=== PATIENT | male | born 1945 | race Caucasian/White ===

== ENCOUNTER → 2018-07-04 06:30 | Outpatient (CLI) | payer BC, SELFPAY ==
[2018-07-04 07:31] LABS: Absolute Lymphocyte Count 1.64 X10^3/ul (0.83-4.51); Absolute Neutrophil Count 3.8 X10^3/uL (2.0-7.7); Basophil# 0.04 X10^3/uL; Basophil% 0.6 % (0-1); Eosinophil# 0.34 X10^3/uL; Eosinophils% 5.2 % (0-5); Hemoglobin 15.2 g/dl (13.0-16.5); Lymphocyte # 1.64 X10^3/ul (4.0); Lymphocyte % 25.1 % (19-41); Mean Corp Hgb Conc 32.3 g/gl (32-36); Mean Corpuscular Hgb 34.3 pg (27.0-32.0); Mean Corpuscular Volume 106.1 fL (80-94); Mean Platelet Vol. 10.7 fl (6.2-12.0); Monocyte# 0.75 X10^3/uL; Monocyte% 11.5 % (0-10); Neutrophil # 3.75 X10^3/uL (2.7-7.7); Neutrophil % 57.4 % (47-70); POSITIVE COUNT NO; POSITIVE DIFFERENTIAL NO; POSITIVE MORPHOLOGY NO; Platelet Count 169 K/mm3 (150-450); RBC Distribution Width CV 13.5 % (11.6-14.6); RBC Distribution Width SD 52.5 fl (35.1-43.9); Red Blood Count 4.43 M/mm3 (4.6-6.2); White Blood Count 6.5 K/mm3 (4.4-11.0)
[2018-07-04 07:34] LABS: Color, Urine Yellow (Yellow); Glucose, Dipstick Normal (Normal); Ketone-Dipstick Negative (Negative); Leukocyte Esterase-Dipstick 25 /ul (Negative); Nitrite-Dipstick Negative (Negative); Occult Blood-Urine 10 /ul (Negative); Protein-Dipstick 15 mg/dl (Negative); Specific Gravity, Urine 1.015 (1.002-1.030); Urine Bilirubin Dipstick Negative (Negative); Urine Clarity Clear (Clear); Urine Urobilinogen 1 mg/dl (Normal); Urine pH 6.5 (5.0 - 8.0)
[2018-07-04 07:46] LABS: AST(SGOT) 22 U/L (15-37); Alanine Aminotransfer ALT/SGPT 26 U/L (16-61); Albumin, Serum 3.6 g/dL (3.2-5.0); Alkaline Phosphatase 129 U/L (45-117); Anion Gap 9 (5-15); BUN 16 mg/dL (7-18); BUN/Creat Ratio 15.7 RATIO (10-20); Calcium,Total 8.9 mg/dL (8.5-10.1); Chloride 103 mmol/L (98-107); Cholesterol 110 mg/dL (200); Creatinine, Serum 1.02 mg/dL (0.70-1.30); EST Glomerular Filtration Rate 76 mL/min (>60); Est Glom Filt Rate - Afr Amer 92 mL/min (>60); Globulin 3.7 g/dL (2.2-4.2); Glucose 123 mg/dL (74-106); High Density Lipoprotein 57 mg/dL; PSA,Total - Annual Screen 2.93 ng/mL (0.00-4.00); Protein, Total 7.3 g/dL (6.4-8.2); Sodium Level 142 mmol/L (136-145); Triglycerides 39 mg/dL; Very Low Density Lipoprotein 8 mg/dL (5-40)
[2018-07-04 07:58] LABS: Hemoglobin A1c 6.3 % (4.2-6.3)
== END ==
PROVIDERS: Family Provider Family Medicine; PCP Family Medicine; Visit Provider Family Medicine
DX: Z00.00 Encounter for general adult medical examination without abnormal findings (principal); E53.8 Deficiency of other specified B group vitamins; E78.70 Disorder of bile acid and cholesterol metabolism, unspecified; I10 Essential (primary) hypertension; E11.9 Type 2 diabetes mellitus without complications; Z12.5 Encounter for screening for malignant neoplasm of prostate
CPT/HCPCS: 36415; 80053; 80061; 81002; 83036; 84153; 85025; G0103

== ENCOUNTER → 2019-01-09 08:28 | Outpatient (CLI) | payer BC, SELFPAY ==
[2018-05-19 10:23] VITALS: BMI 28.3
[2019-01-09 16:07] LABS: Hemoglobin A1c 6.2 % (4.2-6.3)
[2019-01-09 16:33] LABS: Cholesterol 119 mg/dL (200); High Density Lipoprotein 70 mg/dL; Triglycerides 39 mg/dL; Very Low Density Lipoprotein 8 mg/dL (5-40)
== END ==
PROVIDERS: Family Provider Family Medicine; PCP Family Medicine
DX: E11.9 Type 2 diabetes mellitus without complications (principal); E78.00 Pure hypercholesterolemia, unspecified
CPT/HCPCS: 36415; 80061; 83036

== ENCOUNTER → 2019-07-13 07:56 | Outpatient (CLI) | payer BC, SELFPAY ==
[2018-05-19 10:23] VITALS: BMI 28.3
[2019-07-13 08:26] LABS: Absolute Lymphocyte Count 1.48 X10^3/uL (0.83-4.51); Absolute Neutrophil Count 5.9 X10^3/uL (2.0-7.7); Basophil# 0.05 X10^3/uL; Basophil% 0.6 % (0-1); Eosinophil# 0.39 X10^3/uL; Eosinophils% 4.5 % (0-5); Hematocrit 44.5 % (40-54); Hemoglobin 14.6 g/dL (13.0-16.5); Lymphocyte # 1.48 X10^3/ul (4.0); Lymphocyte % 17.1 % (19-41); Mean Corp Hgb Conc 32.8 g/dL (32-36); Mean Corpuscular Hgb 34.6 pg (27.0-32.0); Mean Corpuscular Volume 105.5 fL (80-94); Mean Platelet Vol. 10.8 fl (6.2-12.0); Monocyte# 0.85 X10^3/uL; Monocyte% 9.8 % (0-10); NRBC Flagged by Analyzer 0 % (0-5); Neutrophil # 5.87 X10^3/uL (2.7-7.7); Neutrophil % 67.7 % (47-70); Platelet Count 177 K/mm3 (150-450); RBC Distribution Width CV 12.8 % (11.6-14.6); Red Blood Count 4.22 M/mm3 (4.6-6.2); White Blood Count 8.7 K/mm3 (4.4-11.0)
[2019-07-13 08:27] LABS: Color, Urine Yellow (Yellow); Glucose, Dipstick Normal (Normal); Ketone-Dipstick 5 mg/dl (Negative); Leukocyte Esterase-Dipstick 100 /ul (Negative); Nitrite-Dipstick Negative (Negative); Occult Blood-Urine 10 /ul (Negative); Protein-Dipstick 30 mg/dl (Negative); Specific Gravity, Urine 1.025 (1.002-1.030); Urine Bilirubin Dipstick Negative (Negative); Urine Clarity Sl. Cloudy (Clear); Urine Urobilinogen 1 mg/dl (Normal)
[2019-07-13 08:56] LABS: ALB/GLOB Ratio 1.1 RATIO (0.9-2.4); AST(SGOT) 23 U/L (15-37); Alanine Aminotransfer ALT/SGPT 28 U/L (16-61); Albumin, Serum 3.9 g/dL (3.2-5.0); Alkaline Phosphatase 123 U/L (45-117); Anion Gap 8 (5-15); BUN 28 mg/dL (7-18); BUN/Creat Ratio 24.1 RATIO (10-20); Calcium,Total 9.1 mg/dL (8.5-10.1); Chloride 106 mmol/L (98-107); Cholesterol 131 mg/dL (200); Creatinine, Serum 1.16 mg/dL (0.70-1.30); EST Glomerular Filtration Rate 65 mL/min (>60); Est Glom Filt Rate - Afr Amer 79 mL/min (>60); Globulin 3.7 g/dL (2.2-4.2); Glucose 128 mg/dL (74-106); High Density Lipoprotein 61 mg/dL; PSA,Total - Annual Screen 3.17 ng/mL (0.00-4.00); Potassium 3.9 mmol/L (3.5-5.1); Protein, Total 7.6 g/dL (6.4-8.2); Sodium Level 142 mmol/L (136-145); Triglycerides 58 mg/dL; Very Low Density Lipoprotein 12 mg/dL (5-40)
== END ==
PROVIDERS: Family Provider Family Medicine; PCP Family Medicine; Referring Provider Family Medicine; Visit Provider Family Medicine
DX: Z00.00 Encounter for general adult medical examination without abnormal findings (principal); E11.9 Type 2 diabetes mellitus without complications; I10 Essential (primary) hypertension; E78.00 Pure hypercholesterolemia, unspecified; D51.0 Vitamin B12 deficiency anemia due to intrinsic factor deficiency; Z12.5 Encounter for screening for malignant neoplasm of prostate
CPT/HCPCS: 36415; 80053; 80061; 81002; 83036; 84153; 85025; G0103

== ENCOUNTER → 2019-08-03 09:05 | Outpatient (CLI) | payer BC, SELFPAY ==
[2019-07-23 08:37] VITALS: BMI 27.1
--- NOTE | 2019-08-03 09:12 | EKG12_ITS ---
Test Reason : PRE-OP Blood Pressure : / mmHG Vent. Rate : 052 BPM Atrial Rate : 052 BPM P-R Int : 178 ms QRS Dur : 092 ms QT Int : 448 ms P-R-T Axes : 058 -07 023 degrees QTc Int : 416 ms Sinus bradycardia Otherwise normal ECG Confirmed by DOV KUO, ARLEEN ([id number]), book editor VIJAYA WILSON ([id number]) on 08/06/2019 9:45:11 AM Referred By: Nasir Lopez Confirmed By:ARLEEN MONAE MD
--- NOTE | 2019-08-03 09:17 | RAD_ITS ---
STUDY: X-RAY CHEST REASON FOR EXAM: Male, 74 years old. Pre-op TECHNIQUE: Frontal and lateral views of the chest. COMPARISON: None. FINDINGS: The lungs are hyperexpanded. There are coarsened interstitial markings suggestive of mild chronic fibrosis. No gross focal infiltrates. No gross effusions. Normal size heart. Normal mediastinum and trisha. Normal visualized pulmonary arteries. Normal visualized aortic arch and descending thoracic aorta. Normal visualized thoracic spine. Normal visualized ribs, clavicles, and shoulders. There is no demonstrated abnormality of the visualized soft tissue structures of the upper abdomen. RAD/Chest PA and Lateral IMPRESSION: There are findings consistent with COPD. There is no evidence of acute chest disease. Electronically Signed: Bijan Lopez MD at 14:01 EST , Service support ,
== END ==
PROVIDERS: Family Provider Family Medicine; PCP Family Medicine; Referring Provider Orthopaedic Surgery; Visit Provider Orthopaedic Surgery
DX: Z01.810 Encounter for preprocedural cardiovascular examination (principal); Z01.811 Encounter for preprocedural respiratory examination
CPT/HCPCS: 71046; 93005

== ENCOUNTER 2019-10-05 08:43 | Inpatient (IN) | payer BC, MEDICARE, SELFPAY ==
[2019-07-23 08:37] VITALS: BMI 27.1
[2019-10-05] VITALS (15 sets, daily range): BP systolic 114–143; BP diastolic 47–93; PULSE 63–115; RESP 13–20; TEMP 36.6–37.3; O2SAT 94–98; BMI 27.8; BMI 27.5
--- NOTE | 2019-10-05 08:52 | EKG12_ITS ---
Test Reason : SYNCOPE Blood Pressure : / mmHG Vent. Rate : 088 BPM Atrial Rate : 129 BPM P-R Int : 000 ms QRS Dur : 086 ms QT Int : 376 ms P-R-T Axes : 000 -12 008 degrees QTc Int : 454 ms Atrial fibrillation Abnormal ECG Confirmed by ANAND KOU, CHARLY ([id number]), photograph editor VIJAYA WILSON ([id number]) on 10/09/2019 9:04:04 AM Referred By: José Miguel Sibley Confirmed By:CHARLY MICHEL MD
--- NOTE | 2019-10-05 08:53 | ED.VIS.GEN ---
History of Present Illness Chief Complaint: Syncope Detail of Chief Complaint: Near syncope Informant: Patient Onset: Today Current Severity: - - Resolved Maximum Severity: Moderate Narrative: Patient had right knee replacement performed on October 01. Patient started physical therapy yesterday. He states he got up this morning and took 2 oxycodone and went to take a shower before PT. He became dizzy and lightheaded in the shower and felt as if he may pass out. He denies chest pain or palpitations. He does not feel short of breath. - Past Medical History (1) High cholesterol Status: Chronic (2) Premature atrial contractions Status: Chronic (3) Premature ventricular contraction Status: Chronic (4) Valvular heart disease Status: Chronic (5) Essential hypertension Status: Chronic (6) Nonrheumatic aortic (valve) insufficiency Status: Chronic (7) Nonrheumatic mitral valve regurgitation Status: Chronic (8) Type 2 diabetes mellitus Status: Chronic Past Medical History - Allergies and Home Meds Allergies/Adverse Reactions: Allergies No Known Allergies Allergy (Unverified 10/05/19 08:47) Primary Care Physician: David Malin MD [Primary Care Provider] - Doctors: Dr. Nasir Lopez Prior records reviewed: Yes Surgical History: - - Right knee replacement Lives: Spouse/ Significant Other Smoking Status: Former smoker Review of Systems General: Denies: Chills, Fever Eyes: Denies: Visual changes - bilaterally ENT: Denies: Bilateral ear pain Cardiovascular: Denies: Chest pain, Palpitations Respiratory: Denies: Dyspnea, Cough Gastrointestinal: Denies: Abdominal pain, Nausea, Vomiting, Diarrhea Musculoskeletal: Reports: Arthralgias, Extremity Pain Skin: Reports: Wounds Neurological: Denies: Headache Hematologic: Denies: Easy bruising Allergy: Denies: Uticaria Physical Exam Vital Signs/Narrative: Vital Signs Temp Pulse Resp BP Pulse Ox 10/05/19 08:49 97.8 F 101 H 18 127/75 H 97 10/05/19 08:44 97.8 F 95 16 127/75 H 95 Inital Vital Signs reviewed: Yes General: Well nourished, Well developed Head: Normocephalic ENT: Moist mucous membranes Neck: Supple Cardiovascular: Irregular Respiratory: No distress, CTA bilaterally Abdomen: Soft, Nontender, Nondistended Extremities: - - Healing incision over the anterior right knee. Mild surrounding ecchymosis. Calf is soft nontender. Neurological: Alert, Oriented x3 Psychological: Normal affect Diagnostic/Tx/Re-eval Impressions Chest CTA 10/05/19 09:07 IMPRESSION: No demonstrated PE, or thoracic aortic aneurysm or dissection Chronic interstitial changes in both lung chapa without a superimposed infiltrate or effusion, there is evidence of chronic bronchitis Degenerative bony changes Electronically Signed: Bryant Rm MD at 10:15 EST , Service support , 10/05/19 09:07 CTA Chest W/WO Contrast [CT] Stat Laboratory Results 10/05/19 10/05/19 09:00 09:00 WBC 15.0 H RBC 3.26 L Hgb 10.9 L Hct 33.8 L MCV 103.7 H MCH 33.4 H MCHC 32.2 RDW Std Deviation 51.0 H RDW Coeff of Victorina 13.4 Plt Count 184 MPV 11.1 Immature Gran % (Auto) 0.500 Neut % (Auto) 81.8 H Lymph % (Auto) 8.5 L [place] % (Auto) 6.9 Eos % (Auto) 2.0 Baso % (Auto) 0.3 Absolute Neuts (auto) 12.3 H Absolute Lymphs (auto) 1.28 Nucleated RBC % 0 Sodium 138 Potassium 3.6 Chloride 102 Carbon Dioxide 28.0 Anion Gap 8 BUN 20 H Creatinine 1.31 H Estim Creat Clear Calc 49.53 Est GFR (MDRD) Af Amer 68 Est GFR (MDRD) Non-Af 57 L BUN/Creatinine Ratio 15.3 Glucose 180 H Calcium 9.2 Troponin I < 0.015 - EKG Initial EKG Interpretation: Atrial Fibrillation - Atrial fibrillation [address] change. - Medical Decision Making Patient presents after near syncopal episode after taking his pain medication and getting a warm shower. The patient, however, is a new onset atrial fibrillation. It appears patient does have history of PACs and PVCs, but no documented history of atrial fibrillation. I spoke with patient's orthopedist, Dr. Nasir Lopez. Patient is given dose of Lovenox. Patient will be admitted for further treatment. ED Disposition - Plan for ED Patient: Disposition: Acute Care [facility] Diagnosis: New onset a-fib, Near syncope Referrals: David Malin MD [Primary Care Provider] -
[2019-10-05] MEDS: 0.9% Normal Saline 1,000 ML 150 ML IV (09:06)
--- NOTE | 2019-10-05 09:07 | CT_ITS ---
STUDY: CTA CHEST REASON FOR EXAM: Male, 74 years old. PT STATED KNEE REPLACEMENT X 4 DAYS AGO, DIZZINESS TODAY IN THE SHOWER RADIATION DOSAGE (If Supplied By Facility): CTDIvol = ( 13.61 ) mGy, DLP = ( 493.91 ) mGycm TECHNIQUE: The examination was performed with the intravenous administration of 100ml isovue 370. Post-processing of the angiographic images was performed, with multiplanar reformation and 3D reconstruction. Individualized dose optimization techniques were used for this CT. COMPARISON: None. FINDINGS: Normal enhancement of the main pulmonary artery and right and left pulmonary arteries. Normal enhancement of the bilateral peripheral pulmonary arteries. There is no demonstrated pulmonary embolism. Normal thoracic aorta and visualized great vessels. There is no demonstrated aortic dissection. Normal heart and pericardium. Normal mediastinum. Normal hilar regions. There is peribronchial thickening. The lungs are well expanded. Chronic interstitial changes in both lung chapa, no superimposed acute pulmonary process. Normal pleura. Normal chest wall structures. There are degenerative changes of thoracic spine. Normal visualized upper abdomen. CT/CTA Chest W/WO Contrast IMPRESSION: No demonstrated PE, or thoracic aortic aneurysm or dissection Chronic interstitial changes in both lung chapa without a superimposed infiltrate or effusion, there is evidence of chronic bronchitis Degenerative bony changes Electronically Signed: Bryant Rm MD at 10:15 EST , Service support ,
[2019-10-05 09:18] LABS: Absolute Lymphocyte Count 1.28 X10^3/uL (0.83-4.51); Absolute Neutrophil Count 12.3 X10^3/uL (2.0-7.7); Basophil# 0.05 X10^3/uL; Basophil% 0.3 % (0-1); Hematocrit 33.8 % (40-54); Hemoglobin 10.9 g/dL (13.0-16.5); Lymphocyte # 1.28 X10^3/ul (4.0); Lymphocyte % 8.5 % (19-41); Mean Corp Hgb Conc 32.2 g/dL (32-36); Mean Corpuscular Hgb 33.4 pg (27.0-32.0); Mean Corpuscular Volume 103.7 fL (80-94); Mean Platelet Vol. 11.1 fl (6.2-12.0); Monocyte# 1.04 X10^3/uL; Monocyte% 6.9 % (0-10); NRBC Flagged by Analyzer 0 % (0-5); Neutrophil # 12.29 X10^3/uL (2.7-7.7); Neutrophil % 81.8 % (47-70); Platelet Count 184 K/mm3 (150-450); RBC Distribution Width CV 13.4 % (11.6-14.6); Red Blood Count 3.26 M/mm3 (4.6-6.2)
[2019-10-05 09:37] LABS: Anion Gap 8 (5-15); BUN 20 mg/dL (7-18); BUN/Creat Ratio 15.3 RATIO (10-20); Calcium,Total 9.2 mg/dL (8.5-10.1); Chloride 102 mmol/L (98-107); Creatinine, Serum 1.31 mg/dL (0.70-1.30); EST Glomerular Filtration Rate 57 mL/min (>60); Est Glom Filt Rate - Afr Amer 68 mL/min (>60); Estimated Creatinine Clearance 49.53 ml/min; Glucose 180 mg/dL (74-106); Potassium 3.6 mmol/L (3.5-5.1); Sodium Level 138 mmol/L (136-145)
--- NOTE | 2019-10-05 10:32 | NURSING ---
DR RAMIREZ FOR DR CANDELARIA
--- NOTE | 2019-10-05 10:34 | NURSING ---
ANDRZEJU AFIB ASHLEY
[2019-10-05] MEDS: Enoxaparin 80 MG/0.8 ML Syringe SC ×2 (10:37→20:48)
--- NOTE | 2019-10-05 10:45 | PCM.HP.STD ---
Problem List (1) High cholesterol Status: Chronic (2) Near syncope Status: Acute (3) Essential hypertension Status: Chronic (4) Valvular heart disease Status: Chronic (5) Premature atrial contractions Status: Chronic (6) Type 2 diabetes mellitus Status: Chronic (7) Nonrheumatic aortic (valve) insufficiency Status: Chronic (8) Nonrheumatic mitral valve regurgitation Status: Chronic (9) Premature ventricular contraction Status: Chronic History of Present Illness Date of Admission: 10/05/19 Chief Complaint: Near syncope and new onset A. fib The patient is a 74 year old M with history of hypertension, valvular heart disease mild to moderate MR came to ER with near syncope and was found to be A. fib. Patient had right TKR on 10/01/[address] Nasir Lopez. In the morning today he took 2 oxycodone tablets and went to take a shower before physical therapy. He felt dizzy lightheaded in the shower but did not pass out. Denies any chest pain or palpitation. No shortness of breath. He has chronic cough for more than 3 months. No fever or chills, URI symptoms or lower urinary tract symptoms. In ED, EKG shows atrial fibrillation at 88 bpm. Previous EKG in August 2019 was normal sinus rhythm. Denies any previous history of A. fib. Basic labs in the ER shows leukocytosis 15,000, K3.6. BUN/creatinine 20/1.31. Glucose 180. First troponin negative Chest CT was done for concern of PE but was negative. Chronic interstitial changes found in both lung chapa without a superimposed infiltrate or effusion. Evidence of chronic bronchitis. Past Medical History Past Medical History (Chronic Problems): Chronic Problems (Last Reviewed 07/23/19 @ 08:42 by Asha Childers) High cholesterol (Chronic) Essential hypertension (Chronic) Valvular heart disease (Chronic) Premature atrial contractions (Chronic) Type 2 diabetes mellitus (Chronic) Nonrheumatic aortic (valve) insufficiency (Chronic) Nonrheumatic mitral valve regurgitation (Chronic) Premature ventricular contraction (Chronic) Medical History: Medical History (Last Reviewed 07/23/19 @ 08:42 by Asha Childers) Essential hypertension (Chronic) I10 Valvular heart disease (Chronic) I38 Premature atrial contractions (Chronic) I49.1 Type 2 diabetes mellitus (Chronic) E11.9 Nonrheumatic aortic (valve) insufficiency (Chronic) I35.1 Nonrheumatic mitral valve regurgitation (Chronic) I34.0 Premature ventricular contraction (Chronic) I49.3 Gout M10.9 Pernicious anemia D51.0 GERD (gastroesophageal reflux disease) K21.9 Allergies No Known Allergies Allergy (Unverified 10/05/19 08:47) Home Medications: Ambulatory Orders Medication Instructions Recorded allopurinol 300 mg tablet 300 mg PO QDAY 03/01/18 aspirin 81 mg tablet,delayed 81 mg PO BID 03/01/18 release atenolol 50 mg tablet 50 mg PO BID tab 03/01/18 enalapril maleate 20 mg tablet 20 mg PO BID tab 03/01/18 hydrochlorothiazide 25 mg tablet 25 mg PO QDAY 03/01/18 metformin 500 mg tablet 500 mg PO BID 03/01/18 mnmqxhtb-dphljgm-vgn-iron 3 1 tab PO QDAY tab 03/01/18 mg-folic 200 mcg-phytosterol 400 mg tablet Amlodipine Besylate 10 mg PO DAILY 10/05/19 Cholestrol Essential 1 tab PO BID 10/05/19 Esomeprazole Mag Trihydrate 20 mg PO DAILY 10/05/19 [Nexium] Glucos Sul 2Kcl/MSM/Chond/C/Mn 1 ea PO DAILY 10/05/19 [Glucosamine Chondroitin Cap] Hydrocodone Bitart/Apap 5-325 1 - 2 tab PO Q4H PRN PRN 10/05/19 [Niota 5MG-325MG] Milk Thistle 150 mg PO BID 10/05/19 Morphine [Morphine IR] 15 mg PO BID 10/05/19 Sennosides/Docusate Sodium [Dok 1 ea PO BID 10/05/19 Plus Tablet] Ubidecarenone/Vit E Acet [Co Q-10 1 ea PO DAILY 10/05/19 100 mg Softgel] Surgical History: Surgical History (Last Reviewed 07/23/19 @ 08:42 by Asha Childers) History of hernia repair Z98.890, Z87.19 Surgical History: - - Right knee replacement Lives: Spouse/ Significant Other Smoking Status: Former smoker - *Family History Paternal Family History: Family History (Last Reviewed 07/23/19 @ 08:42 by Asha Childers) Sister Sudden cardiac History Items: Heart Disease - Sister had sudden cardiac . Review of Systems Constitutional: Denies: Chills, Fever, Weight Change HEENT: Denies: Head Aches, Sinus Congestion, Sinus Drainage Cardiovascular: Denies: Palpitations Respiratory: Reports: Cough - Chronic cough for 3 months. Denies: Shortness of Breath, Shortness of breath at rest, Shortness of breath upon exertion, Sputum production Gastrointestinal: Denies: Abdominal Pain, Nausea, Vomiting Genitourinary: Denies: Dysuria Musculoskeletal: Denies: Joint Pain, Joint Tenderness Skin: Denies: Rash, Wounds Neurological: Reports: - - Right TKR. Denies: Focal weakness, Numbness, Tingling Psychiatric: Denies: Anxiety, Depression, Homicidal Ideations, Suicidal Ideations Hematologic/ Lymphatic: Denies: Easy Bruising, Easy Bleeding VTE Information - Inpt Only VTE Present on Admission: No VTE Mechan Device Prophylaxis: None VTE Pharm Prophylaxis ordered?: Yes Patient Problems: Active and Suspected Problems (Last Reviewed 07/23/19 @ 08:42 by Asha Childers) New onset a-fib (Acute) Near syncope (Acute) - Physical Exam Vitals/I&O's: Vital Signs Temp Pulse Resp BP Pulse Ox 97.8 F 115 H 13 134/93 H 96 10/05/19 08:49 10/05/19 10:08 10/05/19 10:08 10/05/19 10:08 10/05/19 10:08 Oxygen Delivery Method Room Air Weight: 193 lb 12.581 oz Body Mass Index (BMI) 27.8 General: Alert, Oriented x3, Cooperative HEENT: Atraumatic, PERRLA, EOMI, Normocephalic Oral: Moist Mucosa, No Gingival or Mucosal Lesions/ Ulcerations Neck: Supple, No JVD, Negative Carotid Bruits Lungs: Clear to auscultation, No rhonchi, No wheeze, No rales, Diminished - Air entry is diminished in bilateral lung bases. Cardiovascular: Regular rate, Normal S1, Irregular Rate, Murmur - Holosystolic murmur present over apex. Abdomen: Bowel Sounds Present, Soft, Non Tender, Non-Distended Extremities: Capillary Refill Less than 3 Seconds, Edema - Mild postoperative edema over right TKR surgical region. Dressing is dry. Skin: No rashes, No breakdown Musculoskeletal: No Tenderness to Palpation of Joints or Extremities, Arthritic Changes Neurological: Cranial nerves II-XII grossly intact, Deep Tendon Reflexes 2+/4 and Symmetrical, Neuro grossly intact Psych/Mental Status: Normal Affect, Appropriate Laboratory Results 10/05/19 09:00: WBC 15.0 H, RBC 3.26 L, Hgb 10.9 L, Hct 33.8 L, MCV 103.7 H, MCH 33.4 H, MCHC 32.2, RDW Std Deviation 51.0 H, RDW Coeff of Victorina 13.4, Plt Count 184, MPV 11.1, Immature Gran % (Auto) 0.500, Neut % (Auto) 81.8 H, Lymph % (Auto) 8.5 L, [place] % (Auto) 6.9, Eos % (Auto) 2.0, Baso % (Auto) 0.3, Absolute Neuts (auto) 12.3 H, Absolute Lymphs (auto) 1.28, Nucleated RBC % 0 10/05/19 09:00: Sodium 138, Potassium 3.6, Chloride 102, Carbon Dioxide 28.0, Anion Gap 8, BUN 20 H, Creatinine 1.31 H, Estim Creat Clear Calc 49.53, Est GFR (MDRD) Af Amer 68, Est GFR (MDRD) Non-Af 57 L, BUN/Creatinine Ratio 15.3, Glucose 180 H, Calcium 9.2, Troponin I < 0.015 Current Medications Sodium Chloride () 1,000 mls @ 150 mls/hr IV .Q6H40M [facility] Last Admin: 10/05/19 09:06 Dose: 150 mls/hr Documented by: Assessment/Plan All Active Problems (Last Reviewed 07/23/19 @ 08:42 by Asha Childers) New onset a-fib (Acute) Near syncope (Acute) The patient is a 74 year old M with history of hypertension, valvular heart disease mild to moderate MR came to ER with near syncope and was found to be A. fib. Patient had right TKR on 10/01/[address] Nasir Lopez. In the morning today he took 2 oxycodone tablets and went to take a shower before physical therapy. He felt dizzy lightheaded in the shower but did not pass out. Denies any chest pain or palpitation. No shortness of breath. In ED, EKG shows atrial fibrillation at 88 bpm. Previous EKG in August 2019 was normal sinus rhythm. Denies any previous history of A. fib. Basic labs in the ER shows leukocytosis 15,000, K3.6. BUN/creatinine 20/1.31. Glucose 180. First troponin negative Chest CT was done for concern of PE but was negative. Chronic interstitial changes found in both lung chapa without a superimposed infiltrate or effusion. Evidence of chronic bronchitis. 1. Near syncope probably related to new onset A. fib: Patient is being admitted in PCU for further work-up. Serial troponin enzymes. 2D echo ordered. Patient denies any previous history of [place], arrhythmia or stroke. 2. New onset A. fib with RVR: Patient came to ER with heart rate 115/min. Currently it is controlled, heart rate in 90s. Started on metoprolol 50 mg twice daily, titrate up the dose to control RVR. Patient on atenolol 50 mg twice daily at home. IV fluid Ringer lactate 100 mils per hour for 1 L. Magnesium is normal. 3. Hypertension: Continue amlodipine and enalapril 4. Mitral regurgitation: Patient had echo in January 2017 reported as EF 60% with no regional wall motion abnormality. Moderate to severe LAE, right atrium mildly enlarged. 1+ mitral regurgitation with moderate mitral annular calcification. Moderate TR, RVSP 42 Hg. Mild AR. Patient had exercise EKG stress test done on January 2017 reported as technically inadequate. No obvious ECG changes. Occasional PVCs. Repeat echo ordered. Discussed with Dr. Madden, his primary hospice rn. 5. Diabetes mellitus type 2: Glucose 180. Accu-Cheks before meals and at bedtime and cover with Humalog sliding scale continue metformin. 6. Recent right TKR: Stable. ER physician consulted Dr. Nasir Lopez. 7. Chronic cough with chest CT picture of chronic interstitial changes and evidence of chronic bronchitis/emphysema: Patient states he uses 2 years of smoking during teenage. Will Need formal PFT and pulmonary clinic visit. Laboratory Results 10/05/19 09:00: WBC 15.0 H, RBC 3.26 L, Hgb 10.9 L, Hct 33.8 L, MCV 103.7 H, MCH 33.4 H, MCHC 32.2, RDW Std Deviation 51.0 H, RDW Coeff of Victorina 13.4, Plt Count 184, MPV 11.1, Immature Gran % (Auto) 0.500, Neut % (Auto) 81.8 H, Lymph % (Auto) 8.5 L, [place] % (Auto) 6.9, Eos % (Auto) 2.0, Baso % (Auto) 0.3, Absolute Neuts (auto) 12.3 H, Absolute Lymphs (auto) 1.28, Nucleated RBC % 0 10/05/19 09:00: Sodium 138, Potassium 3.6, Chloride 102, Carbon Dioxide 28.0, Anion Gap 8, BUN 20 H, Creatinine 1.31 H, Estim Creat Clear Calc 49.53, Est GFR (MDRD) Af Amer 68, Est GFR (MDRD) Non-Af 57 L, BUN/Creatinine Ratio 15.3, Glucose 180 H, Calcium 9.2, Troponin I < 0.015 10/05/19 09:00: Magnesium 1.9 Clinical Impression(s) from Imaging Studies Chest CTA 10/05/19 09:07 IMPRESSION: No demonstrated PE, or thoracic aortic aneurysm or dissection Chronic interstitial changes in both lung chapa without a superimposed infiltrate or effusion, there is evidence of chronic bronchitis Degenerative bony changes [] Code Visit Inpatient E&M: 15363 Init Hosp L3
--- NOTE | 2019-10-05 12:10 | ECHOD_ITS ---
Reason For Study: New onset A. fib Procedure This was a 2D Doppler, Color Flow transthoracic echocardiogram. Exam performed portable in patient room. Left Ventricle Normal LV size. Left ventricular systolic function is normal. The estimated ejection fraction is 60 %. Unable to assess diastolic dysfunction due to arrhythmia. No regional wall motion abnormalities noted. Right Ventricle Normal RV size. Normal systolic function. Atria The left atrium is moderately enlarged. The right atrium is mildly enlarged. Mitral Valve There is moderate mitral annular calcification. Mild (1+) eccentric mitral valve insufficiency. Tricuspid Valve Normal tricuspid valve. Mild (1+) tricuspid valve insufficiency. Pulmonary artery systolic pressure is 35 mmHg. Aortic Valve Trisinus/trileaflet aortic valve. Mild (1+) eccentric aortic valve insufficiency. Pulmonic Valve Normal pulmonic valve. Great Vessels Mildly dilated aortic root. The pulmonary artery is normal size. Normal inferior vena cava. Pericardium/Pleural No pericardial effusion. MMode/2D Measurements & Calculations LVIDd: 4.0 cm IVSd: 1.3 cm Ao root diam: 3.9 cm LVIDs: 2.5 cm LVPWd: 1.1 cm RVDd: 4.4 cm FS: 37.3 % LAV(MOD-bp): 97.1 ml LA A4 area: 29.2 cm2 LA dimension(2D): 4.1 cm LAV(MOD-bp) Indexed: 47.4 ml/m2 LAV(MOD-sp2): 99.9 ml LAV(MOD-sp4): 96.0 ml RA A4 area: 20.9 cm2 Doppler Measurements & Calculations MV E max alta: 103.5 cm/sec Ao V2 max: 131.4 cm/sec AI max alta: 376.0 cm/sec Ao max P.0 mmHg AI max P.6 mmHg AI dec slope: 180.5 cm/sec2 AI P1/2t: 610.0 msec LV V1 max: 88.8 cm/sec PA V2 max: 118.6 cm/sec TR max alta: 275.6 cm/sec LV V1 max P.2 mmHg TR max P.4 mmHg Interpretation Summary Normal LV size. Left ventricular systolic function is normal. The estimated ejection fraction is 60 %. Pulmonary artery systolic pressure is 35 mmHg. The left atrium is moderately enlarged. Unable to assess diastolic dysfunction due to arrhythmia. Compared to prior study, there is no significant change. Ordering Physician: José Miguel Sibley Referring Physician: Kimo Hernandez Performed By: Svitlana Montes De Oca RDCS
[2019-10-05 12:30] LABS: Magnesium 1.9 mg/dL (1.6-2.6)
[2019-10-05] MEDS: Metoprolol Tartrate 50 MG Tablet PO (14:20)
[2019-10-05] MEDS: Lactated Ringers 1,000 ML 100 ML IV (14:35)
[2019-10-05] MEDS: oxyCODONE 5 MG Tablet PO (15:56)
[2019-10-05] MEDS: Senna/Docusate Sodium 1 Tablet 2 TABLET PO ×2 (16:33→20:48)
[2019-10-05 16:45] LABS: Bedside Glucose 118 mg/dL (70-110)
[2019-10-05] MEDS: Metoprolol Tartrate 25 MG Tablet 50 MG PO (17:17)
--- NOTE | 2019-10-05 20:05 | CON.PCM_ITS ---
Reason for Consult Date of Consultation: 10/05/19 History of Present Illness: The patient is a 74 year old male with multiple medical problems that underwent a right total knee replacement a primary hospital on Tuesday. He was discharged on October 02. Patient reportedly had a near syncopal episode and was brought to the hospital. He denies chest pain or shortness of breath. Denies knee pain. He was diagnosed with new onset atrial fibrillation. Admitted to the medical service and orthopedics consulted. [] Past Medical History Past Medical History (Chronic Problems): Chronic Problems (Last Reviewed 07/23/19 @ 08:42 by Asha Childers) High cholesterol (Chronic) Essential hypertension (Chronic) Valvular heart disease (Chronic) Premature atrial contractions (Chronic) Type 2 diabetes mellitus (Chronic) Nonrheumatic aortic (valve) insufficiency (Chronic) Nonrheumatic mitral valve regurgitation (Chronic) Premature ventricular contraction (Chronic) Medical History: Medical History (Last Reviewed 07/23/19 @ 08:42 by Asha Childers) Essential hypertension (Chronic) I10 Valvular heart disease (Chronic) I38 Premature atrial contractions (Chronic) I49.1 Type 2 diabetes mellitus (Chronic) E11.9 Nonrheumatic aortic (valve) insufficiency (Chronic) I35.1 Nonrheumatic mitral valve regurgitation (Chronic) I34.0 Premature ventricular contraction (Chronic) I49.3 Gout M10.9 Pernicious anemia D51.0 GERD (gastroesophageal reflux disease) K21.9 Allergies No Known Allergies Allergy (Unverified 10/05/19 08:47) Home Medications: Ambulatory Orders Medication Instructions Recorded allopurinol 300 mg tablet 300 mg PO QDAY 03/01/18 aspirin 81 mg tablet,delayed 81 mg PO BID 03/01/18 release atenolol 50 mg tablet 50 mg PO BID tab 03/01/18 enalapril maleate 20 mg tablet 20 mg PO BID tab 03/01/18 hydrochlorothiazide 25 mg tablet 25 mg PO QDAY 03/01/18 metformin 500 mg tablet 500 mg PO BID 03/01/18 ajiyfozl-tlgnbed-xvy-iron 3 1 tab PO QDAY tab 03/01/18 mg-folic 200 mcg-phytosterol 400 mg tablet Amlodipine Besylate 10 mg PO DAILY 10/05/19 Cholestrol Essential 1 tab PO BID 01/03/20 Esomeprazole Mag Trihydrate 20 mg PO DAILY 10/05/19 [Nexium] Glucos Sul 2Kcl/MSM/Chond/C/Mn 1 ea PO DAILY 10/05/19 [Glucosamine Chondroitin Cap] Hydrocodone Bitart/Apap 5-325 1 - 2 tab PO Q4H PRN PRN 10/05/19 [[place] 5MG-325MG] Milk Thistle 150 mg PO BID 10/05/19 Morphine [Morphine IR] 15 mg PO BID 10/05/19 Sennosides/Docusate Sodium [Dok 1 ea PO BID 10/05/19 Plus Tablet] Ubidecarenone/Vit E Acet [Co Q-10 1 ea PO DAILY 10/05/19 100 mg Softgel] Surgical History: Surgical History (Last Reviewed 07/23/19 @ 08:42 by Asha Childers) History of hernia repair Z98.890, Z87.19 Surgical History: total knee arthroplasty, - - Right knee replacement Lives: Spouse/ Significant Other Smoking Status: Former smoker - *Family History Paternal Family History: Family History (Last Reviewed 07/23/19 @ 08:42 by Asha Childers) Sister Sudden cardiac History Items: Heart Disease - Sister had sudden cardiac . Patient Problems: Active and Suspected Problems (Last Reviewed 07/23/19 @ 08:42 by Asha Childers) New onset a-fib (Acute) Near syncope (Acute) Objective: Right knee bandages on clean and dry. Right knee motion is 0-70 degrees without significant pain. Small knee effusion consistent with the surgery. Some redness about the knee consistent with the surgery. No blood noted on the Mepilex dressing. The superior border of the Mepilex dressing has come undone. No calf pain or swelling bilaterally. Negative Homans sign bilaterally. Good active motion of the feet and ankles. Able to do a straight leg raise on the right. No pain with axial loading of the right lower extremity. No hip pain with motion. Laboratory work and vital signs reviewed Notes from the ER doctor and hospitalist reviewed - Physical Exam Vitals/I&O's: Vital Signs Temp Pulse Resp BP Pulse Ox 99.2 F H 67 20 H 114/47 L 96 10/05/19 16:40 10/05/19 18:59 10/05/19 16:40 10/05/19 16:40 10/05/19 16:40 Oxygen Delivery Method Room Air Weight: 87.09 kg Body Mass Index (BMI) 27.5 Intake and Output for Last 24 Hours 10/03/19 10/04/19 10/05/19 23:59 23:59 23:59 Intake Total 842.5 / 842.5 Balance 842.5 / 842.5 Microbiology Past 72 Hours 10/05/19 12:27 Mucosa - Nose Rapid RSV (DFA) - Final 10/05/19 12:27 Mucosa - Nose Influenza Types A,B Direct FA (REJI) - Final Laboratory Results 10/05/19 09:00: WBC 15.0 H, RBC 3.26 L, Hgb 10.9 L, Hct 33.8 L, MCV 103.7 H, MCH 33.4 H, MCHC 32.2, RDW Std Deviation 51.0 H, RDW Coeff of Victorina 13.4, Plt Count 184, MPV 11.1, Immature Gran % (Auto) 0.500, Neut % (Auto) 81.8 H, Lymph % (Auto) 8.5 L, Pope % (Auto) 6.9, Eos % (Auto) 2.0, Baso % (Auto) 0.3, Absolute Neuts (auto) 12.3 H, Absolute Lymphs (auto) 1.28, Nucleated RBC % 0 10/05/19 09:00: Sodium 138, Potassium 3.6, Chloride 102, Carbon Dioxide 28.0, Anion Gap 8, BUN 20 H, Creatinine 1.31 H, Estim Creat Clear Calc 49.53, Est GFR (MDRD) Af Amer 68, Est GFR (MDRD) Non-Af 57 L, BUN/Creatinine Ratio 15.3, Glucose 180 H, Calcium 9.2, Troponin I < 0.015 10/05/19 09:00: Magnesium 1.9 10/05/19 12:30: Troponin I < 0.015 10/05/19 15:30: Troponin I < 0.015 10/05/19 16:31: POC Glucose 118 H Current Medications Acetaminophen (Tylenol) 650 mg PO Q6H PRN PRN PRN Reason: Pain Score 1-3/Temp > 100.7 F Allopurinol (Zyloprim) 300 mg PO DAILY [facility] Amlodipine Besylate (Norvasc) 10 mg PO DAILY [facility] Dextrose (D50w Syringe) 0 gm IV X1 PRN; Protocol PRN Reason: Hypoglycemia Enoxaparin Sodium (Lovenox) 80 mg SC Q12 [facility] Glucagon () 1 mg IM .X1 PRN PRN Reason: Hypoglycemia Guaifenesin (Robitussin) 20 ml PO Q4H PRN PRN PRN Reason: COUGH Hydrochlorothiazide (Hctz) 25 mg PO DAILY [facility] Sodium Chloride () 250 mls @ 15 mls/hr IV .[id number] PRN PRN Reason: Saline Flush Sodium Chloride () 250 mls @ 15 mls/hr IV .[id number] PRN PRN Reason: Additional IVPB Infusion Lactated Ringer's () 1,000 mls @ 100 mls/hr IV .Q10H [facility] Last Admin: 10/05/19 14:35 Dose: 100 mls/hr Documented by: Insulin Human Lispro (Humalog Kwikpen (Bkc)) 0 unit SC ACHS [facility]; Protocol Last Admin: 10/05/19 16:34 Dose: Not Given Documented by: Lisinopril (Zestril) 10 mg PO BID [facility] Metoprolol Tartrate (Lopressor (Beta Mike)) 5 mg IV Q6 PRN PRN Reason: HR>120/m Metoprolol Tartrate (Lopressor (Beta Mike)) 100 mg PO BID [facility] Morphine Sulfate () 2 mg IV Q3H PRN PRN PRN Reason: Pain Score 6-10/10 Morphine Sulfate (Ms Contin) 15 mg PO BID [facility] Nitroglycerin (Nitrostat) 0.4 mg SUBLINGUAL Q5M PRN PRN Reason: CARDIAC/CHEST PAIN Ondansetron HCl (Zofran) 4 mg IV Q8H PRN PRN PRN Reason: NAUSEA/VOMITING Oxycodone HCl (Oxyir) 5 mg PO Q4H PRN PRN PRN Reason: Pain Score 4-5/10 Last Admin: 10/05/19 15:56 Dose: 5 mg Documented by: Pantoprazole Sodium (Protonix) 20 mg PO DAILY [facility] Psyllium Hydrophilic Mucilloid (Metamucil) 1 packet PO DAILY PRN PRN PRN Reason: Constipation Senna/Docusate Sodium (Senokot-S, Divya-Colace) 2 tablet PO BID [facility] Last Admin: 10/05/19 16:33 Dose: 2 tablet Documented by: Sodium Chloride () 10 - 40 ml IV UD PRN PRN Reason: SALINE FLUSH Throat Lozenges (Cepacol Sore Throat Lozenge) 1 lozenge MUCOUS MEM Q2H PRN PRN PRN Reason: Sore Throat/Cough Assessment/Plan All Active Problems (Last Reviewed 07/23/19 @ 08:42 by Asha Childers) New onset a-fib (Acute) Near syncope (Acute) Right total knee replacement postoperative day #4 with new onset atrial fibrillation and near syncopal episode. Patient will continue on the medical service. On Lovenox for blood thinner. Patient understands the risks of hemorr jossy into the knee. I explained this is something we may have to deal with if it occurs. Continue with ice. New bandage will be applied by the nurse. Try to keep this intact. Can do JOLENE hose and SCDs on the lower extremities. Weight bearing as tolerated. Knee range of motion as tolerated. From an orthopedic standpoint he can be discharged when medically stable. He will keep his follow- up appointment in our office. I can be notified if further orthopedic input is necessary
[2019-10-05] MEDS: Lisinopril 10 MG Tablet PO (20:40)
[2019-10-05] MEDS: Metoprolol Tartrate 100 MG Tablet PO (20:40)
[2019-10-05] MEDS: morphine SR 15 MG Tablet PO (20:49)
[2019-10-06] VITALS (8 sets, daily range): BP systolic 99–134; BP diastolic 59–96; PULSE 62–77; RESP 16–18; TEMP 36.7–37.2; O2SAT 94–96
[2019-10-06] MEDS: Lactated Ringers 1,000 ML 100 ML IV ×2 (00:20→09:43)
[2019-10-06 00:32] LABS: Bedside Glucose 135 mg/dL (70-110)
[2019-10-06 06:55] LABS: Absolute Lymphocyte Count 1.46 X10^3/uL (0.83-4.51); Absolute Neutrophil Count 7.8 X10^3/uL (2.0-7.7); Basophil# 0.04 X10^3/uL; Basophil% 0.4 % (0-1); Eosinophil# 0.33 X10^3/uL; Eosinophils% 3.1 % (0-5); Hemoglobin 10.3 g/dL (13.0-16.5); Lymphocyte # 1.46 X10^3/ul (4.0); Lymphocyte % 13.6 % (19-41); Mean Corp Hgb Conc 32.2 g/dL (32-36); Mean Corpuscular Hgb 33.1 pg (27.0-32.0); Mean Corpuscular Volume 102.9 fL (80-94); Mean Platelet Vol. 11.5 fl (6.2-12.0); Monocyte# 1.11 X10^3/uL; Monocyte% 10.3 % (0-10); NRBC Flagged by Analyzer 0 % (0-5); Neutrophil # 7.77 X10^3/uL (2.7-7.7); Platelet Count 200 K/mm3 (150-450); RBC Distribution Width CV 13.2 % (11.6-14.6); RBC Distribution Width SD 49.1 fl (35.1-43.9); Red Blood Count 3.11 M/mm3 (4.6-6.2); White Blood Count 10.8 K/mm3 (4.4-11.0)
[2019-10-06 07:10] LABS: Bedside Glucose 99 mg/dL (70-110)
[2019-10-06 08:00] LABS: Anion Gap 6 (5-15); BUN 16 mg/dL (7-18); BUN/Creat Ratio 17.4 RATIO (10-20); Calcium,Total 8.7 mg/dL (8.5-10.1); Chloride 105 mmol/L (98-107); Cholesterol 107 mg/dL (200); Creatinine, Serum 0.92 mg/dL (0.70-1.30); EST Glomerular Filtration Rate 85 mL/min (>60); Est Glom Filt Rate - Afr Amer 103 mL/min (>60); Estimated Creatinine Clearance 70.53 ml/min; Glucose 108 mg/dL (74-106); High Density Lipoprotein 39 mg/dL; Potassium 3.7 mmol/L (3.5-5.1); Sodium Level 138 mmol/L (136-145); Thyroid Stim Hormone (TSH) 1.07 uIU/mL (0.358-3.74); Triglycerides 76 mg/dL; Very Low Density Lipoprotein 15 mg/dL (5-40)
[2019-10-06] MEDS: amLODIPine 10 MG Tablet PO (09:30)
[2019-10-06] MEDS: Senna/Docusate Sodium 1 Tablet 2 TABLET PO (09:30)
[2019-10-06] MEDS: morphine SR 15 MG Tablet PO (09:30)
[2019-10-06] MEDS: hydroCHLOROthiazide 25 MG Tablet PO (09:30)
[2019-10-06] MEDS: Lisinopril 10 MG Tablet PO (09:31)
[2019-10-06] MEDS: Pantoprazole Sodium 20 MG Tablet PO (09:31)
[2019-10-06] MEDS: Metoprolol Tartrate 100 MG Tablet PO (09:31)
[2019-10-06] MEDS: APIXABAN 5 MG TABLET PO (10:43)
[2019-10-06] MEDS: Allopurinol 300 MG Tablet PO (10:43)
--- NOTE | 2019-10-06 10:55 | DCINST_ITS ---
- Discharge Diagnoses Current Active Problems: Current Active and Chronic Problems (Last Reviewed 07/23/19 @ 08:42 by Asha Childers) New onset a-fib (Acute) Near syncope (Acute) You will use the following diet at home:: Calorie/Carbohydrate Controlled (specify 1200, 1400, etc) - Carb count diet, Cardiac Your food should be the consistency of: Regular Discharge Activity: May Not Drive - Recent TKR Weight Bearing Status: Weight bearing as tolerated Call your doctor if you observe: Fever of 101 or Higher, Coldness, Increased Pain, Numbness or Tingling, Change in Color, Inability to urinate, Inability to have a bowel movement, Shortness of breath, Fainting spells, Swelling in the ankles, Chest pain, Prolonged hiccoughing, Increased palpitations (irregular heartbeat), Calf discomfort, Uncontrolled pain Allergies/Adverse Reactions: Allergies No Known Allergies Allergy (Unverified 10/05/19 08:47) Medications to take at Discharge allopurinol 300 mg tablet 300 mg PO QDAY 03/01/18 metformin 500 mg tablet 500 mg PO BID 03/01/18 ibalnamg-fndwvfx-zon-iron 3 mg-folic 200 mcg-phytosterol 400 mg tablet 1 tab PO QDAY tab 03/01/18 Amlodipine Besylate 10 mg PO DAILY 10/05/19 Cholestrol Essential 1 tab PO BID 10/05/19 Esomeprazole Mag Trihydrate [Nexium] 20 mg PO DAILY 10/05/19 Glucos Sul 2Kcl/MSM/Chond/C/Mn [Glucosamine Chondroitin Cap] 1 ea PO DAILY 10/05/19 Hydrocodone Bitart/Apap 5-325 [[place] 5/325] 1 - 2 tab PO Q4H PRN PRN 10/05/19 Milk Thistle 150 mg PO BID 10/05/19 Morphine [Morphine IR] 15 mg PO BID 10/05/19 Sennosides/Docusate Sodium [Dok Plus Tablet] 1 ea PO BID 10/05/19 Ubidecarenone/Vit E Acet [Co Q-10 100 mg Softgel] 1 ea PO DAILY 10/05/19 Apixaban [Eliquis] 5 mg PO BID #60 tab 10/06/19 Enalapril Maleate 10 mg PO BID #0 tab 10/06/19 Hydrochlorothiazide [Hctz] 25 mg PO QDAY #0 10/06/19 Metoprolol Tartrate [Lopressor (beta caitlyn)] 100 mg PO BID #60 tab 10/06/19 The following prescriptions were given: Apixaban [Eliquis] 5 mg PO BID #60 tab Transmission Status: P[facility] to [id number] Metoprolol Tartrate [Lopressor (beta caitlyn)] 100 mg PO BID #60 tab Transmission Status: Pending to [id number] Primary Care Physician: David Malin MD [Primary Care Provider] - Please follow up with your Primary Care Physician in: IN 2 WEEKS Test Results: Test results from this visit will be discussed in further detail at your follow- up appointment, if applicable. Please Follow Up With: Nilay Madden MD When: in 3 weeks for newonset Afib Please Follow Up With: Nasir Lopez MD When: for Right TKR as scheduled
--- NOTE | 2019-10-06 10:57 | DS.PCM_ITS ---
Discharge Date and Diagnosis Date of Admission: 10/05/19 Date of Discharge: 10/06/19 - Primary Discharge Diagnosis Active and Suspected Problems (Last Reviewed 07/23/19 @ 08:42 by Asha Childers) New onset a-fib (Acute) Near syncope (Acute) - Secondary Discharge Diagnosis Chronic Problems (Last Reviewed 07/23/19 @ 08:42 by Asha Childers) High cholesterol (Chronic) Essential hypertension (Chronic) Valvular heart disease (Chronic) Premature atrial contractions (Chronic) Type 2 diabetes mellitus (Chronic) Nonrheumatic aortic (valve) insufficiency (Chronic) Nonrheumatic mitral valve regurgitation (Chronic) Premature ventricular contraction (Chronic) Hospital Course and Treatment Summary of Care Provided: [] The patient is a 74 year old M with history of hypertension, valvular heart disease mild to moderate MR came to ER with near syncope and was found to be A. fib. Patient had right TKR on 10/01/[address] Nasir Lopez. In the morning today he took 2 oxycodone tablets and went to take a shower before physical therapy. He felt dizzy lightheaded in the shower but did not pass out. Denies any chest pain or palpitation. No shortness of breath. In ED, EKG shows atrial fibrillation at 88 bpm. Previous EKG in August 2019 was normal sinus rhythm. Denies any previous history of A. fib. Basic labs in the ER shows leukocytosis 15,000, K3.6. BUN/creatinine 20/1.31. Glucose 180. First troponin negative Chest CT was done for concern of PE but was negative. Chronic interstitial changes found in both lung chapa without a superimposed infiltrate or effusion. Evidence of chronic bronchitis. 1. Near syncope probably related to new onset A. fib: Patient is being admitted in PCU for further work-up. Serial troponin enzymes. 2D echo ordered. Patient denies any previous history of PR, arrhythmia or stroke. 10/06/2019: Resolved. 2D echo was done on 10/05/2019 Normal LV size. Left ventricular systolic function is normal. The estimated ejection fraction is 60 %. Pulmonary artery systolic pressure is 35 mmHg. The left atrium is moderately enlarged. Unable to assess diastolic dysfunction due to arrhythmia. Compared to prior study, there is no significant change. 2. New onset A. fib with RVR: Patient came to ER with heart rate 115/min. Currently it is controlled, heart rate in 90s. Started on metoprolol 50 mg twice daily, titrate up the dose to control RVR. Patient on atenolol 50 mg twice daily at home. IV fluid Ringer lactate 100 mils per hour for 1 L. Magnesium is normal. /: Patient converted to normal sinus rhythm overnight. Dose of metoprolol was increased to 100 mg twice daily yesterday. Currently normal sinus rhythm. Heart rate is 67. 3. Hypertension: Continue amlodipine, HCTZ and enalapril. She is on enalapril 20 mg twice daily, HCTZ 25 mg daily and amlodipine 10 mg daily. Patient blood pressure is controlled 120/59. I think he might have near syncope secondary to low blood pressure at home. Dose of enalapril decreased to 10 mg twice daily with holding parameters. Fasting profile shows LDL 53, HDL 39, TG 76. 4. Mitral regurgitation: Patient had echo in January 2017 reported as EF 60% with no regional wall motion abnormality. Moderate to severe LAE, right atrium mildly enlarged. 1+ mitral regurgitation with moderate mitral annular calcification. Moderate TR, RVSP 42 Hg. Mild AR. Patient had exercise EKG stress test done on January 2017 reported as technically inadequate. No obvious ECG changes. Occasional PVCs. Repeat echo ordered. Discussed with Dr. Madden, his primary barley steeper. 5. Diabetes mellitus type 2: Glucose 180. Accu-Cheks before meals and at bedtime and cover with Humalog sliding scale continue metformin. Glucose is controlled. 6. Recent right TKR: Stable. ER physician consulted Dr. Nasir Lopez. He was seen by Dr. Lopez here. Follow-up with Dr. Nasir Lopez as an outpatient. 7. Chronic cough with chest CT picture of chronic interstitial changes and evidence of chronic bronchitis/emphysema: Patient states he uses 2 years of smoking during teenage. Will Need formal PFT and pulmonary clinic visit. Patient was admitted as inpatient but was discharged because of sooner recovery than expected. Discharge medication reconciliation done. Discharge follow-up instructions completed. Discharge process discussed with the patient and all questions were answered to patient's satisfaction. Follow-up with Dr. Madden in 3 weeks on Eliquis. Prescription given for metoprolol and Eliquis. Follow-up with pulmonary clinic in 2 to 3 weeks for formal PFT. Total time spent, exact 35 minutes on discharge meds reconciliation, exam ination, review of imaging and blood test and discussion with the patient on follow-up instructions. Subjective: Seen and examined. Patient does not have chest complaint including palpitation, shortness of breath or chest pain. Patient still gets right knee pain after recent TKR on walking. Complain of pain 5/10 at rest. Working with physical therapist. - Physical Exam Vitals/I&O's: Vital Signs Temp Pulse Resp BP Pulse Ox 98.1 F 67 18 120/59 L 96 10/06/19 05:30 10/06/19 09:31 10/06/19 05:30 10/06/19 09:31 10/06/19 08:30 Oxygen Delivery Method Room Air Weight: 192 lb Body Mass Index (BMI) 27.5 Intake and Output for Last 24 Hours 10/04/19 10/05/19 10/06/19 23:59 23:59 23:59 Intake Total 1442.5 / 1642.5 1753.33 / 1753.33 Output Total 250 / 250 Balance 1442.5 / 1392.5 1503.33 / 1503.33 General: Alert, Oriented x3, Cooperative HEENT: Atraumatic, PERRLA, EOMI, Normocephalic Neck: Supple, No JVD, Negative Carotid Bruits Lungs: Clear to auscultation, Normal air movement, No rhonchi, No wheeze, No ra les Cardiovascular: Regular rate, Regular Rhythm, Normal S1, Normal S2, No murmurs, - - Converted to normal sinus rhythm last night. Abdomen: Bowel Sounds Present, Soft, Non Tender, Non-Distended Extremities: No edema, Capillary Refill Less than 3 Seconds Skin: No rashes, No breakdown Musculoskeletal: No Tenderness to Palpation of Joints or Extremities, Arthritic Changes - Status post right TKR Neurological: Cranial nerves II-XII grossly intact, Deep Tendon Reflexes 2+/4 and Symmetrical, Neuro grossly intact Psych/Mental Status: Normal Affect, Appropriate Microbiology Past 72 Hours 10/05/19 12:27 Mucosa - Nose Rapid RSV (DFA) - Final 10/05/19 12:27 Mucosa - Nose Influenza Types A,B Direct FA (REJI) - Final Laboratory Results 10/05/19 09:00: Magnesium 1.9 10/05/19 12:30: Troponin I < 0.015 10/05/19 15:30: Troponin I < 0.015 10/05/19 16:31: POC Glucose 118 H 10/05/19 20:37: POC Glucose 135 H 10/06/19 06:16: WBC 10.8, RBC 3.11 L, Hgb 10.3 L, Hct 32.0 L, MCV 102.9 H, MCH 33.1 H, MCHC 32.2, RDW Std Deviation 49.1 H, RDW Coeff of Victorina 13.2, Plt Count 200, MPV 11.5, Immature Gran % (Auto) 0.600, Neut % (Auto) 72.0 H, Lymph % (Auto) 13.6 L, Garvin % (Auto) 10.3 H, Eos % (Auto) 3.1, Baso % (Auto) 0.4, Absolute Neuts (auto) 7.8 H, Absolute Lymphs (auto) 1.46, Nucleated RBC % 0 10/06/19 06:16: Sodium 138, Potassium 3.7, Chloride 105, Carbon Dioxide 27.0, Anion Gap 6, BUN 16, Creatinine 0.92, Estim Creat Clear Calc 70.53, Est GFR (MDRD) Af Amer 103, Est GFR (MDRD) Non-Af 85, BUN/Creatinine Ratio 17.4, Glucose 108 H, Calcium 8.7, Triglycerides 76, Cholesterol 107, LDL Cholesterol 53, VLDL Cholesterol 15, HDL Cholesterol 39 L, TSH 1.07 10/06/19 06:53: POC Glucose 99 Current Medications Acetaminophen (Tylenol) 650 mg PO Q6H PRN PRN PRN Reason: Pain Score 1-3/Temp > 100.7 F Allopurinol (Zyloprim) 300 mg PO DAILY [facility] Last Admin: 10/06/19 10:43 Dose: 300 mg Documented by: Amlodipine Besylate (Norvasc) 10 mg PO DAILY [facility] Last Admin: 10/06/19 09:30 Dose: 10 mg Documented by: Apixaban (Eliquis) 5 mg PO BID [facility] Last Admin: 10/06/19 10:43 Dose: 5 mg Documented by: Dextrose (D50w Syringe) 0 gm IV X1 PRN; Protocol PRN Reason: Hypoglycemia Glucagon () 1 mg IM .X1 PRN PRN Reason: Hypoglycemia Guaifenesin (Robitussin) 20 ml PO Q4H PRN PRN PRN Reason: COUGH Hydrochlorothiazide (Hctz) 25 mg PO DAILY [facility] Last Admin: 10/06/19 09:30 Dose: 25 mg Documented by: Sodium Chloride () 250 mls @ 15 mls/hr IV .[id number] PRN PRN Reason: Saline Flush Sodium Chloride () 250 mls @ 15 mls/hr IV .[id number] PRN PRN Reason: Additional IVPB Infusion Lactated Ringer's () 1,000 mls @ 100 mls/hr IV .Q10H [facility] Last Admin: 10/06/19 09:43 Dose: 100 mls/hr Documented by: Insulin Human Lispro (Humalog Kwikpen (Bkc)) 0 unit [place] [facility]; Protocol Last Admin: 10/06/19 06:59 Dose: Not Given Documented by: Lisinopril (Zestril) 10 mg PO BID [facility] Last Admin: 10/06/19 09:31 Dose: 10 mg Documented by: Metoprolol Tartrate (Lopressor (Beta Mike)) 5 mg IV Q6 PRN PRN Reason: HR>120/m Metoprolol Tartrate (Lopressor (Beta Mike)) 100 mg PO BID [facility] Last Admin: 10/06/19 09:31 Dose: 100 mg Documented by: Morphine Sulfate () 2 mg IV Q3H PRN PRN PRN Reason: Pain Score 6-10/10 Morphine Sulfate (Ms Contin) 15 mg PO BID [facility] Last Admin: 10/06/19 09:30 Dose: 15 mg Documented by: Nitroglycerin (Nitrostat) 0.4 mg SUBLINGUAL Q5M PRN PRN Reason: CARDIAC/CHEST PAIN Ondansetron HCl (Zofran) 4 mg IV Q8H PRN PRN PRN Reason: NAUSEA/VOMITING Oxycodone HCl (Oxyir) 5 mg PO Q4H PRN PRN PRN Reason: Pain Score 4-5/10 Last Admin: 10/05/19 15:56 Dose: 5 mg Documented by: Pantoprazole Sodium (Protonix) 20 mg PO DAILY [facility] Last Admin: 10/06/19 09:31 Dose: 20 mg Documented by: Psyllium Hydrophilic Mucilloid (Metamucil) 1 packet PO DAILY PRN PRN PRN Reason: Constipation Senna/Docusate Sodium (Senokot-S, Divya-Colace) 2 tablet PO BID [facility] Last Admin: 10/06/19 09:30 Dose: 2 tablet Documented by: Sodium Chloride () 10 - 40 ml IV UD PRN PRN Reason: SALINE FLUSH Throat Lozenges (Cepacol Sore Throat Lozenge) 1 lozenge MUCOUS MEM Q2H PRN PRN PRN Reason: Sore Throat/Cough Discharge Activity: May Not Drive - Recent TKR Weight Bearing Status: Weight bearing as tolerated Call your doctor if you observe: Fever of 101 or Higher, Coldness, Increased Pain, Numbness or Tingling, Change in Color, Inability to urinate, Inability to have a bowel movement, Shortness of breath, Fainting spells, Swelling in the ankles, Chest pain, Prolonged hiccoughing, Increased palpitations (irregular heartbeat), Calf discomfort, Uncontrolled pain Home Medications: Medications to take at Discharge allopurinol 300 mg tablet 300 mg PO QDAY 03/01/18 metformin 500 mg tablet 500 mg PO BID 03/01/18 gbgjxyqi-trdpzwy-fez-iron 3 mg-folic 200 mcg-phytosterol 400 mg tablet 1 tab PO QDAY tab 03/01/18 Amlodipine Besylate 10 mg PO DAILY 10/05/19 Cholestrol Essential 1 tab PO BID 10/05/19 Esomeprazole Mag Trihydrate [Nexium] 20 mg PO DAILY 10/05/19 Glucos Sul 2Kcl/MSM/Chond/C/Mn [Glucosamine Chondroitin Cap] 1 ea PO DAILY 10/05/19 Hydrocodone Bitart/Apap 5-325 [[place] 5/325] 1 - 2 tab PO Q4H PRN PRN 10/05/19 Milk Thistle 150 mg PO BID 10/05/19 Morphine [Morphine IR] 15 mg PO BID 10/05/19 Sennosides/Docusate Sodium [Dok Plus Tablet] 1 ea PO BID 10/05/19 Ubidecarenone/Vit E Acet [Co Q-10 100 mg Softgel] 1 ea PO DAILY 10/05/19 Apixaban [Eliquis] 5 mg PO BID #60 tab 10/06/19 Enalapril Maleate 10 mg PO BID #0 tab 10/06/19 Hydrochlorothiazide [Hctz] 25 mg PO QDAY #0 10/06/19 Metoprolol Tartrate [Lopressor (beta mike)] 100 mg PO BID #60 tab 10/06/19 Following Prescrptions Were Given to Patient: Apixaban [Eliquis] 5 mg PO BID #60 tab Transmission Status: [facility] by [id number] Metoprolol Tartrate [Lopressor (beta mike)] 100 mg PO BID #60 tab Transmission Status: Received by [id number] Primary Care Physician: David Malin MD [Primary Care Provider] - Please follow up with your Primary Care Physician in: IN 2 WEEKS Please Follow Up With: Nilay Madden MD When: in 3 weeks for newonset Afib Please Follow Up With: Nasir Lopez MD When: for Right TKR as scheduled Medical Necessity - Tobacco Use Smoking Status: Former smoker Meaningful Use Info Meaningful Use Diagnoses (Choose all that apply): None applicable Code Visit Inpatient E&M: 10477 Disch Hosp
[2019-10-06 11:21] LABS: Bedside Glucose 124 mg/dL (70-110)
--- NOTE | 2019-10-06 11:48 | CM.UR ---
Spoke with [facility] pharmacy. Eliquis is $50 per month. Has commercial insurance as still works. Gave $10 copay per month coupon and explained to . Verb understanding. Renea Almanza RN, CCM.
--- NOTE | 2019-10-06 12:47 | OT ---
EDU PT ON ENERGY CONSERVATOIN/WRK SIMPLIFICATION STRATEGIES. PT AND CG VERB UNDERSTANDING. ISSUED BUE HEP AND VERBALLY REVIEWED EXERCISES
--- NOTE | 2019-10-06 14:16 | NURSING ---
Reviewed and agreed on all charting with Renea Baez RN
== END 2019-10-06 14:15 | disposition home or self-care (01) | DRG 310 ==
LOC: ED 10:48 → PCU 11:21
PROVIDERS: Admitting Provider Internal Medicine; Emergency Provider Emergency Medicine; Family Provider Family Medicine; PCP Family Medicine; Referring Provider Internal Medicine; Visit Provider Internal Medicine
DX: I48.91 Unspecified atrial fibrillation (principal); I10 Essential (primary) hypertension; R55 Syncope and collapse; E11.9 Type 2 diabetes mellitus without complications; Z79.84 Long term (current) use of oral hypoglycemic drugs; I35.1 Nonrheumatic aortic (valve) insufficiency; I34.0 Nonrheumatic mitral (valve) insufficiency; Z96.651 Presence of right artificial knee joint; E78.00 Pure hypercholesterolemia, unspecified; J42 Unspecified chronic bronchitis; J43.9 Emphysema, unspecified; Z87.891 Personal history of nicotine dependence
CPT/HCPCS: 36415; 71275; 80048; 80061; 82962; 83735; 84443; 84484; 85025; 87804; 87807; 93005; 93306; 97162; 97165; 99285; J7030; J7120; Q9967; A4216

== ENCOUNTER → 2019-11-06 10:52 | Outpatient (CLI) | payer BC, MEDICARE, SELFPAY ==
[2019-11-05 14:09] VITALS: BMI 26.6
[2019-11-06 12:48] LABS: Absolute Lymphocyte Count 1.91 X10^3/uL (0.83-4.51); Absolute Neutrophil Count 8.2 X10^3/uL (2.0-7.7); Basophil# 0.05 X10^3/uL; Basophil% 0.4 % (0-1); Eosinophil# 0.33 X10^3/uL; Eosinophils% 2.9 % (0-5); Hematocrit 33.5 % (40-54); Hemoglobin 10.6 g/dL (13.0-16.5); Lymphocyte # 1.91 X10^3/ul (4.0); Lymphocyte % 16.8 % (19-41); Mean Corp Hgb Conc 31.6 g/dL (32-36); Mean Corpuscular Hgb 33.2 pg (27.0-32.0); Mean Platelet Vol. 10.9 fl (6.2-12.0); Monocyte% 7.9 % (0-10); NRBC Flagged by Analyzer 0 % (0-5); Neutrophil # 8.15 X10^3/uL (2.7-7.7); Neutrophil % 71.6 % (47-70); Platelet Count 219 K/mm3 (150-450); RBC Distribution Width CV 13.5 % (11.6-14.6); RBC Distribution Width SD 52.3 fl (35.1-43.9); Red Blood Count 3.19 M/mm3 (4.6-6.2); White Blood Count 11.4 K/mm3 (4.4-11.0)
== END ==
PROVIDERS: PCP Family Medicine; Referring Provider Nurse Practitioner Family; Visit Provider Nurse Practitioner Family
DX: D64.9 Anemia, unspecified (principal); I48.0 Paroxysmal atrial fibrillation; I10 Essential (primary) hypertension; I35.1 Nonrheumatic aortic (valve) insufficiency; E78.5 Hyperlipidemia, unspecified
CPT/HCPCS: 36415; 85025

== ENCOUNTER → 2020-10-01 07:46 | Outpatient (CLI) | payer BC, SELFPAY ==
[2020-07-11 09:16] VITALS: BMI 28.4
[2020-10-01 09:30] LABS: Absolute Lymphocyte Count 1.93 X10^3/uL (0.83-4.51); Absolute Neutrophil Count 5.4 X10^3/uL (2.0-7.7); Basophil# 0.04 X10^3/uL; Basophil% 0.5 % (0-1); Eosinophil# 0.17 X10^3/uL; Eosinophils% 2.1 % (0-5); Hematocrit 44.7 % (40-54); Hemoglobin 14.4 g/dL (13.0-16.5); Lymphocyte # 1.93 X10^3/ul (4.0); Lymphocyte % 23.4 % (19-41); Mean Corp Hgb Conc 32.2 g/dL (32-36); Mean Corpuscular Hgb 34.9 pg (27.0-32.0); Mean Corpuscular Volume 108.2 fL (80-94); Mean Platelet Vol. 10.8 fl (6.2-12.0); Monocyte# 0.69 X10^3/uL; Monocyte% 8.4 % (0-10); NRBC Flagged by Analyzer 0 % (0-5); Neutrophil % 65.2 % (47-70); Platelet Count 205 K/mm3 (150-450); RBC Distribution Width CV 13.6 % (11.6-14.6); RBC Distribution Width SD 54.1 fl (35.1-43.9); Red Blood Count 4.13 M/mm3 (4.6-6.2); White Blood Count 8.3 K/mm3 (4.4-11.0)
[2020-10-01 09:46] LABS: Hemoglobin A1c 5.7 % (3.8-5.6)
[2020-10-01 09:55] LABS: Vitamin B12 554 pg/mL (211-911)
[2020-10-01 09:58] LABS: ALB/GLOB Ratio 1.1 RATIO (0.9-2.4); AST(SGOT) 21 U/L (15-37); Alanine Aminotransfer ALT/SGPT 23 U/L (16-61); Albumin, Serum 3.7 g/dL (3.2-5.0); Alkaline Phosphatase 136 U/L (45-117); Anion Gap 4 (5-15); BUN 19 mg/dL (7-18); Chloride 104 mmol/L (98-107); Cholesterol 120 mg/dL (200); Creatinine, Serum 1.12 mg/dL (0.70-1.30); EST Glomerular Filtration Rate 68 mL/min (>60); Est Glom Filt Rate - Afr Amer 82 mL/min (>60); Globulin 3.5 g/dL (2.2-4.2); Glucose 116 mg/dL (74-106); High Density Lipoprotein 60 mg/dL; Potassium 3.8 mmol/L (3.5-5.1); Protein, Total 7.2 g/dL (6.4-8.2); Sodium Level 139 mmol/L (136-145); Triglycerides 57 mg/dL; Very Low Density Lipoprotein 11 mg/dL (5-40)
== END ==
PROVIDERS: PCP Family Medicine; Referring Provider Family Medicine; Visit Provider Family Medicine
DX: Z00.00 Encounter for general adult medical examination without abnormal findings (principal); E11.9 Type 2 diabetes mellitus without complications; I10 Essential (primary) hypertension; E78.00 Pure hypercholesterolemia, unspecified; D51.0 Vitamin B12 deficiency anemia due to intrinsic factor deficiency; E53.8 Deficiency of other specified B group vitamins
CPT/HCPCS: 36415; 80053; 80061; 82607; 83036; 85025

== ENCOUNTER → 2021-04-10 08:20 | Outpatient (CLI) | payer BC, SELFPAY ==
[2021-01-07 08:30] VITALS: BMI 28.5
== END ==
PROVIDERS: PCP Family Medicine; Referring Provider Family Medicine; Visit Provider Family Medicine
DX: E11.9 Type 2 diabetes mellitus without complications (principal); I10 Essential (primary) hypertension; E78.70 Disorder of bile acid and cholesterol metabolism, unspecified

== ENCOUNTER 2021-04-27 09:18 | Inpatient (IN) | payer BC, MEDICARE, SELFPAY ==
[2021-01-07 08:30] VITALS: BMI 28.5
--- NOTE | 2021-04-10 08:37 | RAD_ITS ---
STUDY: X-RAY CHEST REASON FOR EXAM: Male, 76 years old. Preop TECHNIQUE: PA and lateral views of the chest. COMPARISON: Comparison is made with prior study dated 08/03/2019. FINDINGS: There is hyperinflation of the lungs consistent with chronic obstructive lung disease (COPD). There is no demonstrated pleural abnormality. Normal size heart. Normal mediastinum and trisha. Normal visualized pulmonary arteries. There is atherosclerotic calcification of the aortic arch with tortuosity. There are diffuse degenerative changes of the visualized thoracic spine. Normal visualized ribs, clavicles, and shoulders. There is no demonstrated abnormality of the visualized soft tissue structures of the upper abdomen. RAD/Chest PA and Lateral IMPRESSION: Hyperinflation. Stable mild increased markings at the lung bases suggestive of linear scarring. Electronically Signed: Luigi López MD at 15:17 EDT , Service support ,
--- NOTE | 2021-04-10 08:37 | EKG12_ITS ---
Test Reason : PREOP Blood Pressure : / mmHG Vent. Rate : 103 BPM Atrial Rate : 120 BPM P-R Int : 000 ms QRS Dur : 076 ms QT Int : 326 ms P-R-T Axes : 000 -07 003 degrees QTc Int : 427 ms Atrial fibrillation with premature ventricular or aberrantly conducted complexes Abnormal ECG Confirmed by ANAND KUO, CHARLY ([id number]), editor city VIJAYA WILSON ([id number]) on 04/13/2021 12:45:49 PM Referred By: Nasir Lopez Confirmed By:CHARLY MICHEL MD
[2021-04-10 09:23] LABS: Absolute Lymphocyte Count 1.93 X10^3/uL (0.83-4.51); Absolute Neutrophil Count 4.9 X10^3/uL (2.0-7.7); Basophil# 0.04 X10^3/uL; Basophil% 0.5 % (0-1); Eosinophil# 0.12 X10^3/uL; Eosinophils% 1.6 % (0-5); Hematocrit 44.4 % (40-54); Hemoglobin 14.8 g/dL (13.0-16.5); Lymphocyte # 1.93 X10^3/ul (0.83-4.51); Lymphocyte % 25.2 % (19-41); Mean Corp Hgb Conc 33.3 g/dL (32-36); Mean Corpuscular Hgb 35.4 pg (27.0-32.0); Mean Corpuscular Volume 106.2 fL (80-94); Mean Platelet Vol. 10.8 fl (6.2-12.0); Monocyte# 0.65 X10^3/uL; Monocyte% 8.5 % (0-10); NRBC Flagged by Analyzer 0 % (0-5); Neutrophil % 63.9 % (47-70); Platelet Count 201 K/mm3 (150-450); RBC Distribution Width CV 13.1 % (11.6-14.6); RBC Distribution Width SD 51.9 fl (35.1-43.9); Red Blood Count 4.18 M/mm3 (4.6-6.2); White Blood Count 7.7 K/mm3 (4.4-11.0)
[2021-04-10 09:40] LABS: International Normalized Ratio 1.2; Prothrombin Time (Protime)PT. 14.3 SECONDS (11.7-14.9)
[2021-04-10 09:41] LABS: Partial Thromboplast Time 29.1 Seconds (24.1-36.2)
[2021-04-10 10:01] LABS: ALB/GLOB Ratio 1.1 RATIO (0.9-2.4); AST(SGOT) 20 U/L (15-37); Alanine Aminotransfer ALT/SGPT 21 U/L (16-61); Albumin, Serum 3.8 g/dL (3.2-5.0); Alkaline Phosphatase 111 U/L (45-117); Anion Gap 8 (5-15); BUN 24 mg/dL (7-18); BUN/Creat Ratio 19.7 RATIO (10-20); Calcium,Total 9.1 mg/dL (8.5-10.1); Chloride 102 mmol/L (98-107); Cholesterol 115 mg/dL (200); Creatinine, Serum 1.22 mg/dL (0.70-1.30); EST Glomerular Filtration Rate 61 mL/min (>60); Est Glom Filt Rate - Afr Amer 74 mL/min (>60); Globulin 3.4 g/dL (2.2-4.2); Glucose 125 mg/dL (74-106); High Density Lipoprotein 58 mg/dL; Potassium 4.1 mmol/L (3.5-5.1); Protein, Total 7.2 g/dL (6.4-8.2); Sodium Level 139 mmol/L (136-145); Triglycerides 50 mg/dL; Very Low Density Lipoprotein 10 mg/dL (5-40)
[2021-04-10 10:02] LABS: AST(SGOT) 17 U/L (15-37); Alanine Aminotransfer ALT/SGPT 20 U/L (16-61); Albumin, Serum 3.8 g/dL (3.2-5.0); Alkaline Phosphatase 110 U/L (45-117); Globulin 3.4 g/dL (2.2-4.2); Magnesium 1.4 mg/dL (1.6-2.6); Protein, Total 7.2 g/dL (6.4-8.2)
[2021-04-10 11:33] LABS: Hemoglobin A1c 5.9 % (3.8-5.6)
[2021-04-27] VITALS (27 sets, daily range): BP systolic 69–129; BP diastolic 43–80; PULSE 54–110; RESP 14–18; TEMP 36–36.6; O2SAT 93–100; BMI 36.2
--- NOTE | 2021-04-27 | HIP_PTH ---
PATIENT: LAURA VENTURA THOMPSONACCT #:[id number] LOC: MS3 U#:[id number] AGE/SX: 76/M ROOM: [facility] RE04/29/[address]: Dr. Valentino Mcrae DO : 1945 BED: 1 DIS: 04/30/2021 SPEC #: [id number] RECD: 04/27/21 14:58 STATUS: BREN REQ #: [id number] DIONTE: 04/27/21 00:[address]: Nasir Lopez DEPT: SURGICAL PATHOLOGY RECD BY: Fausto Cook ENTERED: 04/28/21 08:45 SP TYPE: TOTAL HIP OTHR DR: MD Dr. Debra Padron MD Dr. Christopher Ranney, MD Dr. Mary Catherine Sementi, MD Chris Hill Dr., MD Dr. Eric Jopperi, MD Dr. Lynda Medrano Dr., MD Dr. Joseph Agyepong, MD Dr. James Mooney, MD Dr. Kathryn Lee, DO Dr. Samira Tse Dr., MD Dr. Nicholas F Kotsonis, MD Dr. Nhan Luu, MD Dr. Prakash Chand, MD Dr. Paul Nielsen, MD Dr. Raymond Mason, MD Dr. Rodney Miller, MD Barbara Tickton, CHEMISTRY SPECIALIST-C Agata Winn, CHEMISTRY SPECIALIST-Edu Wilson, MONTEZ Ya, MARU-Edu Pena, FELICIANO Barron, FELICIANO Vora Tissues: Hip, NOS Procedures: Decalcification bone/plaque Surgery Specimen Level IV Comments: @ Ordering doctor for DEC edited from to DR.[email or web address] Black by OTONIEL at 04/28/21918 @ Ordering doctor for NIMO edited from to DR.[email or web address] Wayne FREDERICK at 04/28/21918 @ Submitting doctor edited from to DR.[email or web address] Wayne FREDERICK at 04/28/21918 HEADER OPERATION: ERAS, total hip replacement PRE-OP DIAGNOSIS: Left hip severe primary osteoarthritis TISSUE SUBMITTED: Left hip bone MICROSCOPIC DIAGNOSIS Bone and tissue of left hip, total hip replacement: Severe degenerative joint disease. Mild synovial hyperplasia. AM:dong 05/01/2021 MICROSCOPIC DESCRIPTION Slides are reviewed. GROSS DESCRIPTION Received is one container labeled with the patient's name and designated bone left hip. The specimen consists of a femoral head measuring 4.5 x 5 x 5 cm. The portion of femoral neck measures 1.5 cm in length.) Also present at the top of the portion of soft tissue measuring 3 x 2 x 0.3 cm. The articular surface displays prominent osteophyte formation, eburnation and bone erosion. Jewelry Inspector sections are submitted in two cassettes as follows: 1 - entire soft tissue, 2 - femoral head after decalcification. / MICHELLE:dong 04/28/21 TC:5 CPT: 16212, 76038
[2021-04-27] MEDS: Lactated Ringers 1,000 ML 100 ML IV ×2 (06:00→08:45)
[2021-04-27] MEDS: Scopolamine 1mg/72hr Patch 1 PATCH TD (06:35)
[2021-04-27] MEDS: Acetaminophen 500 MG Tablet 1000 MG PO ×3 (06:37→21:17)
[2021-04-27] MEDS: Gabapentin 600 MG Tablet PO (06:37)
[2021-04-27] MEDS: Celecoxib 200 MG Capsule 400 MG PO (06:37)
[2021-04-27 07:01] LABS: Bedside Glucose 120 mg/dL (70-110)
[2021-04-27] MEDS: dexAMETHasone 10 MG/ML Vial IV (08:37)
--- NOTE | 2021-04-27 09:23 | RAD_ITS ---
STUDY: X-RAY - PELVIS AND LEFT HIP REASON FOR EXAM: Male, 76 years old. Post Op -- AP both hips on single adiel/lateral of op hip PACU TECHNIQUE: 2 views of the pelvis and hip. COMPARISON: None. FINDINGS: The patient is status post left total hip replacement. There is good alignment. Healed proximal right femoral fracture with deformity. RAD/Hip Min 2 Views (Portable) IMPRESSION: Status post left total hip replacement. Is the alignment. Postoperative soft tissue changes. Electronically Signed: Luigi López MD at 11:27 EDT , Service support ,
--- NOTE | 2021-04-27 09:42 | PCM.OP.BLANK ---
Problems Associated Problem List Diagnoses (1) Arthritis of left hip: Operative Report Date of Procedure: 04/27/21 Preoperative diagnosis: left hip primary osteoarthritis Postoperative diagnosis: Same Operation: Left total hip replacement surgery Surgeon: Dr. Nasir Lopez MD Tree Topper:Edu Mehta CRNA Second expanded duty dental assistant Sarah spain Anesthesia:spinal Anesthesiologist Dr Wolfe EBL: 900 Complications: None Specimen bone and soft tissue Fluid in 1500 crystalloid Special medications: Vancomycin IV, Tranexamic acid intraincisional washes Indications for surgery : Patient is a 76 -year-old with a long-standing history of left severe hip pain that has failed adequate nonoperative treatment. Due to persistent pain and disability, they decided to proceed with hip replacement surgery. Appropriate informed consent was obtained and signed. Appropriate medical workup was performed preoperatively and patient was deemed safe for surgery by the anesthesia department as well. fleet assistant, LINDEN , was utilized throughout the entire procedure. They were vital in helping with patient positioning, holding of retractors, exposing the tissues adequately for safe completion of the procedure including cutting of the bone, helping hot tar roofer appropriate alignment and sizing of the components, implantation of the components, as well as wound closure, bandage application, and safe patient transfer. Without operating room surgical technician, physician expanded duty dental assistant, surgical time would have been significantly increased, and surgical outcome would have been less optimal. Operative findings: Patient had severe arthritis of the involved hip joint. They underwent a small posterior approach to the hip. We utilized a size [8 press-fit Accolade 2 stem] 127 degree neck angle, a press fit acetabular component size 58 titanium cluster, Trident X3 10? hooded polyethylene liner with a 36 mm inner diameter, a Biolox ceramic femoral head size [36] with a +0 neck length. This reproduced their anatomy nicely. Clinically good leg lengths were noted. Good hip stability through range of motion with no undue pistoning. Standard wound closure in layers, followed by meaghan, followed by Mepilex dressing Details of procedure: Patient was taken to the operating room and transferred to the operating table. Given appropriate anesthetic agent by that department. Patient was then rolled into a lateral decubitus position with the involved painful hip up in the air. Appropriate timeouts had been performed. Hip had been appropriately marked with my initials. Padded anterior and posterior position was utilized. Axillary roll placed. JOLENE hose and SCDs on the nonoperative limb utilized throughout the procedure. Operative lower extremity was prepped padded and draped in the usual orthopedic sterile fashion for the procedure. I injected the pain relieving solution in the standard sterile technique of the soft tissues of the hip carefully. Incision was made curving over the tip of the greater trochanter posteriorly. Full thickness skin flaps are raised down on the fascia hope. Fascia hope was opened in length with our incision. Charnley self-retaining hip retractor was carefully placed by the surgeon. Leg was appropriately rotated and held by the expanded duty dental assistant. Retractor was used to lift the abductors anteriorly to visualize the piriformis tendon and external rotators. Area was infiltrated with pain relieving cocktail. Piriformis tendon and external rotators released off the greater trochanter with the Bovie. Bovie and aqua Mantis were used to control bleeding throughout the procedure. Tagging suture was placed in each of these separately. We then split the tissue superior to the piriformis tendon through capsule and onto the pelvis. Acetabular labrum was also divided. With traction and manipulation arthritic femoral head was dislocated from the acetabulum. Retractors were carefully placed around the femoral neck. Cutting guide was utilized to map out the proposed cut approximately 1 fingerbreadth above the lesser trochanter. This femoral neck cut was carried out with a saw. Arthritic femoral head removed and measured and inspected. Inferior acetabular retractor was placed by the surgeon, held by the expanded duty dental assistant. Bone hook utilized to pull the proximal femur anteriorly. Labrum removed from about the acetabulum a long knife. Tissue removed from the depth of the acetabulum with the Bovie. Arthritic acetabulum was noted. We began reaming with the appropriate sized reamer based on the measurement of the femoral head. Reaming was done with 45? of abduction, 20? of anteversion, reproducing there anatomy. Reaming was done incrementally up to the appropriate size creating a smooth cylindrical acetabulum and was done down to healthy bone. Trial acetabular component 1 millimeters smaller than the largest reamer was utilized with the outrigger device. Appropriate abduction and anteversion confirmed as well as size and position of cup. We irrigated with bulb syringe saline. Appropriate acetabular opponent was opened and hammered into position with the outrigger device, with 45? of abduction and 20 degrees of anteversion. We could see through the hole in the cup it was adequately down onto the bone in the pelvis. Good stability was noted. Trial liner with a 10? denson was appropriately positioned. Any anterior and/ or posterior osteophytes removed with an osteotome, rondure. Acetabular retractors removed. A proximal femoral elevator utilized. Held by the expanded duty dental assistant. We used a sharp awl entering down inside the bone of the proximal femur. Utilized the [employer] cutting osteotome in the proximal lateral greater trochanteric region. The fragment removed. Broaching was then done from the smallest broach, upto the appropriate size. Good stability was confirmed. We then trialed the construct with a standard neck length and appropriate sized femoral head on 127? angle neck. We were happy with the construct. Good stability to flexion, rotation by the expanded duty dental assistant. At this point trials removed. I now placed the appropriate polyethylene acetabular liner into a clean dry previously placed shell. This was hammered into position. Suction device was used to confirm its stability. We now exposed the proximal femur with appropriate retractors in place, held by the expanded duty dental assistant, actual femoral stem was checked, opened, and then hammered into the proximal femur and seated down to a similar position as the trial had. We now again trialed appropriate neck length upon. It was then opened. Now impacted the appropriate sized femoral head, neck construct onto the clean dried trunion. Was noted to be stable. Hip was inspected, and joint was reduced for a final time. Good hip stability and leg lengths noted. We used 2 g of Tranexamic acid wash for greater than 2 minutes. We used irrisept solution for greater than 2 minutes. This was then irrigated with saline and cleaned. Next the remainder of the pain relieving solution was injected carefully throughout the soft tissues of the hip joint. Closure was carried out with a combination of #1 Vicryl, running #2 strata fix in the fascia hope, followed by mid layer #1 Vicryl with #1 strata fix running. Next running 0 strata fix, followed by skin meaghan, Xeroform, Mepilex dressing. We placed JOLENE hose and SCD on the operative leg. Patient awoken from the anesthetic and transferred back to room bed in recovery room in satisfactory condition. Patient will be admitted for pain management, PT, IV antibiotics, medication for DVT prevention. Hospitalist consulted for postoperative medical management. Hopeful discharge to home tomorrow This note was generated with [employer] dictation software. It may contain incorrect words, spelling, and punctuation that were not noted in checking the note before signing.
[2021-04-27 10:11] LABS: Bedside Glucose 132 mg/dL (70-110)
--- NOTE | 2021-04-27 13:41 | PCM.PN.HOSP ---
Documented by User: Steve WIGGINS 04/27/21 13:51 Subjective Subjective Patient is a 76-year-old male comfortably resting in bed status post hip replacement, alert and orient x3. Patient denies any complaints. Denies chest pain, shortness of breath, palpitations, hemoptysis, sputum production, fever, chills, N/V/D. Objective Data Objective Data Vital Signs: Vital Signs Temp Pulse Resp BP Pulse Ox 97.8 F 68 18 101/60 100 04/27/21 12:13 04/27/21 12:13 04/27/21 12:13 04/27/21 12:13 04/27/21 12:13 Oxygen Flow Rate (L/min) 6 Oxygen Delivery Method Simple Mask Weight: 191 lb 12.835 oz Body Mass Index (BMI) 36.2 Intake & Output: Intake and Output for Last 24 Hours 04/25/21 04/26/21 04/27/21 23:59 23:59 23:59 Intake Total 1500 / 1500 Balance 1500 / 1500 Lab / Micro Data Result Diagrams: 04/27/21 18:00 04/10/21 08:23 Labs: Laboratory Results - last 24 hr 04/27/21 06:29: POC Glucose 120 H 04/27/21 10:06: POC Glucose 132 H Micro: Microbiology 04/10/21 08:23 Swab (Method) Nasal Screen MRSA/MSSA - Final 04/10/21 09:00 Interface Orders SARS-CoV-2 Antigen (Rapid) - Final Radiography Diagnostic Testing: Radiology Impression Hip X-Ray 04/27/21 09:23 IMPRESSION: Status post left total hip replacement. Is the alignment. Postoperative soft tissue changes. Electronically Signed: Luigi López MD at 11:27 EDT , Service support , Physical Exam Const alert, oriented x3 and no apparent distress HEENT head/scalp atraumatic and moist oral mucous membranes Head and Scalp: normocephalic Eyes EOMs intact bilaterally and conjunctivae normal Neck no lymphadenopathy, supple and no JVD Resp normal respiratory effort, no retractions, no use of accessory muscles and clear to auscultation bilaterally Cardio regular rate, regular rhythm, no murmurs and no JVD GI normal to inspection, nondistended, normoactive bowel sounds, soft to palpation and non-tender Extremity normal to inspection, full ROM and no clubbing, cyanosis or edema Skin no rashes or lesions noted, no wounds and skin turgor normal Neuro CN's II-XII intact bilaterally Psych affect normal Assessment & Plan Assessment/Plan (1) Essential hypertension: (2) Paroxysmal atrial fibrillation: (3) Type 2 diabetes mellitus: (4) Arthritis of left hip: (5) High cholesterol: PLAN: Patient is a 76-year-old male who presents to the hospital medicine team on consult from orthopedics status post left total hip replacement for left hip primary osteoarthritis. 1) HTN Mildly hypotenisve, verbally instructed nursing staff to hold hydrochlorothiazide, lisinopril and amlodipine. Continue metoprolol. 2) DM2 Stable, hemoglobin A1c 5.9. Continue Metformin. 3) PAF Currently on metoprolol for rate control and Eliquis for anticoagulation. Hold anticoagulation, coordinate with orthopedics to resume. 4) GERD Continue Protonix. 5) left hip osteoarthritis status post left hip replacement Management per orthopedics. DVT Prophylaxis - Eliquis on hold, coordinate with Orthopedics for resumption. Patient seen by Steve Montalvo PA-C, under the supervision of Dr. Mcrae. Documented by User: Dr. Valentino Mcrae DO 04/27/21 18:44 Objective Data Lab / Micro Data Result Diagrams: 04/27/21 18:00 04/10/21 08:23 Charges/Coding Addendum Addendum: Patient was seen and examined independently of Steve Montalvo today, patient underwent a left hip replacement today, his blood pressure was in the 100s systolic just after surgery, later on this afternoon it dropped, he was found lethargic at approximately 5 PM this afternoon and it was noted that his blood pressure was in the 60s systolic. I obtained a hemoglobin on the patient which was 10.8, patient was not tachycardic and he is in atrial fib which is a chronic rhythm for the patient. At the time of this dictation, I have administered IV fluids to him, I have ordered an EKG to make sure that there are no signs of any acute ischemia. This EKG is pending at the time of this dictation. I talked briefly with orthopedic surgery who stated he had approximately 900 cc of blood loss during the surgery-a Cell Saver was not used. On examination he appeared in good health and spirits. Vital signs as documented. Skin warm and dry and without overt rashes. Neck without JVD, neck was supple, trachea midline, thyroid was normal. Lungs clear bilaterally, normal air movement was noted. Heart exam notable for regular rhythm, normal sounds and absence of murmurs, rubs or gallops. Abdomen unremarkable and without evidence of organomegaly, masses, or abdominal aortic enlargement. Bowel sounds are present, abdomen is not distended. Extremities nonedematous, no cyanosis was noted, no clubbing was noted. Neuro: Cranial nerves II through XII are grossly intact, no focal motor deficits were noted, sensation to light touch and pinprick intact, motor exam 5/5 throughout. Psych: Patient is alert and oriented x3, he does not appear anxious or depressed, he does not appear agitated. I am unsure why the patient is hypotensive at this time, I will continue to administer fluids for now and recheck the patient's hemoglobin at 9:00 tonight. If his blood pressure does not improve with fluid administration, he may need to be transferred to ICU for pressor agents. I have reviewed Steve Montalvo's progress note including his medical assessment and plan of care and with the above additions endorse it. Patient's blood pressure medications will be stopped for now. Visit Charges Inpatient E&M: 97[address] [facility] Hosp L3
[2021-04-27] MEDS: Lactated Ringers 1,000 ML 125 ML IV ×2 (14:15→19:56)
[2021-04-27] MEDS: Pantoprazole Sodium 20 MG Tablet PO (14:17)
[2021-04-27 14:30] LABS: Bedside Glucose 150 mg/dL (70-110)
--- NOTE | 2021-04-27 15:30 | NURSING ---
Dizzy when up with therapy. This nurse called in by PT/OT and pt was already sitting in the recliner chair. Pale/mendoza face. Cold wash cloth applied to head and back of neck and applied 2L of o2. Will continue to monitor.
--- NOTE | 2021-04-27 17:40 | NURSING ---
Lab called and are aware of need for H&H.
--- NOTE | 2021-04-27 17:55 | NURSING ---
This nurse in to see pt and pt had his eyes open and was staring straight ahead with a glassy look in his eyes. COMMISSIONS MANAGER came in and was told to get Dr. Mcrae whom was on the floor at the computers. Dr. Mcrae came in. Vitals were being obtained by this nurse and Blood sugar was being done. Dr. Mcrae was told by this nurse EBL was 900cc. Pt was pale and clammy. BS was 227. Sternal rub to awaken pt but kept saying he was tired. BP low, see interventions. Pt was layed down in his chair with feet up and LR bolus started. Pt now more alert and talkative. This nurse is aware that pt has not voided. Despite not feeling urge to void, bladder scanned showed 525cc of retention.
--- NOTE | 2021-04-27 17:59 | NURSING ---
Lab here to get H&H.
[2021-04-27] MEDS: Lactated Ringers 500 ML 999 ML IV ×3 (18:08→19:20)
[2021-04-27 18:11] LABS: Hematocrit 32.7 % (40-54); Hemoglobin 10.8 g/dL (13.0-16.5)
[2021-04-27] MEDS: metFORMIN HCl 500 MG Tablet PO (18:46)
--- NOTE | 2021-04-27 19:13 | NURSING ---
Dr. Mcrae made aware that a total of 1L LR infused as a bolus and bp 89/51, HR 72. Order for another 500cc bolus of LR and transfuse 1 unit PRBC if Hemoglobin below 9 at 2100 today.
--- NOTE | 2021-04-27 19:18 | EKG12_ITS ---
Test Reason : DYSRHYTHMIA Blood Pressure : / mmHG Vent. Rate : 085 BPM Atrial Rate : 102 BPM P-R Int : 000 ms QRS Dur : 076 ms QT Int : 408 ms P-R-T Axes : 000 009 008 degrees QTc Int : 485 ms Atrial fibrillation Prolonged QT Abnormal ECG Confirmed by DOV KUO, ARLEEN ([id number]), medical editor VIJAYA WILSON ([id number]) on 04/29/2021 1:18:36 PM Referred By: Nasir Lopez Confirmed By:ARLEEN MONAE MD
[2021-04-27 21:01] LABS: Hematocrit 31.3 % (40-54); Hemoglobin 10.3 g/dL (13.0-16.5)
[2021-04-27] MEDS: Senna/Docusate Sodium 1 Tablet 2 TABLET PO (21:17)
[2021-04-27 21:30] LABS: Bedside Glucose 227 mg/dL (70-110)
[2021-04-27 23:15] LABS: Bedside Glucose 169 mg/dL (70-110)
[2021-04-28] VITALS (13 sets, daily range): BP systolic 98–111; BP diastolic 54–68; PULSE 72–152; RESP 16–18; TEMP 36.5–37.6; O2SAT 93–98
[2021-04-28] MEDS: Acetaminophen 500 MG Tablet 1000 MG PO ×3 (05:50→20:51)
[2021-04-28] MEDS: Lactated Ringers 1,000 ML 125 ML IV ×2 (05:52→13:30)
[2021-04-28 06:20] LABS: Hematocrit 29.6 % (40-54); Hemoglobin 9.7 g/dL (13.0-16.5); Mean Corp Hgb Conc 32.8 g/dL (32-36); Mean Corpuscular Hgb 35.3 pg (27.0-32.0); Mean Corpuscular Volume 107.6 fL (80-94); Mean Platelet Vol. 10.5 fl (6.2-12.0); Platelet Count 127 K/mm3 (150-450); RBC Distribution Width CV 13.3 % (11.6-14.6); RBC Distribution Width SD 52.6 fl (35.1-43.9); Red Blood Count 2.75 M/mm3 (4.6-6.2); White Blood Count 16.5 K/mm3 (4.4-11.0)
[2021-04-28 06:45] LABS: Anion Gap 5 (5-15); BUN 25 mg/dL (7-18); BUN/Creat Ratio 19.2 RATIO (10-20); Calcium,Total 7.9 mg/dL (8.5-10.1); Chloride 104 mmol/L (98-107); EST Glomerular Filtration Rate 57 mL/min (>60); Est Glom Filt Rate - Afr Amer 69 mL/min (>60); Estimated Creatinine Clearance 34.64 ml/min; Glucose 140 mg/dL (74-106); Potassium 4.4 mmol/L (3.5-5.1); Sodium Level 136 mmol/L (136-145)
[2021-04-28 06:51] LABS: Bedside Glucose 146 mg/dL (70-110)
--- NOTE | 2021-04-28 07:53 | PN.ORTHO_ITS ---
Objective Data Objective Data Patient sitting up in bed eating breakfast. Patient reports he has little or no pain. Patient denies chest pain, shortness of breath, calf pain, nausea vomiting. Patient states he would like to go home, but would like to see how he does with therapy today. Patient has no other complaints at this time. Vital Signs: Vital Signs Temp Pulse Resp BP Pulse Ox 97.7 F L 101 H 16 101/55 L 98 04/28/21 02:10 04/28/21 04:00 04/28/21 02:10 04/28/21 02:10 04/28/21 02:10 Oxygen Flow Rate (L/min) 2 Oxygen Delivery Method Nasal Cannula Weight: 87 kg Body Mass Index (BMI) 36.2 Intake & Output: Intake and Output for Last 24 Hours 04/26/21 04/27/21 04/28/21 23:59 23:59 23:59 Intake Total 4556.18 / 4556.18 981.25 / 981.25 Output Total 625 / 625 Balance 4556.18 / 4231.18 356.25 / 356.25 Lab / Micro Data Result Diagrams: 04/28/21 05:43 04/28/21 05:43 Labs: Laboratory Results - last 24 hr 04/27/21 10:06: POC Glucose 132 H 04/27/21 12:55: POC Glucose 150 H 04/27/21 17:33: POC Glucose 227 H 04/27/21 18:00: Hgb 10.8 L, Hct 32.7 L 04/27/21 18:00: Blood Type A NEGATIVE, Antibody Screen NEGATIVE, Crossmatch See Detail 04/27/21 20:50: Hgb 10.3 L, Hct 31.3 L 04/27/21 23:13: POC Glucose 169 H 04/28/21 05:43: WBC 16.5 H, RBC 2.75 L, Hgb 9.7 L, Hct 29.6 L, MCV 107.6 H, MCH 35.3 H, MCHC 32.8, RDW Std Deviation 52.6 H, RDW Coeff of Victorina 13.3, Plt Count 127 L, MPV 10.5 04/28/21 05:43: Sodium 136, Potassium 4.4, Chloride 104, Carbon Dioxide 27.0, Anion Gap 5, BUN 25 H, Creatinine 1.30, Estim Creat Clear Calc 34.64, Est GFR (MDRD) Af Amer 69, Est GFR (MDRD) Non-Af 57 L, BUN/Creatinine Ratio 19.2, Glucose 140 H, Calcium 7.9 L 04/28/21 06:46: POC Glucose 146 H Micro: Microbiology 04/10/21 08:23 Swab (Method) Nasal Screen MRSA/MSSA - Final 04/10/21 09:00 Interface Orders SARS-CoV-2 Antigen (Rapid) - Final Radiography Diagnostic Testing: Radiology Impression Hip X-Ray 04/27/21 09:23 IMPRESSION: Status post left total hip replacement. Is the alignment. Postoperative soft tissue changes. Electronically Signed: Luigi López MD at 11:27 EDT , Service support , Physical Exam Narrative Dressings clean dry intact. Negative signs and symptoms of DVT. Patient is in no respiratory distress, speaking in full sentences. Patient has good flexion- extension of bilateral knees ankles and feet. Good strong distal posterior tibial dorsalis pedis pulses bilaterally of lower extremities. Patient is afebr ile. Const alert and oriented x3 HEENT Head and Scalp: atraumatic Assessment & Plan Assessment/Plan (1) Status post total hip replacement, left: PLAN: 1. Continue all pain medications as prescribed 2. Continue physical therapy today, weight-bear as tolerated with walker 3. Continue Eliquis as prescribed for postop DVT prophylaxis 4. Encourage incentive spirometry 5. Discharge home today after p.m. therapy and when clear with medicine 6. Shower in 3 days 7. Follow-up as scheduled with Dr. Nasir Lopez
--- NOTE | 2021-04-28 07:59 | PCM.DC ---
Discharge Instructions Follow Up Care Test Results: Test results from this visit will be discussed in further detail at your follow-up appointment, if applicable. Discharge Plan Admission Admit Date/Time: 04/27/21 09:18 Primary Reason for Your Visit: Left total hip replacement Attending Provider: Valentino Mcrae Primary Care Provider: David Malin Consulting Providers: Tyra Ayala ; Debra Good ; Brian Obrien ; Mercedes Dubose ; Jorge Turcios ; Chris rBan ; Pankaj Smith ; Juan Delaney ; Lynda Delaney ; Arnav Rose ; John Paul Maldonado ; Renate Lemus ; Valentino Mcrae ; Samira Hoang ; Jose Antonio Guevara ; Silvestre Taylor ; José Miguel Sibley ; Nilay Cameron ; Lynn Perera CABIN EQUIPMENT SUPERVISOR ; Agata Winn ; Waleska Wilson NP ; Valentino Ya CABIN EQUIPMENT SUPERVISOR ; Ole Pena ; Asha Barron ; Tigist Echeverria Discharge Orders/Prescriptions Prescriptions: New acetaminophen 500 mg Tablet 1,000 mg PO Q8 MDD 3000 MG 7 Days Qty: 42 RF: 0 hydrocodone-acetaminophen 5-325 mg Tablet 2 tab PO Q4H PRN PRN (Reason: Pain Score 4-10) 7 Days Qty: 84 RF: 0 Continued rb-Ri-tqm-deiq-mjgte-gnfascgfg 3-200-400 mg-mcg-mg tablet 1 tab PO QDAY RF: 0 metformin 500 mg tablet 500 mg PO BID RF: 0 allopurinol 300 mg tablet 300 mg PO DAILY PRN PRN (Reason: gout) RF: 0 cyanocobalamin (vitamin B-12) 1,000 mcg tablet 1,000 mcg PO DAILY RF: 0 omeprazole 20 mg tablet,delayed release (DR/EC) 20 mg PO DAILY RF: 0 hydrochlorothiazide 25 mg tablet 25 mg PO DAILY RF: 0 amlodipine 10 mg tablet 10 mg PO DAILY RF: 0 coenzyme [id number] E 1 EACH capsule 1 ea PO DAILY RF: 0 Cholestrol Essential 1 tab PO BID RF: 0 enalapril maleate 20 mg tablet 10 mg PO BID Qty: 0 RF: 0 metoprolol tartrate 100 MG tablet 100 mg PO BID RF: 0 apixaban 5 MG tablet 5 mg PO BID RF: 0 Referrals / Follow Up: David Malin MD [Primary Care Provider] -
[2021-04-28] MEDS: APIXABAN 2.5 MG TABLET PO ×2 (08:15→20:51)
[2021-04-28] MEDS: metFORMIN HCl 500 MG Tablet PO ×2 (08:15→17:01)
[2021-04-28] MEDS: Senna/Docusate Sodium 1 Tablet 2 TABLET PO ×2 (09:14→20:51)
[2021-04-28] MEDS: Metoprolol Tartrate 100 MG Tablet PO ×2 (09:15→20:52)
[2021-04-28] MEDS: Pantoprazole Sodium 20 MG Tablet PO (09:17)
--- NOTE | 2021-04-28 12:02 | PCM.PN.HOSP ---
Documented by User: Steve WIGGINS 04/28/21 12:17 Subjective Subjective Patient is a 76-year-old male comfortably resting in bed, alert to self. Patient is acutely confused on exam with tangential speech, only oriented to self, is unaware of place, time and president. Cannot provide much insight into his current condition or status, although is concerned about returning home and like to be remain admitted due to confusion. Objective Data Objective Data Vital Signs: Vital Signs Temp Pulse Resp BP Pulse Ox 98.9 F 108 H 18 98/68 95 04/28/21 08:06 04/28/21 09:15 04/28/21 08:06 04/28/21 08:06 04/28/21 08:10 Oxygen Flow Rate (L/min) 2 Oxygen Delivery Method Room Air Weight: 191 lb 12.835 oz Body Mass Index (BMI) 36.2 Intake & Output: Intake and Output for Last 24 Hours 04/26/21 04/27/21 04/28/21 23:59 23:59 23:59 Intake Total 4556.18 / 4556.18 981.25 / 981.25 Output Total 625 / 625 Balance 4556.18 / 4231.18 356.25 / 356.25 Lab / Micro Data Result Diagrams: 04/30/21 04:58 04/30/21 04:58 Labs: Laboratory Results - last 24 hr 04/27/21 12:55: POC Glucose 150 H 04/27/21 17:33: POC Glucose 227 H 04/27/21 18:00: Hgb 10.8 L, Hct 32.7 L 04/27/21 18:00: Blood Type A NEGATIVE, Antibody Screen NEGATIVE, Crossmatch See Detail 04/27/21 20:50: Hgb 10.3 L, Hct 31.3 L 04/27/21 23:13: POC Glucose 169 H 04/28/21 05:43: WBC 16.5 H, RBC 2.75 L, Hgb 9.7 L, Hct 29.6 L, MCV 107.6 H, MCH 35.3 H, MCHC 32.8, RDW Std Deviation 52.6 H, RDW Coeff of Victorina 13.3, Plt Count 127 L, MPV 10.5 04/28/21 05:43: Sodium 136, Potassium 4.4, Chloride 104, Carbon Dioxide 27.0, Anion Gap 5, BUN 25 H, Creatinine 1.30, Estim Creat Clear Calc 34.64, Est GFR (MDRD) Af Amer 69, Est GFR (MDRD) Non-Af 57 L, BUN/Creatinine Ratio 19.2, Glucose 140 H, Calcium 7.9 L 04/28/21 06:46: POC Glucose 146 H Micro: Microbiology 04/10/21 08:23 Swab (Method) Nasal Screen MRSA/MSSA - Final 04/10/21 09:00 Interface Orders SARS-CoV-2 Antigen (Rapid) - Final Physical Exam Const alert Orientation / Consciousness: confused and disoriented Exam Limitations: altered mental status HEENT head/scalp atraumatic and moist oral mucous membranes Head and Scalp: normocephalic Eyes EOMs intact bilaterally and conjunctivae normal Neck no lymphadenopathy, supple and no JVD Resp normal respiratory effort, no retractions, no use of accessory muscles and clear to auscultation bilaterally Cardio regular rate, no murmurs and no JVD Rate: tachycardic GI normal to inspection, nondistended, normoactive bowel sounds, soft to palpation and non-tender Extremity normal to inspection, full ROM and no clubbing, cyanosis or edema Skin no rashes or lesions noted, no wounds, skin turgor normal and no jaundice Neuro CN's II-XII intact bilaterally Psych affect normal Assessment & Plan Assessment/Plan (1) Essential hypertension: (2) Paroxysmal atrial fibrillation: (3) Type 2 diabetes mellitus: (4) Arthritis of left hip: (5) Status post total hip replacement, left: PLAN: Patient is a 76-year-old male who presents to the hospital medicine team on consult from orthopedics status post left total hip replacement for left hip primary osteoarthritis. 1) Acute encephalopathy of unclear etiology Patient is acutely confused on presentation this morning which was not present on examination yesterday. Upon obtaining history from patient significant other, patient had a similar episode after a surgery performed in 2019. Patient significant other reports that patient was acutely confused for 10 days after procedure. Patient displays no focal neurological deficits on my exam. Patient not on any sedating medications. Of note, white count is elevated at 16,000. Patient's vital signs are also tachycardic, however patient has atrial fibrillation. Plan: Recommend no discharge at this time, obtain urinalysis and chest x-ray. 2) Hypotension Patient's blood pressure has consistently dipped below 90/60. Currently 98/68 while being infused with lactated Ringer's. Hemoglobin stable. No evidence of an acute bleed. Plan: Continue infusing lactated Ringer's, continue to monitor, hold hydrochlorothiazide, lisinopril and amlodipine, continue metoprolol for PAF. 3) HTN As above. 4) DM2 Stable, hemoglobin A1c 5.9. Continue Metformin. 5) PAF Currently on metoprolol for rate control and Eliquis for anticoagulation. Hold anticoagulation, coordinate with orthopedics to resume. 6) GERD Continue Protonix. 7) left hip osteoarthritis status post left hip replacement Management per orthopedics. DVT Prophylaxis - per orthopedics Patient seen by Steve Montalvo PA-C, under the supervision of Dr. Mcrae. Documented by User: Dr. Valentino Mcrae, 04/30/21 07:48 Objective Data Lab / Micro Data Result Diagrams: 04/30/21 04:58 04/30/21 04:58 Charges/Coding Addendum Addendum: Patient was seen and examined today independently of Steve Montalvo, patient is confused today, the etiology of his confusion is not really understood by this examiner, and may be secondary to medications given yesterday for anesthesia. Patient does not appear to be in any distress but he does know he is in the hospital but he has nonsensical conversation at times. On examination he appeared in no distress. Vital signs as documented. Skin warm and dry and without overt rashes. Neck without JVD, neck was supple, trachea midline, thyroid was normal. Lungs clear bilaterally, normal air movement was noted. Heart exam notable for regular rhythm, normal sounds and absence of murmurs, rubs or gallops. Abdomen unremarkable and without evidence of organomegaly, masses, or abdominal aortic enlargement. Bowel sounds are present, abdomen is not distended. Extremities nonedematous, no cyanosis was noted, no clubbing was noted. Neuro: Cranial nerves II through XII are grossly intact, no focal motor deficits were noted, sensation to light touch and pinprick intact, motor exam 5/5 throughout. Psych: Patient is pleasantly confused, he is not agitated or aggressive. We will continue to observe the patient for any further changes in mental status, I have reviewed Steve Garsia's progress note including his medical assessment and plan of care and endorse it. Visit Charges Inpatient E&M: 18331 Subs Hosp L2
--- NOTE | 2021-04-28 12:05 | CASEMGMT ---
RN CM Face to Face with patient for initial transition planning/care coordination assessment. RN CM introduced self and role at [facility]. Patient lying in bed, alert and slightly confused. Patient willing to participate in assessment and is able to answer all questions appropriately. Care providers, pharmacy, and demographics verified. Patient is confused about discharge disposition. is requesting patient go to SNF at discharge as he will be alone during the day. 's first choice for SNF is [facility], SW updated regarding requests. Patient states he has no further needs or concerns at this time. CM to follow for discharge planning needs that may arise. 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 Patient was independent at home. Transportation: family DME/HHC: Patient has cane, walker, hip kit, grab bars, and built in shower chair. Patient is scheduled for outpatient therapy at [facility]. Currently patient is requiring max assistance of 1. Disposition Plan: TBD, SNF vs HHC vs Outpatient therapy. Sarah PARKS, RN, CM
--- NOTE | 2021-04-28 12:11 | RAD_ITS ---
STUDY: X-RAY CHEST REASON FOR EXAM: Male, 76 years old. Encephalopathy with elevated white count. TECHNIQUE: PA and lateral views of the chest. COMPARISON: 04/10/2021 FINDINGS: The lungs are clear and expanded. There is no demonstrated pleural abnormality. Mild cardiomegaly. Normal mediastinum and trisha. Normal visualized pulmonary arteries. There is atherosclerotic calcification of the aortic arch with tortuosity. There are diffuse degenerative changes of the visualized thoracic spine. There is degenerative osteoarthritis of the bilateral shoulders. There is no demonstrated abnormality of the visualized soft tissue structures of the upper abdomen. RAD/Chest PA and Lateral IMPRESSION: Cardiomegaly without acute pulmonary disease or other major interval change. Electronically Signed: Kobi Mendoza DO at 16:50 EDT Tel [phone], Service support ,
[2021-04-28 12:25] LABS: Bedside Glucose 121 mg/dL (70-110)
[2021-04-28] MEDS: 0.9% Saline Lock 10 ML Syringe IV (14:04)
--- NOTE | 2021-04-28 14:29 | CASEMGMT ---
Social Work Note SW received referral for SNF placement and pt's preferred provider is [facility]. LANI placed a call to Susan with TCU and provided referral. Susan states TCU is able to accept pt and will submit for pre-cert. Pt's Asha requesting to speak to this worker. LANI updated Asha that TCU is able to accept pending pre-cert. LANI spoke with Asha about how pt's surgery was an outpatient scheduled surgery and typically they do get denied SNF as again, it was an outpatient scheduled procedure. LANI did speak with Asha about how pt was max assist today with therapy so pt's insurance should take that into consideration. LANI informed Asha that this worker will not hear from pt's insurance today, hopefully tomorrow. Asha states understanding. Patient was provided a list of SNF providers including quality and resource use data and consistent with the patient?s preferred geographic region, medical needs, and insurance network. Plan: TCU pending pre-cert Sarah Lauren MSW, VETERINARIAN ASSISTANT
[2021-04-28 15:19] LABS: Color, Urine Yellow (Yellow); Glucose, Dipstick Normal (Normal); Ketone-Dipstick Negative (Negative); Leukocyte Esterase-Dipstick 100 /ul (Negative); Nitrite-Dipstick Negative (Negative); Occult Blood-Urine Negative /ul (Negative); Protein-Dipstick Negative (Negative); Specific Gravity, Urine 1.015 (1.002-1.030); Urine Bilirubin Dipstick Negative (Negative); Urine Clarity Clear (Clear); Urine Urobilinogen Normal (Normal)
[2021-04-28 17:16] LABS: Bedside Glucose 119 mg/dL (70-110)
--- NOTE | 2021-04-28 19:50 | NURSING ---
PT setting off bed exit, taking off tele repeatedly, trying to get out of bed without assist, talking about moving furniture. 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 pulled out iv just prior to shift change. pt states he drinks 2 cocktails with rum every night, will let dr know. states he does not need to urinate and is not hungry. bed exit on.
[2021-04-28] MEDS: LORazepam 1 MG Tablet 2 MG PO (20:50)
[2021-04-28 21:21] LABS: Bedside Glucose 119 mg/dL (70-110)
--- NOTE | 2021-04-28 21:27 | NURSING ---
scope patch removed to see if helps confusion and bp
--- NOTE | 2021-04-28 21:57 | NURSING ---
setting off bed exit staff in to assist, assisted with urinal but didnt use; assisted to reposition in bed; pt oriented to self only unable to reorient; bed exit reset
[2021-04-29] VITALS (9 sets, daily range): BP systolic 93–107; BP diastolic 59–78; PULSE 88–117; RESP 16–18; TEMP 36.4–37.1; O2SAT 94–99
--- NOTE | 2021-04-29 00:15 | NURSING ---
pt in bed with eyes closed but is mumbling and has hand motions as if he is texting on a phone. pt removed his gown, polar care and blankets. bed exit on will continue to monitor
[2021-04-29] MEDS: HYDROcodone Bitartrate/Apap 5/325 Tablet PO ×3 (02:15→21:04)
[2021-04-29] MEDS: LORazepam 1 MG Tablet 2 MG PO ×2 (02:15→21:04)
[2021-04-29 05:24] LABS: Hematocrit 25.5 % (40-54); Hemoglobin 8.4 g/dL (13.0-16.5); Mean Corp Hgb Conc 32.9 g/dL (32-36); Mean Corpuscular Hgb 35.6 pg (27.0-32.0); Mean Corpuscular Volume 108.1 fL (80-94); Mean Platelet Vol. 10.5 fl (6.2-12.0); POSITIVE COUNT YES; Platelet Count 116 K/mm3 (150-450); RBC Distribution Width CV 13.7 % (11.6-14.6); RBC Distribution Width SD 54.1 fl (35.1-43.9); Red Blood Count 2.36 M/mm3 (4.6-6.2); White Blood Count 12.5 K/mm3 (4.4-11.0)
[2021-04-29 06:51] LABS: Bedside Glucose 119 mg/dL (70-110)
--- NOTE | 2021-04-29 07:59 | PN.ORTHO_ITS ---
Subjective Subjective Patient is postoperative day #2 from left total hip replacement. He is having postoperative confusion. He had postoperative confusion after previous knee replacement. 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 He does follow simple commands. He does seem comfortable. Objective Data Objective Data Vital Signs: Vital Signs Temp Pulse Resp BP Pulse Ox 98.7 F 88 16 103/68 95 04/29/21 02:31 04/29/21 02:31 04/29/21 02:31 04/29/21 02:31 04/29/21 07:41 Oxygen Flow Rate (L/min) 2 Oxygen Delivery Method Room Air Weight: 87 kg Body Mass Index (BMI) 36.2 Intake & Output: Intake and Output for Last 24 Hours 04/27/21 04/28/21 04/29/21 23:59 23:59 23:59 Intake Total 4556.18 / 4556.18 3182.50 / 3182.50 440 / 440 Output Total 975 / 975 200 / 200 Balance 4556.18 / 4231.18 2207.50 / 2207.50 240 / 240 Lab / Micro Data Result Diagrams: 04/29/21 04:48 04/28/21 05:43 Labs: Laboratory Results - last 24 hr 04/28/21 12:16: POC Glucose 121 H 04/28/21 15:05: Urine Color Yellow, Urine Clarity Clear, Urine pH 5.0, Ur Specific [place] 1.015, Urine Protein Negative, Urine Glucose (UA) Normal, Urine Ketones Negative, Urine Occult Blood Negative, Urine Nitrite Negative, Urine Bilirubin Negative, Urine Urobilinogen Normal, Ur Leukocyte Esterase 100 H 04/28/21 16:58: POC Glucose 119 H 04/28/21 21:10: POC Glucose 119 H 04/29/21 04:48: WBC 12.5 H, RBC 2.36 L, Hgb 8.4 L, Hct 25.5 L, MCV 108.1 H, MCH 35.6 H, MCHC 32.9, RDW Std Deviation 54.1 H, RDW Coeff of Victorina 13.7, Plt Count 116 L, MPV 10.5 04/29/21 06:45: POC Glucose 119 H Micro: Microbiology 04/10/21 08:23 Swab (Method) Nasal Screen MRSA/MSSA - Final 04/10/21 09:00 Interface Orders SARS-CoV-2 Antigen (Rapid) - Final Radiography Diagnostic Testing: Radiology Impression Chest X-Ray 04/28/21 12:11 IMPRESSION: Cardiomegaly without acute pulmonary disease or other major interval change. Electronically Signed: Kobi Mendoza DO at 16:50 EDT Tel [phone], Service support , Physical Exam Narrative Left hip bandages on clean and dry. There are three small spots of dried bloody drainage. They do not contact the borders of the dressing. There is some mild bruising and redness about the bandage. No severe swelling. No obvious calf pain or swelling. Negative Homans' sign. Good active motion toes and ankles on command. Clinically leg lengths are equal without deformity. No obvious pain with hip flexion and rotation. No obvious pain with axial loading of the hip. X-rays AP pelvis AP and lateral of left hip shows a press-fit left total hip replacement in good position without obvious loosening failure or fracture. Right healed femoral fracture noted Laboratory work and vital signs reviewed Notes from hospitalist reviewed Assessment & Plan Assessment/Plan (1) Status post total hip replacement, left: PLAN: His diagnosis and treatment options regarding his left hip replacement discussed with him. We will continue hip dislocation precautions. Pillow between legs when in bed. No hip flexion greater than 90 degrees. Do not cross legs. Continue on Eliquis 2.5 mg twice daily for DVT prevention as well as JOLENE hose and SCDs. Tylenol or [place] for pain. Try to avoid narcotics if possible. Continue incentive spirometer, physical therapy, occupational therapy. DC to ECF when arrangements made due to postoperative confusion (2) Arthritis of left hip: (3) Paroxysmal atrial fibrillation: PLAN: On Eliquis (4) Essential hypertension: PLAN: Pressures have been low postoperatively. Blood pressure medications have been held. Continue further evaluation and management per hospitalist service (5) Type 2 diabetes mellitus: (6) Confusion, postoperative: PLAN: Evaluation and management per hospitalist service (7) Blood loss anemia: PLAN: Patient on Eliquis preoperatively. Blood loss anemia related to surgical procedure and blood thinner use pre and postoperatively. Continue to follow.
[2021-04-29] MEDS: metFORMIN HCl 500 MG Tablet PO ×2 (08:43→16:48)
[2021-04-29] MEDS: Senna/Docusate Sodium 1 Tablet 2 TABLET PO ×2 (09:21→21:04)
[2021-04-29] MEDS: Pantoprazole Sodium 20 MG Tablet PO (09:21)
[2021-04-29] MEDS: Metoprolol Tartrate 100 MG Tablet PO ×2 (09:21→21:05)
[2021-04-29] MEDS: APIXABAN 2.5 MG TABLET PO ×2 (09:21→21:04)
--- NOTE | 2021-04-29 10:18 | CASEMGMT ---
Addendum entered by Sarah Lauren 04/29/21 10:28: SW in to speak with pt and pt's Asha. SW updated Asha that pt was approved for TCU, approval is good for 48 hours. Asha became teary eyed, states she is just trying to process everything. LANI spoke with Asha and offered support. SW informed Asha to let this worker know if she needs anything. Asha states understanding. Original Note: Social Work Note LANI received message from Susan with TCU, pt was approved for TCU. LANI spoke with PA, pt not medically cleared for discharge today. LANI placed a call to Susan with TCU and updated her. Pre-cert is good for 48 hours. SW to continue to follow. Plan: TCU when medically cleared. Pre-cert is good for 48 hours. Sarah Lauren MAPPING SPECIALIST, SR. MEDIA MANAGER
--- NOTE | 2021-04-29 13:18 | PCM.PN.HOSP ---
Documented by User: Steve WIGGINS 04/29/21 13:36 Subjective Subjective Patient is a 76-year-old male who having postoperative confusion. 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 He does follow simple commands. Objective Data Objective Data Vital Signs: Vital Signs Temp Pulse Resp BP Pulse Ox 97.6 F L 100 18 93/67 96 04/29/21 08:46 04/29/21 09:21 04/29/21 08:46 04/29/21 08:46 04/29/21 08:46 Oxygen Flow Rate (L/min) 2 Oxygen Delivery Method Room Air Weight: 191 lb 12.835 oz Body Mass Index (BMI) 36.2 Intake & Output: Intake and Output for Last 24 Hours 04/27/21 04/28/21 04/29/21 23:59 23:59 23:59 Intake Total 4556.18 / 4556.18 3182.50 / 3182.50 440 / 440 Output Total 975 / 975 200 / 200 Balance 4556.18 / 4231.18 2207.50 / 2207.50 240 / 240 Lab / Micro Data Result Diagrams: 04/29/21 04:48 04/28/21 05:43 Labs: Laboratory Results - last 24 hr 04/28/21 15:05: Urine Color Yellow, Urine Clarity Clear, Urine pH 5.0, Ur Specific [place] 1.015, Urine Protein Negative, Urine Glucose (UA) Normal, Urine Ketones Negative, Urine Occult Blood Negative, Urine Nitrite Negative, Urine Bilirubin Negative, Urine Urobilinogen Normal, Ur Leukocyte Esterase 100 H 04/28/21 16:58: POC Glucose 119 H 04/28/21 21:10: POC Glucose 119 H 04/29/21 04:48: WBC 12.5 H, RBC 2.36 L, Hgb 8.4 L, Hct 25.5 L, MCV 108.1 H, MCH 35.6 H, MCHC 32.9, RDW Std Deviation 54.1 H, RDW Coeff of Victorina 13.7, Plt Count 116 L, MPV 10.5 04/29/21 06:45: POC Glucose 119 H Micro: Microbiology 04/10/21 08:23 Swab (Method) Nasal Screen MRSA/MSSA - Final 04/10/21 09:00 Interface Orders SARS-CoV-2 Antigen (Rapid) - Final Radiography Diagnostic Testing: Radiology Impression Chest X-Ray 04/28/21 12:11 IMPRESSION: Cardiomegaly without acute pulmonary disease or other major interval change. Electronically Signed: Kobi Mendoza DO at 16:50 EDT Tel [phone], Service support , Physical Exam Const alert General Appearance: uncooperative Orientation / Consciousness: confused and disoriented HEENT head/scalp atraumatic Head and Scalp: normocephalic Eyes EOMs intact bilaterally and conjunctivae normal Neck no lymphadenopathy, supple and no JVD Resp normal respiratory effort, no retractions, no use of accessory muscles and clear to auscultation bilaterally Cardio regular rate, regular rhythm, no murmurs and no JVD GI normal to inspection, nondistended, normoactive bowel sounds, soft to palpation and non-tender Extremity normal to inspection, full ROM and no clubbing, cyanosis or edema Skin no rashes or lesions noted, no wounds and skin turgor normal Neuro Neuro Narrative: Unable to assess due to patient confusion. Psych Psych Narrative: Unable to assess due to patient confusion. Assessment & Plan Assessment/Plan (1) Essential hypertension: (2) Type 2 diabetes mellitus: (3) Paroxysmal atrial fibrillation: (4) Confusion, postoperative: (5) Blood loss anemia: (6) Status post total hip replacement, left: PLAN: Patient is a 76-year-old male who presents to the hospital medicine team on consult from orthopedics status post left total hip replacement for left hip primary osteoarthritis. Discharge planning; patient can go to TCU when medically cleared, pre-CERT obtained on 04/29, pre-CERT is good for 48 hours. 1) Acute encephalopathy of unclear etiology Patient is suffering from an episode of postoperative confusion, which he has a history of from prior knee surgery in 2019, according to the patient's spouse. Patient significant other reports that patient was acutely confused for 10 days after procedure. Patient was not able to follow simple commands and is only alert to self. Patient's vital signs are stable and patient is afebrile. CBC demonstrates a leukocytosis at 12,500, although this is reduced from yesterday. Chest x-ray does not demonstrate any acute cardiopulmonary process. UA is unremarkable plan: Recommend no discharge at this time, patient can go to TCU to monitor his postoperative confusion when medically stable. 2) Hypotension Stable, currently 93/67. 1 L of LR is infused. Plan: Continue to monitor BMP, continue to hold amlodipine, lisinopril and hydrochlorothiazide. 3) Macocytic anemia Patient's hemoglobin dropped to 8.4, after being at baseline around 10. No evidence of an acute bleed. Patient is on postoperative DVT prophylaxis with Eliquis at 2.5 mg p.o. twice daily, per orthopedics. Estimated blood loss was around 900 cc during total hip replacement. Plan: Transfuse if hemoglobin is below 7, iron and stool studies ordered, continue to monitor CBC. 4) HTN As above. Continue metoprolol. 5) DM2 Stable, hemoglobin A1c 5.9. Continue Metformin. 6) PAF Currently on metoprolol for rate control and Eliquis for anticoagulation. Hold anticoagulation, coordinate with orthopedics to resume. 7) GERD Continue Protonix. 8) left hip osteoarthritis status post left hip replacement Management per orthopedics. DVT Prophylaxis - per orthopedics Patient seen by Steve Montalvo PA-C, under the supervision of Dr. Mcrae. Documented by User: Dr. Valentino Mcrae, 04/29/21 18:25 Objective Data Lab / Micro Data Result Diagrams: 04/29/21 04:48 04/28/21 05:43 Charges/Coding Addendum Addendum: Patient was seen and examined today independently of Steve Montalvo, I talked with his who was in the room at the time of my examination, patient remains confused today, he does not appear to be in any distress, I am unsure why the patient has postop confusion. Patient is afebrile, blood pressure this afternoon was 104/59. On examination he appeared in no distress, he appeared confused. Vital signs as documented. Skin warm and dry and without overt rashes. Neck without JVD, neck was supple, trachea midline, thyroid was normal. Lungs clear bilaterally, normal air movement was noted. Heart exam notable for regular rhythm, normal sounds and absence of murmurs, rubs or gallops. Abdomen unremarkable and without evidence of organomegaly, masses, or abdominal aortic enlargement. Bowel sounds are present, abdomen is not distended. Extremities nonedematous, no cyanosis was noted, no clubbing was noted. Neuro: Cranial nerves II through XII are grossly intact, no focal motor deficits were noted, sensation to light touch and pinprick intact, motor exam 5/5 throughout. Psych: Patient is alert-he is able to answer some questions appropriately but is confused for the most part. I am reluctant to place the patient on any medications that would sedate him at this time, patient's is agreeable to this approach and does not want the patient to be placed on any additional medications unless he is severely agitated. I will continue to observe the patient, I talked with orthopedic surgery about his care today. I have reviewed Steve Montalvo's progress note including his medical assessment and plan of care and endorse it. Visit Charges Inpatient E&M: 24262 Subs Hosp L2
[2021-04-29 14:20] LABS: Iron 14 ug/dL (65-175); Iron Binding Capacity,Total 247 ug/dL (250-450); PERCENT IRON SATURATION 5.7 % (15.0-55.0)
[2021-04-29] MEDS: Acetaminophen 500 MG Tablet 1000 MG PO (14:49)
[2021-04-29 16:55] LABS: Bedside Glucose 114 mg/dL (70-110)
[2021-04-30 01:56] LABS: Bedside Glucose 136 mg/dL (70-110)
[2021-04-30] MEDS: HYDROcodone Bitartrate/Apap 5/325 Tablet PO (05:26)
[2021-04-30 05:28] VITALS: BP 142/92; PULSE 103; RESP 18; TEMP 37; O2SAT 95
[2021-04-30 05:32] LABS: Absolute Lymphocyte Count 1.12 X10^3/uL (0.83-4.51); Absolute Neutrophil Count 7.8 X10^3/uL (2.0-7.7); Basophil# 0.02 X10^3/uL; Basophil% 0.2 % (0-1); Eosinophil# 0.15 X10^3/uL; Eosinophils% 1.5 % (0-5); Hematocrit 25.8 % (40-54); Hemoglobin 8.4 g/dL (13.0-16.5); Lymphocyte # 1.12 X10^3/ul (0.83-4.51); Mean Corp Hgb Conc 32.6 g/dL (32-36); Mean Corpuscular Hgb 35.4 pg (27.0-32.0); Mean Corpuscular Volume 108.9 fL (80-94); Mean Platelet Vol. 10.6 fl (6.2-12.0); Monocyte# 1.04 X10^3/uL; Monocyte% 10.2 % (0-10); NRBC Flagged by Analyzer 0 % (0-5); Neutrophil # 7.83 X10^3/uL (2.7-7.7); Neutrophil % 76.5 % (47-70); Platelet Count 126 K/mm3 (150-450); RBC Distribution Width SD 55.2 fl (35.1-43.9); Red Blood Count 2.37 M/mm3 (4.6-6.2); White Blood Count 10.2 K/mm3 (4.4-11.0)
[2021-04-30 05:46] LABS: Bedside Glucose 106 mg/dL (70-110)
[2021-04-30 05:53] LABS: Anion Gap 5 (5-15); BUN 19 mg/dL (7-18); BUN/Creat Ratio 19.6 RATIO (10-20); Calcium,Total 8.4 mg/dL (8.5-10.1); Chloride 103 mmol/L (98-107); Creatinine, Serum 0.97 mg/dL (0.70-1.30); EST Glomerular Filtration Rate 80 mL/min (>60); Est Glom Filt Rate - Afr Amer 97 mL/min (>60); Estimated Creatinine Clearance 46.43 ml/min; Glucose 108 mg/dL (74-106); Potassium 3.9 mmol/L (3.5-5.1); Sodium Level 138 mmol/L (136-145)
[2021-04-30 07:08] VITALS: O2SAT 94
--- NOTE | 2021-04-30 07:42 | PCM.PN.ORT ---
Objective Data Objective Data Patient sitting up in bed sleeping. Patient easy to awake. 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 Patient then stated that he feels his hip is doing well as he just came in from doing some work for his cookout. Patient at this time has no other complaints. Patient states he is ready for discharge home. Patient denies chest pain, shortness of breath, calf pain, nausea vomiting. Vital Signs: Vital Signs Temp Pulse Resp BP Pulse Ox 98.6 F 103 H 18 142/92 H 95 04/30/21 05:28 04/30/21 05:28 04/30/21 05:28 04/30/21 05:28 04/30/21 05:28 Oxygen Flow Rate (L/min) 2 Oxygen Delivery Method Room Air Weight: 87 kg Body Mass Index (BMI) 36.2 Intake & Output: Intake and Output for Last 24 Hours 04/28/21 04/29/21 04/30/21 23:59 23:59 23:59 Intake Total 3182.50 / 3182.50 840 / 840 Output Total 975 / 975 200 / 200 Balance 2207.50 / 2207.50 640 / 640 Lab / Micro Data Result Diagrams: 04/30/21 04:58 04/30/21 04:58 Labs: Laboratory Results - last 24 hr 04/29/21 04:48: Iron 14 L, TIBC 247 L, Iron Saturation 5.7 L 04/29/21 16:45: POC Glucose 114 H 04/29/21 21:02: POC Glucose 136 H 04/30/21 04:58: WBC 10.2, RBC 2.37 L, Hgb 8.4 L, Hct 25.8 L, MCV 108.9 H, MCH 35.4 H, MCHC 32.6, RDW Std Deviation 55.2 H, RDW Coeff of Victorina 14.0, Plt Count 126 L, MPV 10.6, Immature Gran % (Auto) 0.600, Neut % (Auto) 76.5 H, Lymph % (Auto) 11.0 L, Walsh % (Auto) 10.2 H, Eos % (Auto) 1.5, Baso % (Auto) 0.2, Absolute Neuts (auto) 7.8 H, Absolute Lymphs (auto) 1.12, Nucleated RBC % 0 04/30/21 04:58: Sodium 138, Potassium 3.9, Chloride 103, Carbon Dioxide 30.0, Anion Gap 5, BUN 19 H, Creatinine 0.97, Estim Creat Clear Calc 46.43, Est GFR (MDRD) Af Amer 97, Est GFR (MDRD) Non-Af 80, BUN/Creatinine Ratio 19.6, Glucose 108 H, Calcium 8.4 L 04/30/21 05:37: POC Glucose 106 Micro: Microbiology 04/10/21 08:23 Swab (Method) Nasal Screen MRSA/MSSA - Final 04/10/21 09:00 Interface Orders SARS-CoV-2 Antigen (Rapid) - Final Physical Exam Narrative Patient sitting comfortably up in bed. He is in no respiratory distress, speaking in full sentences. Patient's pulse was 103. Patient is slightly hypertensive vitals are noted in the medical record. Patient's dressing is clean dry intact. Patient is afebrile. Neurovascular is otherwise intact. Const alert Assessment & Plan Assessment/Plan (1) Blood loss anemia: (2) Confusion, postoperative: (3) Status post total hip replacement, left: PLAN: 1. Continue all pain medications as prescribed. 2. Continue physical therapy, weight-bear as tolerated with walker. 3. Continue Eliquis 2.5 mg for postop DVT prophylaxis as directed by medicine 4. Encourage incentive spirometry 5. Patient can be discharged to ECF when cleared by medicine 6. Patient can shower today. 7. Follow-up with Dr. Lopez as scheduled
--- NOTE | 2021-04-30 09:52 | CASEMGMT ---
Addendum entered by Sarah Lauren 04/30/21 15:18: Pt is discharging to TCU today. SW attempted to call pt's Asha (2x), when SW dialed number it stated number can not be completed as dialed. SW spoke with RN. Pt's and daughter was at [facility] earlier today, aware pt will be discharged to TCU today. Original Note: Social Work Note Pt is medically ready for discharge today. LANI placed a call to [facility] with TCU and updated her. Pt will need COVID test. 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
--- NOTE | 2021-04-30 10:36 | PN.HOSP_ITS ---
Documented by User: Waleska Wilson NP, [employer] TECHNICIAN-C 04/30/21 10:47 Subjective Subjective Patient seen and examined. Family at bedside. Family reports patient just fell asleep and has not slept in 48 hours. Patient resting comfortably in bed. Plan for discharge to TCU, stable for discharge from a medical standpoint. Objective Data Objective Data Vital Signs: Vital Signs Temp Pulse Resp BP Pulse Ox 98.6 F 103 H 18 142/92 H 94 04/30/21 05:28 04/30/21 05:04/30/21 05:04/30/21 05:04/30/21 07:08 Oxygen Flow Rate (L/min) 2 Oxygen Delivery Method Room Air Weight: 191 lb 12.835 oz Body Mass Index (BMI) 36.2 Intake & Output: Intake and Output for Last 24 Hours 04/28/21 04/29/21 04/30/21 23:59 23:59 23:59 Intake Total 3182.50 / 3182.50 840 / 840 Output Total 975 / 975 200 / 200 Balance 2207.50 / 2207.50 640 / 640 Lab / Micro Data Result Diagrams: 04/30/21 04:58 04/30/21 04:58 Labs: Laboratory Results - last 24 hr 04/29/21 04:48: Iron 14 L, TIBC 247 L, Iron Saturation 5.7 L 04/29/21 16:45: POC Glucose 114 H 04/29/21 21:02: POC Glucose 136 H 04/30/21 04:58: WBC 10.2, RBC 2.37 L, Hgb 8.4 L, Hct 25.8 L, MCV 108.9 H, MCH 35.4 H, MCHC 32.6, RDW Std Deviation 55.2 H, RDW Coeff of Victor[place] 14.0, Plt Count 126 L, MPV 10.6, Immature Gran % (Auto) 0.600, Neut % (Auto) 76.5 H, Lymph % (Auto) 11.0 L, [place] % (Auto) 10.2 H, Eos % (Auto) 1.5, Baso % (Auto) 0.2, Ab solute Neuts (auto) 7.8 H, Absolute Lymphs (auto) 1.12, Nucleated RBC % 0 04/30/21 04:58: Sodium 138, Potassium 3.9, Chloride 103, Carbon Dioxide 30.0, Anion Gap 5, BUN 19 H, Creatinine 0.97, Estim Creat Clear Calc 46.43, Est GFR (MDRD) Af Amer 97, Est GFR (MDRD) Non-Af 80, BUN/Creatinine Ratio 19.6, Glucose 108 H, Calcium 8.4 L 04/30/21 05:37: POC Glucose 106 Micro: Microbiology 04/10/21 08:23 Swab (Method) Nasal Screen MRSA/MSSA - Final 04/10/21 09:00 Interface Orders SARS-CoV-2 Antigen (Rapid) - Final Physical Exam Const no apparent distress Constitutional Narrative: Resting comfortably. HEENT normocephalic and moist oral mucous membranes Eyes PERRL, EOMs intact bilaterally and conjunctivae normal Neck no lymphadenopathy Resp normal respiratory effort and clear to auscultation bilaterally Cardio regular rate, regular rhythm and no murmurs Peripheral Pulses: pulses 2+ throughout GI normal to inspection, nondistended, normoactive bowel sounds, non-tender and non-distended Extremity normal to inspection Skin no rashes or lesions noted Skin Narrative: Postop dressing intact. Lesions: no lesions Rashes: no rashes Trauma: no lacerations or abrasions Neuro CN's II-XII intact bilaterally, no focal motor deficits, no sensory deficits noted and deep tendon reflexes 2+ bilaterally Psych mental status grossly normal and affect normal Assessment & Plan Assessment/Plan (1) Confusion, postoperative: (2) Status post total hip replacement, left: PLAN: 1. Acute encephalopathy, postoperative confusion-suspect anesthesia related. Patient had similar reaction to anesthesia following knee surgery in 2019, significant other reports 10 days of confusion following procedure. Mental status improving. No evidence of infectious etiology. 2. Left hip osteoarthritis status post total left hip replacement- management and outpatient follow up per surgery. 3. Paroxysmal atrial fibrillation-on Eliquis, metoprolol. 4. Hypertension-continue amlodipine, lisinopril, HCTZ with hold parameters. 5. Type 2 diabetes mellitus-on Metformin. 6. GERD-continue PPI. 7. Macrocytic anemia-stable. DVT prophylaxis-Eliquis This patient was seen by MONTEZ Schwartz under the supervision of Dr. Mcrae. Documented by User: Dr. Valentino Mcrae DO 04/30/21 18:06 Objective Data Lab / Micro Data Result Diagrams: 04/30/21 04:58 04/30/21 04:58 Charges/Coding Addendum Addendum: Patient was seen and examined today independently of Waleska Wilson, he remains confused but his overall mental status appears improved over yesterday. I talked briefly with his who was at the bedside today. Patient appears stable for transfer to an extended care facility for inpatient rehab services at this time. On examination he appeared his stated age, patient has moderate confusion. Vital signs as documented. Skin warm and dry and without overt rashes. Neck without JVD, neck was supple, trachea midline, thyroid was normal. Lungs clear bilaterally, normal air movement was noted. Heart exam notable for regular rhythm, normal sounds and absence of murmurs, rubs or gallops. Abdomen unremarkable and without evidence of organomegaly, masses, or abdominal aortic enlargement. Bowel sounds are present, abdomen is not distended. Extremities nonedematous, no cyanosis was noted, no clubbing was noted. Neuro: Cranial nerves II through XII are grossly intact, no focal motor deficits were noted, sensation to light touch and pinprick intact, motor exam 5/5 throughout. Psych: Patient is alert, he appears to have moderate confusion. Patient appears stable for transfer to TCU at this time for inpatient rehab services. I have reviewed Waleska Wilson's progress note including her medical assessment and plan of care and endorse it.. Visit Charges Inpatient E&M: 76338 Subs Hosp L2
--- NOTE | 2021-04-30 10:40 | TREXTCAR_ITS ---
Diet 04/27/21 14:21 Diet: Consistent Carb - Calorie Controlled Is pt able to select menu?: No How many daily calories?: 1800 calorie Routine Orders/Code Status Routine Lab Work: CBC (in 2 days) and - (fingerstick blood sugars fasting and 4 pm daily, notify phyusician if blood sugar above 180) Code Status: Full Code Wound(s) LEFT HIP: Wound Type: Surgical Incision Therapies Weight Bearing: Weight bearing as tolerated Physical Therapy: Eval and Treat Occupational Therapy: Eval and Treat Problem/Diagnosis (1) Blood loss anemia: Status: Acute (2) Confusion, postoperative: Status: Acute (3) Status post total hip replacement, left: Status: Acute (4) Type 2 diabetes mellitus: Status: Chronic (5) Essential hypertension: Status: Chronic (6) Paroxysmal atrial fibrillation: Status: Chronic Allergies/Procedures Done in Hospital Allergies No Known Allergies Allergy (Verified 01/07/21 08:26) Procedures: - (left hip replacement) Type of Care/Length of Stay Estimated LOS: Convalescent Care Less Than 30 days Type of Care Needed: Skilled Rehab Potential: Good Prognosis: Good Additional Orders/Day of Discharge H&P will serve as current which was dated: 04/08/21 Day of Discharge: 04/30/21 Discharge Plan Admission Admit Date/Time: 04/29/21 13:26 Primary Reason for Your Visit: Left total hip replacement Attending Provider: Valentino Mcrae Primary Care Provider: David Malin Consulting Providers: Valentino Mcrae Instructions Additional Instructions / Restrictions: Patient may shower, remove meaghan on May 09, appointment with Dr. Nasir Lopez in two weeks Discharge Orders/Prescriptions Prescriptions: New acetaminophen 500 mg Tablet 1,000 mg PO Q8 MDD 3000 MG 7 Days Qty: 42 RF: 0 metoprolol tartrate 100 mg Tablet 100 mg PO BID Qty: 1 RF: 0 amlodipine 5 mg Tablet 5 mg PO DAILY Qty: 1 RF: 0 Eliquis 2.5 mg Tablet 2.5 mg PO BID Qty: 1 RF: 0 lisinopril 10 mg tablet 10 mg PO DAILY Qty: 1 RF: 0 hydrocodone-acetaminophen 5-325 mg tablet 1 - 2 tab PO Q6H 7 Days Qty: 10 RF: 0 Continued metformin 500 mg tablet 500 mg PO BID RF: 0 allopurinol 300 mg tablet 300 mg PO DAILY PRN PRN (Reason: gout) RF: 0 cyanocobalamin (vitamin B-12) 1,000 mcg tablet 1,000 mcg PO DAILY RF: 0 omeprazole 20 mg tablet,delayed release (DR/EC) 20 mg PO DAILY RF: 0 metoprolol tartrate 100 MG tablet 100 mg PO BID RF: 0 Discontinued fq-Ts-jwe-fqkj-lanrh-obejeuldd 3-200-400 mg-mcg-mg tablet 1 tab PO QDAY RF: 0 hydrochlorothiazide 25 mg tablet 25 mg PO DAILY RF: 0 amlodipine 10 mg tablet 10 mg PO DAILY RF: 0 coenzyme [id number] E 1 EACH capsule 1 ea PO DAILY RF: 0 Cholestrol Essential 1 tab PO BID RF: 0 enalapril maleate 20 mg tablet 10 mg PO BID Qty: 0 RF: 0 apixaban 5 MG tablet 5 mg PO BID RF: 0 Referrals / Follow Up: David Malin MD [Primary Care Provider] - Nasir Lopez MD [STAFF PHYSICIAN] - See Referral Note ( in two weeks) Disposition Disposition (needs filled in before D/C Order can be placed): Assisted Facility
[2021-04-30 11:28] VITALS: BP 128/84; PULSE 100; RESP 18; TEMP 36.4; O2SAT 98
[2021-04-30 11:55] VITALS: PULSE 100
[2021-04-30] MEDS: Pantoprazole Sodium 20 MG Tablet PO (11:55)
[2021-04-30] MEDS: Senna/Docusate Sodium 1 Tablet 2 TABLET PO (11:55)
[2021-04-30] MEDS: Metoprolol Tartrate 100 MG Tablet PO (11:55)
[2021-04-30] MEDS: Acetaminophen 500 MG Tablet 1000 MG PO (11:56)
[2021-04-30] MEDS: APIXABAN 2.5 MG TABLET PO (11:57)
[2021-04-30] MEDS: Glucerna Shake 120 ML LIQUID PO (12:01)
[2021-04-30] MEDS: amLODIPine 5 MG Tablet PO (12:01)
[2021-04-30] MEDS: metFORMIN HCl 500 MG Tablet PO (12:03)
[2021-04-30 15:16] VITALS: BP 109/69; PULSE 87; RESP 18; TEMP 36.8; O2SAT 98
== END 2021-04-30 15:45 | disposition skilled nursing facility (03) | DRG 983 ==
LOC: SDC 09:55 → MS3 09:55
PROVIDERS: Anesthesiology; Physician Assistant; Admitting Provider Orthopaedic Surgery; PCP Family Medicine; Referring Provider Orthopaedic Surgery; Visit Provider Internal Medicine
PROC: 0SRB0JZ Replacement of Left Hip Joint with Synthetic Substitute, Open Approach (ICD-10-PCS; CPT 27130; principal; 2021-04-27 07:05)
DX: G92 Toxic encephalopathy (principal); T41.45XA Adverse effect of unspecified anesthetic, initial encounter; Y92.239 Unspecified place in hospital as the place of occurrence of the external cause; I95.9 Hypotension, unspecified; M16.12 Unilateral primary osteoarthritis, left hip; D53.9 Nutritional anemia, unspecified; Z20.822 Contact with and (suspected) exposure to COVID-19; I48.0 Paroxysmal atrial fibrillation; E11.9 Type 2 diabetes mellitus without complications; I10 Essential (primary) hypertension; E78.00 Pure hypercholesterolemia, unspecified; M81.0 Age-related osteoporosis without current pathological fracture; M10.9 Gout, unspecified; K21.9 Gastro-esophageal reflux disease without esophagitis; Z79.01 Long term (current) use of anticoagulants; Z79.84 Long term (current) use of oral hypoglycemic drugs; Z79.899 Other long term (current) drug therapy; Z87.891 Personal history of nicotine dependence
CPT/HCPCS: 36415; 71046; 73502; 80048; 80053; 80061; 80076; 81002; 82962; 83036; 83540; 83550; 83735; 85014; 85018; 85025; 85027; 85610; 85730; 86850; 86900; 86901; 86920; 86922; 87077; 87081; 87426; 88305; 88311; 93005; 97110; 97116; 97162; 97166; 97530; 97535; 99251; C1776; C9803; J7050; J7120; A4216; G0463

== ENCOUNTER 2021-04-30 16:00 | Inpatient (IN) | payer BC, MEDICARE, SELFPAY ==
[2021-04-27 12:07] VITALS: BMI 36.2
[2021-04-30 16:14] VITALS: BP 104/74; PULSE 92; RESP 18; TEMP 36.7; O2SAT 97
[2021-04-30 16:17] VITALS: BMI 37.0
[2021-04-30 17:51] LABS: Bedside Glucose 111 mg/dL (70-110)
--- NOTE | 2021-04-30 18:53 | HP.PCM_ITS ---
HPI - General General Date of Admission: 04/30/21 HPI Narrative LAURA VENTURA, is a 76 Male who presents for left total hip replacement. 04/10/2021 EKG atrial fibrillation with premature ventricular contractions or aberrantly conducted complexes. 04/27/2021 Dr. Nasir Lopez performed left total hip replacement. 04/27/2021 Mild hypotension, hold HCTZ, Lisinopril, Amlodipine, continue Metoprolol. Eliquis held for surgery. 04/28/2021 Confused, tangential speech, check UA, check Chest X-ray. WBC 16. Patient confused after previous 2019 knee surgery. 1 liter LR IV fo low blood pressure, only on metoprolol. 04/29/2021 Confusion improved. WBC decreased to 12.5. UA negative, Chest X-ray negative. Blood pressure 93/67. Hemoglobin dropped from 10 to 8.4, transfuse if less than 7. Eliquis 2.5MG twice daily for DVT prophylaxis AND atrial fibrillation. 04/30/2021 Mental status improved. 04/30/2021 Admit to TCU with debility, here for rehabilitation, strengthening, prior to discharge home with . [facility] Medical History Alcohol use Cardiology follow-up encounter Essential hypertension Former smoker Gastric reflux GERD (gastroesophageal reflux disease) Gout History of atrial fibrillation History of echocardiogram History of stress test Nonrheumatic aortic (valve) insufficiency Nonrheumatic mitral valve regurgitation Pernicious anemia Premature atrial contractions Premature ventricular contraction Type 2 diabetes mellitus Valvular heart disease Wears glasses Home Medications metformin 500 mg tablet 500 mg PO BID 03/01/18 [History Last Taken 10/04/19] allopurinol 300 mg tablet 300 mg PO DAILY PRN PRN 04/17/20 [History Last Taken Unknown] cyanocobalamin (vitamin B-12) 1,000 mcg tablet 1,000 mcg PO DAILY 07/11/20 [History Last Taken Unknown] omeprazole 20 mg tablet,delayed release 20 mg PO DAILY 07/11/20 [History Last Taken Unknown] metoprolol tartrate 100 mg PO BID 04/09/21 [History Last Taken Unknown] acetaminophen 1,000 mg PO Q8 7 Days #42 tab MDD 3000 MG 04/28/21 [Rx Last Taken Unknown] amlodipine 5 mg PO DAILY 04/30/21 [History Last Taken Unknown] apixaban [Eliquis] 2.5 mg PO BID 04/30/21 [History Last Taken Unknown] hydrocodone-acetaminophen 1 - 2 tab PO Q6H 04/30/21 [History Last Taken Unknown] lisinopril 10 mg PO DAILY 04/30/21 [History Last Taken Unknown] metoprolol tartrate 100 mg PO BID 04/30/21 [History Last Taken Unknown] Allergy/AdvReac Type Severity Reaction Status Date / Time No Known Allergies Allergy Verified 01/07/21 08:26 Family History Sister Sudden cardiac Surgical History History of hernia repair History of knee surgery Social History (Updated 04/30/21 @ 18:[address] Reji Chew MD) household members: spouse Smoking Status: Former smoker alcohol intake: current details: 3-4 mixed drinks daily ROS Constitutional Constitutional: Denies chills, fever(s) or weight gain ENT HEENT: Denies headache(s), nasal congestion or nasal discharge Cardiovascular Cardiovascular: Denies chest pain or palpitations Respiratory/Chest Respiratory/Chest: Denies cough, excessive phlegm production or shortness of breath with exertion Gastrointestinal Gastrointestinal: Denies abdominal pain, nausea or vomiting Genitourinary Genitourinary: Denies dysuria Musculoskeletal Musculoskeletal: Denies joint pain or joint swelling Integumentary Integumentary: Denies rash or wounds Neurologic Neurologic: Denies focal weakness, numbness or tingling Psychiatric Psychiatric: Reports auditory hallucinations; Denies anxiety, depression, homicidal ideation or suicidal ideation Vital Signs Vital Signs Vital Signs: 04/30/21 16:14 04/30/21 16:36 Temperature 98.1 F Temperature Source Oral Pulse Rate 92 Pulse Rhythm Irregular Pulse Strength Normal (2+) Respiratory Rate 18 Respiratory Effort Normal Non-Labored Respiratory Depth Normal Respiratory Pattern Normal Blood Pressure 104/74 Blood Pressure Mean 84 Blood Pressure Source Monitor Blood Pressure Position Semi-Fowlers Blood Pressure Location Left Arm Pulse Ox 97 Oxygen Delivery Method Room Air Room Air Weight Weight: 88.9 kg Body Mass Index (BMI) 37.0 Physical Exam Const alert and oriented x3 General Appearance: cooperative HEENT normocephalic Eyes PERRL and EOMs intact bilaterally Neck supple, no JVD and no carotid bruits Resp normal respiratory effort, normal air movement and clear to auscultation bilaterally Cardio regular rate and regular rhythm GI normal to inspection, nondistended, normoactive bowel sounds, non-tender and non -distended Extremity normal capillary refill General Extremity: Negative for edema Skin no rashes or lesions noted Skin Narrative: Left hip incision dressed. General Skin Exam: no breakdown Psych affect normal Appearance: appropriate Results Lab / Micro Data Labs: Laboratory Results - last 24 hr 04/30/21 17:15: POC Glucose 111 H Assessment & Plan Assessment/Plan (1) Status post total hip replacement, left: (2) Debility: (3) Osteoarthritis of left hip: (4) Encephalopathy acute: (5) Postoperative anemia: (6) Diabetes mellitus: (7) Gout: (8) Hearing loss: (9) Hypertension: (10) Hyperlipidemia: (11) Osteoporosis: (12) Atrial fibrillation: PLAN: 76 year old male with below past medical history hospitalized for left hip replacement 04/27/[address] Nasir Lopez, complicated by acute encephalopathy, postoperative anemia, admitted to TCU with debility, here for rehabilitation, strengthening, prior to discharge home with . * Debility - PT/OT. * Pain - Tylenol 1000MG Q8H, Oxycodone 2.5MG Q4H pain (4-10). * Bowel - Miralax 17GM daily, Senna/colace 2 tablets twice daily, Dulcolax 10MG daily PRN. * Adult immunization - Administer prevnar 13, pneumovax 23, fluzone, COVID19 vaccine as appropriate. * DVT prophylaxis - Eliquis 2.5mg twice daily x 7 days, then 5mg twice daily. * Gout - Allopurinol 300MG daily. * Hypertension - Metoprolol 100mg twice daily, Lisinopril 10mg daily. * Atrial fibrillation - Metoprolol 100mg twice daily, Eliquis 2.5mg twice daily x 7 days, then 5mg twice daily. * Vitamin B12 deficiency - B12 1000mcg daily. * Diabetes Mellitus II - Metformin 500mg twice daily. * GERD - Pantoprazole 20mg daily. * Encephalopathy - monitor. * Postoperative anemia - monitor H&H, transfuse if hemoglobin less than 7.
[2021-04-30 19:37] VITALS: BP 123/78; PULSE 85
[2021-04-30] MEDS: APIXABAN 2.5 MG TABLET PO (19:37)
[2021-04-30] MEDS: Metoprolol Tartrate 100 MG Tablet PO (19:37)
[2021-04-30] MEDS: Acetaminophen 500 MG Tablet 1000 MG PO (22:04)
[2021-05-01 05:12] VITALS: BP 130/80; PULSE 100; RESP 16; TEMP 37.1; O2SAT 95
[2021-05-01 05:15] VITALS: BP 130/80; PULSE 100
[2021-05-01] MEDS: Acetaminophen 500 MG Tablet 1000 MG PO ×3 (05:15→20:10)
[2021-05-01] MEDS: Metoprolol Tartrate 100 MG Tablet PO ×2 (05:15→17:21)
[2021-05-01] MEDS: Lisinopril 10 MG Tablet PO (05:16)
[2021-05-01] MEDS: Cyanocobalamin 500 MCG Tablet 1000 MCG PO (05:16)
[2021-05-01] MEDS: Pantoprazole Sodium 20 MG Tablet PO (05:16)
[2021-05-01] MEDS: APIXABAN 2.5 MG TABLET PO ×2 (05:17→17:21)
[2021-05-01 05:27] LABS: Absolute Lymphocyte Count 1.37 X10^3/uL (0.83-4.51); Absolute Neutrophil Count 6.5 X10^3/uL (2.0-7.7); Basophil# 0.02 X10^3/uL; Basophil% 0.2 % (0-1); Eosinophil# 0.17 X10^3/uL; Eosinophils% 1.9 % (0-5); Hematocrit 26.9 % (40-54); Hemoglobin 8.8 g/dL (13.0-16.5); Lymphocyte # 1.37 X10^3/ul (0.83-4.51); Lymphocyte % 15.3 % (19-41); Mean Corp Hgb Conc 32.7 g/dL (32-36); Mean Corpuscular Hgb 35.2 pg (27.0-32.0); Mean Corpuscular Volume 107.6 fL (80-94); Mean Platelet Vol. 10.3 fl (6.2-12.0); Monocyte# 0.79 X10^3/uL; Monocyte% 8.8 % (0-10); NRBC Flagged by Analyzer 0 % (0-5); Neutrophil # 6.54 X10^3/uL (2.7-7.7); Neutrophil % 73.1 % (47-70); Platelet Count 161 K/mm3 (150-450); RBC Distribution Width CV 13.5 % (11.6-14.6); RBC Distribution Width SD 53.8 fl (35.1-43.9)
[2021-05-01 05:42] LABS: Anion Gap 7 (5-15); BUN 14 mg/dL (7-18); BUN/Creat Ratio 16.7 RATIO (10-20); Calcium,Total 8.4 mg/dL (8.5-10.1); Chloride 106 mmol/L (98-107); Creatinine, Serum 0.84 mg/dL (0.70-1.30); EST Glomerular Filtration Rate 94 mL/min (>60); Est Glom Filt Rate - Afr Amer 114 mL/min (>60); Estimated Creatinine Clearance 53.61 ml/min; Glucose 116 mg/dL (74-106); Potassium 3.9 mmol/L (3.5-5.1); Sodium Level 141 mmol/L (136-145)
[2021-05-01 06:25] LABS: Bedside Glucose 130 mg/dL (70-110)
[2021-05-01] MEDS: metFORMIN HCl 500 MG Tablet PO ×2 (07:52→17:21)
[2021-05-01] MEDS: Allopurinol 300 MG Tablet PO (07:52)
[2021-05-01] MEDS: Tuberculin,Purif.prot.deriv. 50 TU/ML Vial 0.1 ML ID (10:25)
[2021-05-01] MEDS: Iron Polysaccharide Complex 150 MG CAPSULE PO (10:25)
[2021-05-01 11:16] LABS: Bedside Glucose 106 mg/dL (70-110)
--- NOTE | 2021-05-01 13:02 | CASEMGMT ---
Social Work SW met with pt for initial assessment. SW discussed code status and assisted pt in completing MOLST form. Pt wishes are for DNR, No intubation, no feeling tube. Communication to physician and form placed on chart. SW explained pt [facility] benefit and that NRD is 05/03/21 and continued stay is not guaranteed. Pt plans to return home alone at time of discharge. PERLA Madrigal
[2021-05-01 14:30] VITALS: BP 95/54; PULSE 75; RESP 18; TEMP 36.4; O2SAT 100
[2021-05-01 16:01] LABS: Bedside Glucose 148 mg/dL (70-110)
[2021-05-01 17:21] VITALS: BP 122/81; PULSE 97
[2021-05-01] MEDS: Senna/Docusate Sodium 1 Tablet 2 TABLET PO (17:21)
[2021-05-02 05:47] VITALS: BP 136/84; PULSE 125; RESP 18; O2SAT 95
[2021-05-02] MEDS: Acetaminophen 500 MG Tablet 1000 MG PO ×3 (05:50→20:38)
[2021-05-02 05:51] VITALS: BP 136/84; PULSE 125
[2021-05-02] MEDS: Metoprolol Tartrate 100 MG Tablet PO ×2 (05:51→17:31)
[2021-05-02] MEDS: Cyanocobalamin 500 MCG Tablet 1000 MCG PO (05:51)
[2021-05-02] MEDS: Lisinopril 10 MG Tablet PO (05:51)
[2021-05-02] MEDS: Pantoprazole Sodium 20 MG Tablet PO (05:52)
[2021-05-02] MEDS: APIXABAN 2.5 MG TABLET PO ×2 (05:52→17:30)
[2021-05-02 06:50] LABS: Bedside Glucose 107 mg/dL (70-110)
[2021-05-02] MEDS: Iron Polysaccharide Complex 150 MG CAPSULE PO (08:13)
[2021-05-02] MEDS: metFORMIN HCl 500 MG Tablet PO ×2 (08:13→17:31)
[2021-05-02] MEDS: Allopurinol 300 MG Tablet PO (08:14)
[2021-05-02] MEDS: oxyCODONE 5 MG Tablet 2.5 MG PO (08:17)
--- NOTE | 2021-05-02 12:42 | NURSING ---
pt reporting he not sleeping at night, dr okeefe updated, new order for melatonin. pt updated.
[2021-05-02 16:00] VITALS: BP 104/65; PULSE 109; RESP 16; TEMP 36.9; O2SAT 98
[2021-05-02 16:30] LABS: Bedside Glucose 147 mg/dL (70-110)
[2021-05-02 17:31] VITALS: BP 115/85; PULSE 112
[2021-05-02 17:33] VITALS: BP 115/85; PULSE 112
[2021-05-02] MEDS: MELATONIN 10 MG TABLET PO (20:39)
[2021-05-02 22:00] VITALS: PULSE 100; O2SAT 98
[2021-05-03 05:22] VITALS: BP 130/83; PULSE 120; RESP 18; O2SAT 98
[2021-05-03] MEDS: Cyanocobalamin 500 MCG Tablet 1000 MCG PO (05:23)
[2021-05-03] MEDS: APIXABAN 2.5 MG TABLET PO ×2 (05:23→17:38)
[2021-05-03] MEDS: Senna/Docusate Sodium 1 Tablet 2 TABLET PO (05:23)
[2021-05-03] MEDS: Lisinopril 10 MG Tablet PO (05:23)
[2021-05-03 05:24] VITALS: BP 130/83; PULSE 120
[2021-05-03] MEDS: Metoprolol Tartrate 100 MG Tablet PO ×2 (05:24→17:39)
[2021-05-03] MEDS: Pantoprazole Sodium 20 MG Tablet PO (05:24)
[2021-05-03] MEDS: Acetaminophen 500 MG Tablet 1000 MG PO ×3 (05:24→20:06)
--- NOTE | 2021-05-03 05:32 | NURSING ---
REMOVED SURGICAL MEPILEX FROM LEFT HIP.16 EDGARDO COUNTED. MIN DRAINAGE NOTED TO DRESSING AND MIN BRUISING AND REDNESS TO INCISION AND LT HIP. NON PITTING EDEMA AT THIS TIME. DENIES ANY PAIN. INCISION IS SENAIT AND DOES NOT APPEAR TO BE DRAINING NOW. PT UP SITTING IN RECLINER WITH CALL LIGHT IN REACH. RN AWARE.
--- NOTE | 2021-05-03 05:43 | NURSING ---
PAPER CONTROL CLERK informs this nurse pt would like to have spouse assist w/ shower today. This nurse informed PAPER CONTROL CLERK to relay to pt shower should be completed w/ therapy to maintain safety and hip precautions.
[2021-05-03 06:41] LABS: Bedside Glucose 117 mg/dL (70-110)
[2021-05-03] MEDS: Iron Polysaccharide Complex 150 MG CAPSULE PO (09:24)
[2021-05-03] MEDS: Allopurinol 300 MG Tablet PO (09:24)
[2021-05-03] MEDS: metFORMIN HCl 500 MG Tablet PO ×2 (09:24→17:39)
[2021-05-03 10:00] VITALS: PULSE 89; RESP 18; O2SAT 97
[2021-05-03 13:14] LABS: Absolute Lymphocyte Count 1.68 X10^3/uL (0.83-4.51); Absolute Neutrophil Count 5.8 X10^3/uL (2.0-7.7); Basophil# 0.04 X10^3/uL; Basophil% 0.5 % (0-1); Eosinophil# 0.21 X10^3/uL; Eosinophils% 2.5 % (0-5); Hematocrit 28.1 % (40-54); Hemoglobin 9.2 g/dL (13.0-16.5); Lymphocyte # 1.68 X10^3/ul (0.83-4.51); Lymphocyte % 19.7 % (19-41); Mean Corp Hgb Conc 32.7 g/dL (32-36); Mean Corpuscular Hgb 35.4 pg (27.0-32.0); Mean Corpuscular Volume 108.1 fL (80-94); Mean Platelet Vol. 9.8 fl (6.2-12.0); Monocyte# 0.73 X10^3/uL; Monocyte% 8.6 % (0-10); NRBC Flagged by Analyzer 0 % (0-5); Neutrophil % 68.1 % (47-70); Platelet Count 241 K/mm3 (150-450); RBC Distribution Width CV 13.6 % (11.6-14.6); RBC Distribution Width SD 54.4 fl (35.1-43.9); White Blood Count 8.5 K/mm3 (4.4-11.0)
--- NOTE | 2021-05-03 15:14 | NURSING ---
UPDATED IN ROOM
[2021-05-03 16:00] VITALS: BP 116/72; PULSE 56; RESP 14; TEMP 36.5; O2SAT 99
[2021-05-03 16:26] LABS: Bedside Glucose 118 mg/dL (70-110)
--- NOTE | 2021-05-03 16:59 | NURSING ---
PT HAVING MODERATE DRAINAGE FROM INCISION SITE TO LEFT HIP. ABD APPLIED. RN AWARE
[2021-05-03 17:38] VITALS: PULSE 118
[2021-05-03 17:39] VITALS: BP 116/72; PULSE 118
[2021-05-03] MEDS: MELATONIN 10 MG TABLET PO (20:06)
[2021-05-04 04:44] VITALS: BP 143/72; PULSE 135; RESP 18; O2SAT 98
[2021-05-04] MEDS: Cyanocobalamin 500 MCG Tablet 1000 MCG PO (04:46)
[2021-05-04] MEDS: Acetaminophen 500 MG Tablet 1000 MG PO ×3 (04:46→21:00)
[2021-05-04 04:47] VITALS: BP 143/72; PULSE 135
[2021-05-04] MEDS: APIXABAN 2.5 MG TABLET PO ×2 (04:47→17:54)
[2021-05-04] MEDS: Lisinopril 10 MG Tablet PO (04:47)
[2021-05-04] MEDS: Metoprolol Tartrate 100 MG Tablet PO ×2 (04:47→17:54)
[2021-05-04] MEDS: Pantoprazole Sodium 20 MG Tablet PO (04:47)
[2021-05-04 06:46] LABS: Bedside Glucose 119 mg/dL (70-110)
[2021-05-04] MEDS: Iron Polysaccharide Complex 150 MG CAPSULE PO (08:00)
[2021-05-04] MEDS: metFORMIN HCl 500 MG Tablet PO ×2 (08:00→17:55)
[2021-05-04] MEDS: Allopurinol 300 MG Tablet PO (08:01)
[2021-05-04 11:06] LABS: Bedside Glucose 115 mg/dL (70-110)
--- NOTE | 2021-05-04 13:17 | CASEMGMT ---
Social Work SW received message from nursing that pt is requesting to return home. SW met with pt and discussed discharge plan. Pt would like to be discharged tomorrow 05/05/21 and would like to receive out pt PT from [facility]. Phone call to [facility] and appointment set for 05/06/21 at 8:30. Pt notified and able to make this appointment. Pt has walker and a cane at home. He will be returning home alone with support from his and friends. Team updated on discharge plan and agreeable. Discharge Date: 05/05/21 Discharge Dispostion: Home alone, Outpaitient PT at [facility] PERLA Madrigal
[2021-05-04 14:50] VITALS: BP 135/78; PULSE 110; RESP 18; TEMP 36.4; O2SAT 99
--- NOTE | 2021-05-04 14:59 | CASEMGMT ---
BIMS and PHQ9 interview completed on this date for MDS assessment. PERLA Madrigal
--- NOTE | 2021-05-04 15:24 | PHA.CONS_ITS ---
Progress Note - Pharmacy Subjective: TCU Admission Objective: Allergies No Known Allergies Allergy (Verified 01/07/21 08:26) Current Medications Generic Name Dose Route Start Last Admin Trade Name Tesfayeq PRN Reason Stop Dose Admin Acetaminophen 1,000 mg 04/30/21 22:00 05/04/21 13:23 Acetaminophen 500 Mg Tablet PO 1,000 mg Q8 JONAH Administration Allopurinol 300 mg 05/01/21 08:00 05/04/21 08:01 Allopurinol 300 Mg Tablet PO 300 mg 0800 JONAH Administration Apixaban 2.5 mg 04/30/21 18:00 05/04/21 04:47 Apixaban 2.5 Mg Tablet PO 05/07/21 18:01 2.5 mg BID JONAH Administration Apixaban 5 mg 05/08/21 06:00 Apixaban 5 Mg Tablet PO BID JONAH Bisacodyl 10 mg 04/30/21 19:21 Bisacodyl 5 Mg Tablet PO DAILY PRN Constipation Cyanocobalamin 1,000 mcg 05/01/21 06:00 05/04/21 04:46 Cyanocobalamin 500 Mcg Tablet PO 1,000 mcg DAILY JONAH Administration Lisinopril 10 mg 05/01/21 06:00 05/04/21 04:47 Lisinopril 10 Mg Tablet PO 10 mg DAILY JONAH Administration Melatonin 10 mg 05/02/21 22:00 05/03/21 20:06 Melatonin 10 Mg Tablet PO 10 mg QHS JONAH Administration Metformin HCl 500 mg 05/01/21 08:00 05/04/21 08:00 Metformin Hcl 500 Mg Tablet PO 500 mg BIDCM JONAH Administration Metoprolol Tartrate 100 mg 04/30/21 18:00 05/04/21 04:47 Metoprolol Tartrate 100 Mg Tablet PO 100 mg BID JONAH Administration Oxycodone HCl 2.5 mg 04/30/21 19:21 05/02/21 08:17 Oxycodone 5 Mg Tablet PO 2.5 mg Q4H PRN PRN Administration Pain Score 4-10 Pantoprazole Sodium 20 mg 05/01/21 06:00 05/04/21 04:47 Pantoprazole Sodium 20 Mg Tablet PO 20 mg DAILY JONAH Administration Polyethylene Glycol 17 gm 05/01/21 06:00 05/04/21 04:47 Polyethylene Glycol 3350 17 Gm Packet PO Not Given DAILY [facility] Polysaccharide Iron Complex 150 mg 05/01/21 08:00 05/04/21 08:00 Iron Polysaccharide Complex 150 Mg Capsule PO 150 mg DAILYCM JONAH Administration Senna/Docusate Sodium 2 tablet 05/01/21 06:00 05/04/21 04:47 Senna/Docusate Sodium 1 Tablet PO Not Given BID JONAH Tuberculin PPD 0.1 ml 05/08/21 10:00 Tuberculin,Purif.Prot.Deriv. 50 Tu/Ml Vial ID 05/08/21 10:01 X1 ONE Problem List (Last Reviewed 04/30/21 @ 18:[address] Reji Chew MD) Atrial fibrillation (Acute) Osteoporosis (Acute) Hyperlipidemia (Acute) Hypertension (Chronic) Hearing loss (Acute) Gout (Acute) Diabetes mellitus (Acute) Postoperative anemia (Acute) Encephalopathy acute (Acute) Osteoarthritis of left hip (Acute) Debility (Acute) Status post total hip replacement, left (Acute) Vital Signs Temp Pulse Resp BP Pulse Ox 97.6 F L 110 H 18 135/78 H 99 05/04/21 14:50 05/04/21 14:50 05/04/21 14:50 05/04/21 14:50 05/04/21 14:50 Oxygen Delivery Method Room Air Weight: 88.9 kg Body Mass Index (BMI) 37.0 Sodium 141 mmol/L (136-145) 05/01/21 05:05 Potassium 3.9 mmol/L (3.5-5.1) 05/01/21 05:05 Chloride 106 mmol/L (98-107) 05/01/21 05:05 Carbon Dioxide 28.0 mmol/L (21.0-32.0) 05/01/21 05:05 Anion Gap 7 (5-15) 05/01/21 05:05 BUN 14 mg/dL (7-18) 05/01/21 05:05 Creatinine 0.84 mg/dL (0.70-1.30) 05/01/21 05:05 Est GFR (MDRD) Af Amer 114 mL/min (>60) 05/01/21 05:05 Est GFR (MDRD) Non-Af 94 mL/min (>60) 05/01/21 05:05 BUN/Creatinine Ratio 16.7 RATIO (10-20) 05/01/21 05:05 Glucose 116 mg/dL (74-106) H 05/01/21 05:05 Assessment/Plan: 1. Pain: acetaminophen 1000mg PO Q8 and oxycodone 2.5mg PO Q4H PRN pain 4-10. Please continue to monitor for increased pain, PRN usage, constipation and respiratory depression. 2. DVT prophylaxis/atrial fibrillation/hypertension: apixaban 2.5mg PO BID thru 05/07/21 then 5mg PO BID, metoprolol tartrate 100mg PO BID and lisinopril 10mg PO daily. Please continue to monitor for S/S of bleeding, hemoglobin (last 9.2g/dL), BP (last 135/78), HR (last 110), potassium (last 3.9mmol/L), and cough. 3. Gout: allopurinol 300mg PO daily. Please continue to monitor for S/S of gout and renal function. 4. Diabetes mellitus II: metformin 500mg PO BIDCM. Please continue to monitor hemoglobin A1c (last 5.9%), renal function and glucose (last 115mg/dL). 5. GERD: pantoprazole 20mg PO daily. Please continue to monitor for S/S of GERD and diarrhea. 6. Insomnia (trouble sleeping per nursing note): melatonin 10mg PO QHS. Please continue to monitor for excessive drowsiness. 7. Iron deficiency (hemoglobin 9.2g/dL): Ferrex 150mg PO DAILYCM. Please continue to monitor hemoglobin, constipation and dark stools. 8. Vitamin B12 deficiency: cyanocobalamin 1000mcg PO daily. Please continue to monitor for vitamin B12 level (last 10/01/20). Psychotropic Medications: None Unnecessary Medications: None *Bowel Regimen: Miralax 17gm PO daily, senna/docusate 2T PO BID and bisacodyl 10mg PO daily PRN constipation. Patient has refused 4/4 doses of Miralax and 5/7 doses of senna/docusate. Please consider changing both medications to PRN constipation. Thanks. Please continue to monitor for S/S of constipation and PRN usage. Date of Note:: 05/04/21
[2021-05-04 16:26] LABS: Bedside Glucose 96 mg/dL (70-110)
[2021-05-04 17:54] VITALS: PULSE 77
[2021-05-04] MEDS: Senna/Docusate Sodium 1 Tablet 2 TABLET PO (17:54)
--- NOTE | 2021-05-04 19:02 | PCM.DC.SUM ---
Providers Date of Admission: 04/30/21 Primary Care Physician: Dr. David Malin MD Reason For Visit: LEFT TOTAL HIP REPLACEMENT Diagnosis Discharge Diagnosis (1) Status post total hip replacement, left: Status: Acute Code(s): Z96.642 - Presence of left artificial hip joint (2) Debility: Status: Acute Code(s): R53.81 - Other malaise (3) Osteoarthritis of left hip: Status: Acute Code(s): M16.12 - Unilateral primary osteoarthritis, left hip (4) Encephalopathy acute: Status: Acute Code(s): G93.40 - Encephalopathy, unspecified (5) Postoperative anemia: Status: Acute Code(s): D64.9 - Anemia, unspecified (6) Diabetes mellitus: Status: Acute Code(s): E11.9 - Type 2 diabetes mellitus without complications (7) Gout: Status: Acute Code(s): M10.9 - Gout, unspecified (8) Hearing loss: Status: Acute Code(s): H91.90 - Unspecified hearing loss, unspecified ear (9) Hypertension: Status: Chronic Code(s): I10 - Essential (primary) hypertension (10) Hyperlipidemia: Status: Acute Code(s): E78.5 - Hyperlipidemia, unspecified (11) Osteoporosis: Status: Acute Code(s): M81.0 - Age-related osteoporosis without current pathological fracture (12) Atrial fibrillation: Status: Acute Code(s): I48.91 - Unspecified atrial fibrillation Medications at Discharge Home Medications metformin 500 mg tablet 500 mg PO BID 03/01/18 allopurinol 300 mg tablet 300 mg PO DAILY PRN PRN 04/17/20 cyanocobalamin (vitamin B-12) 1,000 mcg tablet 1,000 mcg PO DAILY 07/11/20 omeprazole 20 mg tablet,delayed release 20 mg PO DAILY 07/11/20 metoprolol tartrate 100 mg PO BID 04/09/21 acetaminophen 1,000 mg PO Q8 7 Days #42 tab MDD 3000 MG 04/28/21 lisinopril 10 mg PO DAILY 04/30/21 apixaban [Eliquis] 5 mg PO BID #0 tab 05/04/21 Hospital Course Operations total hip replacement (Left.) Procedures None Summary of Care Provided Minutes Spent on Discharge: 30 Hospital Course: 76 year old male with below past medical history hospitalized for left hip replacement 04/27/[address] Nasir Lopez, complicated by acute encephalopathy, postoperative anemia, admitted to TCU with debility, here for rehabilitation, strengthening, prior to discharge home with . Resident from . Discharge home alone 05/05/2021, [facility] outpatient PT. Physical Exam Const alert and oriented x3 General Appearance: cooperative HEENT normocephalic Eyes PERRL and EOMs intact bilaterally Neck supple, no JVD and no carotid bruits Resp normal respiratory effort, normal air movement and clear to auscultation bilaterally Cardio regular rate and regular rhythm GI normal to inspection, nondistended, normoactive bowel sounds, non-tender and non-distended Extremity normal capillary refill General Extremity: Negative for edema Skin no rashes or lesions noted General Skin Exam: no breakdown Psych affect normal Appearance: appropriate Weight / BMI Weight Weight: 88.9 kg Body Mass Index (BMI) 37.0 ABG / Lab / Microbiology Data Result Diagrams: 05/03/21 13:00 05/01/21 05:05 Laboratory: Laboratory Results - last 24 hr 05/04/21 06:36: POC Glucose 119 H 05/04/21 10:55: POC Glucose 115 H 05/04/21 15:57: POC Glucose 96 Microbiology: Microbiology 04/30/21 20:10 Stool Stool Occult Blood (REJI) - Final D/C Instructions Discharge Diet: No restrictions Discharge Activity: Return to Normal Activity, May Shower and Use Walker Weight Bearing Status: Weight bearing as tolerated Call your doctor if you observe: Fever of 101 or Higher, Inability to urinate, Inability to have a bowel movement, Shortness of breath, Dizziness, Fainting spells, Swelling in the ankles, Chest pain, Increased palpitations (irregular heartbeat) and Uncontrolled pain Additional Instructions: Discharge home alone 05/05/2021, [facility] outpatient PT. Please Follow Up With: Nasir Lopez MD When: As scheduled. Meaningful Use Info Meaningful Use Diagnoses (Choose all that apply): None applicable Discharge Plan Admission Admit Date/Time: 04/30/21 16:00 Primary Reason for Your Visit: Debility. Attending Provider: Reji Chew Chi Primary Care Provider: David Malin Instructions Additional Instructions / Restrictions: Discharge home alone 05/05/2021[facility] outpatient PT. Discharge Orders/Prescriptions Prescriptions: New Eliquis 5 mg Tablet 5 mg PO BID Qty: 0 RF: 0 Continued metformin 500 mg tablet 500 mg PO BID RF: 0 allopurinol 300 mg tablet 300 mg PO DAILY PRN PRN (Reason: gout) RF: 0 cyanocobalamin (vitamin B-12) 1,000 mcg tablet 1,000 mcg PO DAILY RF: 0 omeprazole 20 mg tablet,delayed release (DR/EC) 20 mg PO DAILY RF: 0 metoprolol tartrate 100 MG tablet 100 mg PO BID RF: 0 acetaminophen 500 mg Tablet 1,000 mg PO Q8 MDD 3000 MG 7 Days Qty: 42 RF: 0 lisinopril 10 mg tablet 10 mg PO DAILY RF: 0 Discontinued hydrocodone-acetaminophen 5-325 mg tablet 1 - 2 tab PO Q6H RF: 0 amlodipine 5 mg tablet 5 mg PO DAILY RF: 0 Eliquis 2.5 mg tablet 2.5 mg PO BID RF: 0 metoprolol tartrate 100 mg tablet 100 mg PO BID RF: 0 Referrals / Follow Up: David Malin MD [Primary Care Provider] - Disposition Disposition (needs filled in before D/C Order can be placed): Home, Self Care
[2021-05-04] MEDS: MELATONIN 10 MG TABLET PO (21:00)
[2021-05-04 21:02] VITALS: PULSE 103; RESP 16; O2SAT 98
[2021-05-05 05:00] VITALS: BP 131/69; PULSE 90; RESP 16; TEMP 36.6; O2SAT 99
[2021-05-05 05:21] VITALS: BP 131/69; PULSE 90
[2021-05-05] MEDS: APIXABAN 2.5 MG TABLET PO (05:21)
[2021-05-05] MEDS: Metoprolol Tartrate 100 MG Tablet PO (05:21)
[2021-05-05] MEDS: Cyanocobalamin 500 MCG Tablet 1000 MCG PO (05:22)
[2021-05-05] MEDS: Pantoprazole Sodium 20 MG Tablet PO (05:22)
[2021-05-05] MEDS: Lisinopril 10 MG Tablet PO (05:22)
[2021-05-05] MEDS: Acetaminophen 500 MG Tablet 1000 MG PO (05:22)
[2021-05-05 05:24] VITALS: PULSE 90; RESP 16; O2SAT 99
[2021-05-05 06:30] LABS: Bedside Glucose 98 mg/dL (70-110)
[2021-05-05] MEDS: Iron Polysaccharide Complex 150 MG CAPSULE PO (08:39)
[2021-05-05] MEDS: metFORMIN HCl 500 MG Tablet PO (08:39)
[2021-05-05] MEDS: Allopurinol 300 MG Tablet PO (08:39)
[2021-05-05 08:43] VITALS: BP 101/66; PULSE 92; RESP 18; TEMP 37.2; O2SAT 96
--- NOTE | 2021-05-11 08:32 | MDS.RN ---
Information for the mds was obtained from review of the clinical record, interview of resident, staff, and direct observation of resident's care.
== END 2021-05-05 10:20 | disposition home or self-care (01) | DRG 560 ==
PROVIDERS: Admitting Provider Family Medicine Geriatric Medicine; PCP Family Medicine; Visit Provider Family Medicine Geriatric Medicine
DX: Z47.1 Aftercare following joint replacement surgery (principal); G93.40 Encephalopathy, unspecified; Z96.642 Presence of left artificial hip joint; K21.9 Gastro-esophageal reflux disease without esophagitis; E11.9 Type 2 diabetes mellitus without complications; I10 Essential (primary) hypertension; M10.9 Gout, unspecified; I48.91 Unspecified atrial fibrillation; D51.0 Vitamin B12 deficiency anemia due to intrinsic factor deficiency; E78.5 Hyperlipidemia, unspecified; Z87.891 Personal history of nicotine dependence; Z79.899 Other long term (current) drug therapy; Z79.01 Long term (current) use of anticoagulants; Z79.84 Long term (current) use of oral hypoglycemic drugs
CPT/HCPCS: 36415; 80048; 82274; 82962; 85025; 97110; 97116; 97162; 97166; 97530; 97535; 97802

== ENCOUNTER 2021-10-05 07:10 | Outpatient (CLI) | payer MEDICARE, SELFPAY ==
[2021-10-05 07:49] LABS: Absolute Lymphocyte Count 1.13 X10^3/uL (0.83-4.51); Absolute Neutrophil Count 4.8 X10^3/uL (2.0-7.7); Basophil# 0.04 X10^3/uL; Basophil% 0.5 % (0-1); Eosinophil# 0.18 X10^3/uL; Eosinophils% 2.5 % (0-5); Hematocrit 40.1 % (40-54); Lymphocyte # 1.13 X10^3/ul (0.83-4.51); Lymphocyte % 15.4 % (19-41); Mean Corp Hgb Conc 32.4 g/dL (32-36); Mean Corpuscular Hgb 34.6 pg (27.0-32.0); Mean Corpuscular Volume 106.6 fL (80-94); Monocyte# 1.09 X10^3/uL; Monocyte% 14.9 % (0-10); NRBC Flagged by Analyzer 0 % (0-5); Neutrophil # 4.84 X10^3/uL (2.7-7.7); Neutrophil % 66.2 % (47-70); Platelet Count 195 K/mm3 (150-450); RBC Distribution Width CV 13.7 % (11.6-14.6); RBC Distribution Width SD 53.6 fl (35.1-43.9); Red Blood Count 3.76 M/mm3 (4.6-6.2); White Blood Count 7.3 K/mm3 (4.4-11.0)
[2021-10-05 08:28] LABS: Hemoglobin A1c 6.5 % (3.8-5.6)
[2021-10-05 08:32] LABS: ALB/GLOB Ratio 0.7 RATIO (0.9-2.4); AST(SGOT) 16 U/L (15-37); Alanine Aminotransfer ALT/SGPT 18 U/L (16-61); Albumin, Serum 3.1 g/dL (3.2-5.0); Alkaline Phosphatase 116 U/L (45-117); Anion Gap 7 (5-15); BUN 25 mg/dL (7-18); BUN/Creat Ratio 21.6 RATIO (10-20); Calcium,Total 9.1 mg/dL (8.5-10.1); Chloride 105 mmol/L (98-107); Cholesterol 99 mg/dL (200); Creatinine, Serum 1.16 mg/dL (0.70-1.30); EST Glomerular Filtration Rate 65 mL/min (>60); Est Glom Filt Rate - Afr Amer 78 mL/min (>60); Globulin 4.2 g/dL (2.2-4.2); Glucose 134 mg/dL (74-106); High Density Lipoprotein 51 mg/dL; PSA,Total - Annual Screen 8.22 ng/mL (0.00-4.00); Potassium 4.2 mmol/L (3.5-5.1); Protein, Total 7.3 g/dL (6.4-8.2); Sodium Level 139 mmol/L (136-145); Triglycerides 42 mg/dL; Very Low Density Lipoprotein 8 mg/dL (5-40)
[2021-10-05 09:08] LABS: Vitamin B12 769 pg/mL (211-911)
== END 2021-10-05 23:59 | disposition short-term general hospital (02) ==
LOC: LAB 07:15
PROVIDERS: PCP Family Medicine; Referring Provider Family Medicine; Visit Provider Family Medicine
DX: Z00.00 Encounter for general adult medical examination without abnormal findings (principal); E11.9 Type 2 diabetes mellitus without complications; I10 Essential (primary) hypertension; E53.8 Deficiency of other specified B group vitamins; D51.0 Vitamin B12 deficiency anemia due to intrinsic factor deficiency; Z12.5 Encounter for screening for malignant neoplasm of prostate
CPT/HCPCS: 36415; 80053; 80061; 82607; 83036; 84153; 85025; G0103

== ENCOUNTER → 2023-08-01 | Outpatient (CLI) | payer MEDICARE, SELFPAY ==
--- NOTE | 2023-08-01 07:57 | ECHOD_ITS ---
Reason For Study: PREMATURE VENTRICULAR DEPOLARIZATION Procedure This was a 2D Doppler, Color Flow transthoracic echocardiogram. Exam performed in department. Left Ventricle Normal LV size. Left ventricular systolic function is normal. The estimated ejection fraction is 60 %. No regional wall motion abnormalities noted. Right Ventricle Normal RV size. Normal systolic function. Atria The left atrium is moderately enlarged. The right atrium is severely enlarged. Mitral Valve There is mild to moderate mitral annular calcification. Mild-Moderate (1-2+) eccentric mitral valve insufficiency. Tricuspid Valve Normal tricuspid valve. Moderate (2+) tricuspid valve insufficiency. Pulmonary artery systolic pressure is 49 mmHg. Aortic Valve Trisinus/trileaflet aortic valve. Mild (1+) aortic valve insufficiency. Pulmonic Valve Normal pulmonic valve. Mild (1+) eccentric pulmonic valve insufficiency. Great Vessels Normal aortic root. The pulmonary artery is normal size. Inferior vena cava collapse with sniff. Pericardium/Pleural No pericardial effusion. MMode/2D Measurements & Calculations LVIDd: 4.7 cm IVSd: 1.1 cm LVOT diam: 2.0 cm LVIDs: 3.0 cm LVPWd: 1.3 cm LVOT area: 3.2 cm2 RVDd: 5.5 cm FS: 35.4 % Ao root diam: 3.6 cm LAV(MOD-bp): 136.0 ml LVAd ap4: 25.1 cm2 LAV(MOD-bp) Indexed: 65.5 ml/m2 LVLd ap4: 7.0 cm LAV(MOD-sp2): 170.9 ml EDV(MOD-sp4): 77.9 ml LAV(MOD-sp4): 111.8 ml EDV(sp4-el): 76.4 ml LVAs ap4: 15.1 cm2 LVLs ap4: 6.2 cm ESV(MOD-sp4): 32.2 ml ESV(sp4-el): 31.1 ml EF(MOD-sp4): 58.7 % EF(sp4-el): 59.3 % SV(MOD-sp4): 45.8 ml SV(sp4-el): 45.3 ml LA A4 area: 33.0 cm2 LA dimension(2D): 5.0 cm RA A4 area: 50.2 cm2 TAPSE: 2.6 cm Doppler Measurements & Calculations MV E max alta: 100.3 cm/sec MV P1/2t max alta: 104.7 cm/sec Ao V2 max: 106.0 cm/sec MV P1/2t: 37.1 msec Ao max P.5 mmHg Ao V2 mean: 80.4 cm/sec MV dec slope: 826.7 cm/sec2 Ao mean P.8 mmHg MVA(P1/2t): 5.9 cm2 Ao V2 VTI: 20.3 cm AV (velocity ratio): 0.79 BRITTANY(I,D): 2.5 cm2 BRITTANY(V,D): 2.3 cm2 AI max alta: 415.7 cm/sec LV V1 max: 79.0 cm/sec SV(LVOT): 50.2 ml AI max P.1 mmHg LV V1 max P.5 mmHg LV V1 mean P.3 mmHg AI dec slope: 205.9 cm/sec2 LV V1 mean: 52.0 cm/sec AI P1/2t: 591.5 msec LV V1 VTI: 15.9 cm PA V2 max: 117.2 cm/sec PI dec slope: 206.1 cm/sec2 TR max alta: 330.7 cm/sec PA V2 mean: 73.1 cm/sec TR max P.7 mmHg ECHO/Echo Complete Interpretation Summary Normal LV size. Left ventricular systolic function is normal. The estimated ejection fraction is 60 %. Mild-Moderate (1-2+) eccentric mitral valve insufficiency. Biatrial enlargement Pulmonary artery systolic pressure is 49 mmHg. Ordering Physician: Brando Watts Referring Physician: Brando Watts Performed By: Marta Luciano RCS
== END | disposition home or self-care (01) ==
LOC: CVS 07:57
PROVIDERS: PCP Family Medicine; Referring Provider Internal Medicine Cardiovascular Disease; Visit Provider Internal Medicine Cardiovascular Disease
DX: I49.3 Ventricular premature depolarization (principal)
CPT/HCPCS: 93306

== ENCOUNTER → 2024-04-25 | Outpatient (CLI) | payer MEDICARE, SELFPAY ==
[2024-04-25 17:04] LABS: Absolute Lymphocyte Count 2.41 X10^3/uL (0.83-4.51); Absolute Neutrophil Count 5.7 X10^3/uL (2.0-7.7); Basophil# 0.05 X10^3/uL; Basophil% 0.5 % (0-1); Eosinophils% 3.2 % (0-5); Hematocrit 39.7 % (40-54); Hemoglobin 12.8 g/dL (13.0-16.5); Lymphocyte # 2.41 X10^3/ul (0.83-4.51); Lymphocyte % 25.9 % (19-41); Mean Corp Hgb Conc 32.2 g/dL (32-36); Mean Corpuscular Hgb 34.2 pg (27.0-32.0); Mean Corpuscular Volume 106.1 fL (80-94); Mean Platelet Vol. 11.6 fl (6.2-12.0); Monocyte# 0.83 X10^3/uL; Monocyte% 8.9 % (0-10); NRBC Flagged by Analyzer 0 % (0-5); Neutrophil # 5.68 X10^3/uL (2.7-7.7); Platelet Count 176 K/mm3 (150-450); RBC Distribution Width CV 13.3 % (11.6-14.6); RBC Distribution Width SD 51.5 fl (35.1-43.9); Red Blood Count 3.74 M/mm3 (4.6-6.2); White Blood Count 9.3 K/mm3 (4.4-11.0)
[2024-04-25 17:29] LABS: Anion Gap 5 (5-15); BUN 33 mg/dL (7-18); BUN/Creat Ratio 23.9 RATIO (10-20); Calcium,Total 9.2 mg/dL (8.5-10.1); Chloride 109 mmol/L (98-107); Creatinine, Serum 1.38 mg/dL (0.70-1.30); EST Glomerular Filtration Rate 53 mL/min (>60); Est Glom Filt Rate - Afr Amer 64 mL/min (>60); Glucose 104 mg/dL (74-106); Magnesium 1.7 mg/dL (1.6-2.6); Potassium 4.4 mmol/L (3.5-5.1); Sodium Level 142 mmol/L (136-145)
== END | disposition home or self-care (01) ==
LOC: LAB 15:27
PROVIDERS: PCP Family Medicine; Referring Provider Nurse Practitioner Family; Visit Provider Nurse Practitioner Family
DX: R55 Syncope and collapse (principal); I48.11 Longstanding persistent atrial fibrillation
CPT/HCPCS: 36415; 80048; 83735; 85025

== ENCOUNTER → 2024-05-08 | Outpatient (CLI) | payer MEDICARE, SELFPAY ==
--- NOTE | 2024-05-08 16:15 | STRESSREP ---
Stress Test Report Pharmacologic myocardial perfusion stress test. 79-year-old man with a history of syncope Resting EKG demonstrates atrial fibrillation with a rate of 80 bpm. Resting blood pressure is 122/80 mmHg. 0.4 mg of regadenoson was infused per usual protocol followed by rapid intravenous saline flush injection. Continuous EKG monitoring was performed. The maximum heart rate was 96 bpm which was 69% of max impacted heart rate the maximum workload was 1 metabolic equivalent. At rest there were no ST or T wave changes noted to suggest ischemia and at peak infusion nonspecific ST changes were noted which did not meet the criteria for ischemia. No clinical angina is noted. The final blood pressure was 120/72 mmHg. Myocardial perfusion protocol. 11.3 mCi of technetium 99m sestamibi was injected at rest. 0.4 mg of regadenoson was infused per usual protocol. At peak infusion 34.1 mCi of technetium 99m sestamibi was injected stress images were obtained stress and rest images were reconstructed and compared in the short axis vertical long and horizontal long axis. Gated images were also obtained. Perfusion SPECT analysis: Review of the stress images demonstrate normal uptake of tracer noted in all areas of the myocardium. The resting images similar demonstrated normal uptake of tracer noted in all areas of the myocardium. No areas of reversibility are noted to suggest ischemia and no previous infarct is noted. Gated SPECT analysis: The gated ejection fraction is 64%. Conclusion: Normal pharmacologic myocardial perfusion stress test. Preserved ejection fraction.
== END | disposition home or self-care (01) ==
PROVIDERS: PCP Family Medicine; Referring Provider Nurse Practitioner Family; Visit Provider Nurse Practitioner Family
DX: R55 Syncope and collapse (principal); I48.11 Longstanding persistent atrial fibrillation; E11.9 Type 2 diabetes mellitus without complications; I10 Essential (primary) hypertension; I38 Endocarditis, valve unspecified; E78.2 Mixed hyperlipidemia; I20.89 Other forms of angina pectoris; I49.9 Cardiac arrhythmia, unspecified
CPT/HCPCS: 78452; 93017; A9500; A4216; J2785

== ENCOUNTER → 2025-07-04 | Outpatient (CLI) | payer MEDICARE, SELFPAY ==
--- NOTE | 2025-07-04 10:02 | CDU_ITS ---
Reason For Study Reason For Study: DIZZINESS/LIGHTHEADEDNESS Rt. Velocities/BP Lt. Velocities/BP Prox CCA 45.0/6.5 cm/sec. Prox CCA 79.8/17.1 cm/sec. Mid CCA 55.9/8.7 cm/sec. Mid CCA 57.2/12.8 cm/sec. Dist CCA 43.9/7.6 cm/sec. Dist CCA 43.1/10.0 cm/sec. Prox ICA 31.6/7.2 cm/sec. Prox ICA 34.8/13.9 cm/sec. Mid ICA 72.7/21.6 cm/sec. Mid ICA 69.8/17.9 cm/sec. Dist ICA 59.0/17.9 cm/sec. Dist ICA 82.7/57.2=1.4 cm/sec. Rt. ICA/CCA = 59.0/55.9=1.1. Prox ECA 56.3/5.3 cm/sec. Prox ECA 61.4/5.4 cm/sec. Lt. Vert. 29.7/0.0 cm/sec. Rt. Vert. 22.6/6.0 cm/sec. Right Extracranial There is intimal thickening but no significant atherosclerotic plaque noted in the right common carotid artery. There is heterogeneous, irregular atherosclerotic plaque noted in the right internal carotid artery. The atherosclerotic plaque causes acoustic shadowing. The right internal carotid artery is very tortuous. There is heterogeneous, irregular atherosclerotic plaque noted in the right external carotid artery. Antegrade flow is noted in the right vertebral artery. Left Extracranial There is heterogeneous, irregular atherosclerotic plaque noted in the left common carotid artery. There is heterogeneous, irregular atherosclerotic plaque noted in the left internal carotid artery. The atherosclerotic plaque causes acoustic shadowing. The left internal carotid artery is very tortuous. There is intimal thickening but no significant atherosclerotic plaque noted in the left external carotid artery. Procedure Carotid Duplex [id number]. This is a Carotid Duplex examination using B-mode, color flow and specral Doppler. The study was technically difficult. Exam performed in department. VL/Carotid Duplex Ultrasound Interpretation Summary Mild (<50%) stenosis right extracranial internal carotid. Mild (<50%) stenosis left extracranial internal carotid. Patent and antegrade vertebrals bilaterally. Ordering Physician: Eveline Hayden Referring Physician: David Malin Performed By: Tierra Jimenez, MARY, RVT
--- NOTE | 2025-07-04 10:02 | CDU_ITS ---
Reason For Study Reason For Study: DIZZINESS/LIGHTHEADEDNESS Rt. Velocities/BP Lt. Velocities/BP Prox CCA 45.0/6.5 cm/sec. Prox CCA 79.8/17.1 cm/sec. Mid CCA 55.9/8.7 cm/sec. Mid CCA 57.2/12.8 cm/sec. Dist CCA 43.9/7.6 cm/sec. Dist CCA 43.1/10.0 cm/sec. Prox ICA 31.6/7.2 cm/sec. Prox ICA 34.8/13.9 cm/sec. Mid ICA 72.7/21.6 cm/sec. Mid ICA 69.8/17.9 cm/sec. Dist ICA 59.0/17.9 cm/sec. Dist ICA 82.7/57.2=1.4 cm/sec. Rt. ICA/CCA = 59.0/55.9=1.1. Prox ECA 56.3/5.3 cm/sec. Prox ECA 61.4/5.4 cm/sec. Lt. Vert. 29.7/0.0 cm/sec. Rt. Vert. 22.6/6.0 cm/sec. Right Extracranial There is intimal thickening but no significant atherosclerotic plaque noted in the right common carotid artery. There is heterogeneous, irregular atherosclerotic plaque noted in the right internal carotid artery. The atherosclerotic plaque causes acoustic shadowing. The right internal carotid artery is very tortuous. There is heterogeneous, irregular atherosclerotic plaque noted in the right external carotid artery. Antegrade flow is noted in the right vertebral artery. Left Extracranial There is heterogeneous, irregular atherosclerotic plaque noted in the left common carotid artery. There is heterogeneous, irregular atherosclerotic plaque noted in the left internal carotid artery. The atherosclerotic plaque causes acoustic shadowing. The left internal carotid artery is very tortuous. There is intimal thickening but no significant atherosclerotic plaque noted in the left external carotid artery. Procedure Carotid Duplex [id number]. This is a Carotid Duplex examination using B-mode, color flow and specral Doppler. The study was technically difficult. Exam performed in department. VL/Carotid Duplex Ultrasound Interpretation Summary Mild (<50%) stenosis right extracranial internal carotid. Mild (<50%) stenosis left extracranial internal carotid. Patent and antegrade vertebrals bilaterally. Ordering Physician: Eveline Hayden Referring Physician: David Malin Performed By: Tierra Jimenez, MARY, RVT
== END | disposition home or self-care (01) ==
PROVIDERS: PCP Family Medicine; Referring Provider Nurse Practitioner Gerontology; Visit Provider Nurse Practitioner Gerontology
DX: R42 Dizziness and giddiness (principal); I48.11 Longstanding persistent atrial fibrillation
CPT/HCPCS: 93225; 93226; 93880

== ENCOUNTER → 2025-07-18 | Outpatient (CLI) | payer MEDICARE, SELFPAY ==
--- NOTE | 2025-07-18 09:52 | ECHOD_ITS ---
Reason For Study Reason For Study: AFIB Procedure This was a 2D Doppler, Color Flow transthoracic echocardiogram. Exam performed in department. Left Ventricle Normal LV size. The left ventricular ejection fraction is 65 %. No regional wall motion abnormalities noted. Right Ventricle Moderately dilated right ventricle. Mild global right ventricular systolic dysfunction. Atria The left atrium is severely enlarged. The right atrium is severely enlarged. Mitral Valve There is mild to moderate mitral annular calcification. Mild-Moderate (1-2+) eccentric mitral valve insufficiency. Tricuspid Valve Normal tricuspid valve. Mild-Moderate (1-2+) tricuspid valve insufficiency. Pulmonary artery systolic pressure is 35 mmHg. Aortic Valve Trisinus/trileaflet aortic valve. Moderate focal aortic valve thickening. Mild (1+) aortic valve insufficiency. Great Vessels Moderately calcified aortic root. The pulmonary artery is normal size. Inferior vena cava collapse with respiration. Pericardium/Pleural No pericardial effusion. MMode/2D Measurements & Calculations LVIDd: 4.0 cm IVSd: 1.1 cm LVOT diam: 2.0 cm LVIDs: 2.9 cm LVPWd: 1.4 cm LVOT area: 3.1 cm2 RVDd: 5.3 cm FS: 29.0 % Ao root diam: 3.9 cm LAV(MOD-bp): 141.4 ml LVAd ap4: 26.7 cm2 LAV(MOD-bp) Indexed: 68.2 ml/m2 LVLd ap4: 7.2 cm LAV(MOD-sp2): 120.4 ml EDV(MOD-sp4): 85.5 ml LAV(MOD-sp4): 153.7 ml EDV(sp4-el): 83.7 ml LVAs ap4: 13.8 cm2 LVLs ap4: 6.1 cm ESV(MOD-sp4): 28.3 ml ESV(sp4-el): 26.8 ml EF(MOD-sp4): 66.9 % EF(sp4-el): 68.0 % SV(MOD-sp4): 57.2 ml SV(sp4-el): 56.9 ml LA A4 area: 40.5 cm2 SI(MOD-sp4): 27.6 ml/m2 LA dimension(2D): 5.6 cm RA A4 area: 39.0 cm2 Doppler Measurements & Calculations MV E max alta: 101.2 cm/sec Ao V2 max: 93.2 cm/sec LV V1 max: 78.0 cm/sec Ao max P.5 mmHg LV V1 max P.5 mmHg Ao V2 mean: 68.0 cm/sec LV V1 mean P.4 mmHg Ao mean P.1 mmHg LV V1 mean: 55.5 cm/sec Ao V2 VTI: 16.9 cm LV V1 VTI: 16.1 cm AV (velocity ratio): 0.96 BRITTANY(I,D): 2.9 cm2 BRITTANY(V,D): 2.6 cm2 SV(LVOT): 49.6 ml PA V2 max: 106.0 cm/sec TR max alta: 278.4 cm/sec PA V2 mean: 66.4 cm/sec TR max P.0 mmHg ECHO/Echo Complete Interpretation Summary The left ventricular ejection fraction is 65 %. Moderately dilated right ventricle. Mild global right ventricular systolic dysfunction. The left atrium is severely enlarged. The right atrium is severely enlarged. Mild-Moderate (1-2+) eccentric mitral valve insufficiency. Ordering Physician: Eveline Hayden Referring Physician: Eveline Hayden Performed By: Marta Luciano RCS
== END | disposition home or self-care (01) ==
PROVIDERS: PCP Family Medicine; Referring Provider Nurse Practitioner Gerontology; Visit Provider Nurse Practitioner Gerontology
DX: I48.11 Longstanding persistent atrial fibrillation (principal)
CPT/HCPCS: 93306